=== PATIENT | female | born 1960 | race Caucasian/White ===

== ENCOUNTER 2016-06-22 09:12 | Day surgery (SDC) | payer MEDICARE ==
[~2016-06-22] VITALS: Ht 175.3 cm; Wt 84.4 kg
[~2016-06-22 09:12] MED LIST: AMBIEN5 MG PO; ANUSOL-HC 2.5%30 GM RC; ANUSOL-HC25 MG RC; APAP325 MG PO; BENADRYL50 MG PO; BUMINATE50 ML IV; CARAFATE1 G/10 ML PO; CLARITIN 10 MG10 MG PO; CLARITIN5 MG/5 ML PO; CORDARONE200 MG PO; COUMADIN3 MG PO; COUMADIN5 MG PO; COUMADIN7.5 MG PO; EFFIENT10 MG PO; FLORANEX / LACT1 TAB PO; FLORINEF 0.1 M0.1 MG PO; GEMFIBROZIL600 MG PO; HYDROCODONE-APA1 TAB PO; JANTOVEN6 MG PO; KLONOPIN1 MG PO; LANOXIN125 MCG PO; LEXAPRO20 MG PO; LOPID600 MG PO; LOVENOX INJ100 MG/ML SC; LYRICA25 MG PO; MELATONIN 10 M1 EACH PO; MIDODRINE HCL5 MG PO; MIRAPEX PO; MIRAPEX0.125 MG PO; MOBIC7.5 MG PO; NEURONTIN600 MG; NEURONTIN600 MG PO; NORCO 5/325 TAB1 TA1 PO; PHOSLO667 MG PO; PLAVIX75 MG PO; PRILOSEC20 MG PO; PROAMATINE5 MG PO; PROTONIX40 MG PO; REGLAN5 MG PO; RENVELA800 MG PO; ROCALTROL0.25 MCG PO; SENSIPAR60 MG PO; TESSALON PERLE100 MG PO; TUMS500 MG PO; XANAX0.25 MG PO; ZOCOR80 MG PO; ZOLOFT25 MG PO
[2016-06-22 09:50] LABS: BASOPHILS 0.2 % (0.0-2.0); EOSINOPHILS 2.1 % (0-7); HEMATOCRIT 42.5 % (36.0-48.0); HEMOGLOBIN 12.5 g/dL (12-16); IMMATURE GRANULOCYTES 0.2 % (0-5); LYMPHOCYTES 28.2 % (15-50); MCH 26.3 pg (26.0-34.0); MCHC 29.4 g/dL (31.0-37.0); MCV 89.5 fL (80.0-100.0); MEAN PLATELET VOLUME 12.1 fL (7.4-10.4); MONOCYTES 8.4 % (2-11); NEUTROPHILS 60.9 % (40-80); RBC 4.75 10x6/uL (4.00-5.40); RDW 16.8 % (11.5-14.5); WBC 6.3 10x3/uL (4.8-10.8)
[2016-06-22 10:00] LABS: ANION GAP 10.5 mmol/L (8-16); CALCIUM 9.4 mg/dL (8.5-10.1); CARBON DIOXIDE 33.9 mmol/L (21.0-32.0); CREATININE - SERUM 5.8 mg/dL (0.6-1.3); POTASSIUM - SERUM 3.4 mmol/L (3.5-5.1)
[2016-06-22 10:09] LABS: PLATELET COUNT 150 10x3/uL (130-400)
[2016-06-22 10:10] LABS: APTT 37.4 SECONDS (22.8-39.4); INR 1.82 (0.85-1.17)
[2016-06-22] MEDS ORDERED: RESTORIL7.5 MG PO (11:33)
[2016-06-22 11:36] VITALS: BP 148/87; Ht 175.3 cm; Wt 84.4 kg
[2016-06-22] MEDS ORDERED: ULTRAM50 MG PO (13:14)
--- NOTE | 2016-06-29 14:04 | OP ---
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 POSTOPERATIVE DIAGNOSIS: Squamous cell carcinoma 2 cm in diameter. OPERATION PERFORMED: Excision of a malignant lesion 2 cm in diameter with 0.5 cm margins medially and laterally excising a 7 x 3 cm vertically oriented ellipse of skin. SURGEON: Victorino Da Silva MD ANESTHESIA: Local 1% lidocaine with epinephrine with monitoring by TALENT MANAGER. REFERRING PHYSICIAN: Dr. Curran, Dr. Wang and also Dr. Yen in [place], [place]. PREOPERATIVE NOTE: Ms. Sanchez is a very nice, but a very chronically ill 55-year-old white female, diabetic with end-stage renal disease, on chronic hemodialysis. She has a history of multiple dialysis access thrombosis, hypercoagulable state. She is on chronic anticoagulation therapy and has dialysis 3 days a week. She has at this time, a 2 cm diameter piled up lesion on the dorsum of her left arm, which has recurred after cryotherapy treatment, it has a clinical appearance of a keratoacanthoma, but it certainly may represent a squamous cell carcinoma. It is quite fast growing. She has no evidence of metastasis. She is brought to the operating room at this time to excise the lesion under local and get a diagnosis and margin clearance with frozen section. DESCRIPTION OF PROCEDURE: The patient was placed in supine position and prepped and draped in sterile manner. She had no IV access and we did not give her any IV sedation. Her vital signs were just monitored by the glove maker. I outlined a vertically oriented ellipse, which was 7 cm x 3 cm providing a 0.5 cm margin on the medial and lateral sides of this round lesion, approximately quarter size. The area was infiltrated with lidocaine and then the incision was completed sharply and the specimen was dissected away from the underlying subcutaneous tissues with electrocautery. Sutures were placed, one short suture on the lateral margin and one longer suture on the distal tip of the ellipse and tissue was taken in fresh state to Dr. Ocasio, he performed a frozen section and his diagnosis was squamous cell carcinoma, invasive with clear margins. The wound was examined and hemostasis was obtained with minimal electrocautery. Flaps medially and laterally were raised with blunt dissection and some electrocautery and a primary closure was achieved with a few interrupted inverted 3-0 Vicryl subcutaneous sutures and a running 4-0 Prolene. The wound was dressed with Maxorb Ag, Tegaderm and Cavilon skin prep over which a sterile dry gauze dressing and Spandage were applied. The patient was then taken back to her room in the outpatient department in stable condition. Blood loss was trivial and unreplaced and all sponges, instruments, and needles were accounted for. No drain was used and the surgical specimen was as described. OPERATIVE REPORT [id number] RICHELLE SANCHEZ PLAN: The patient will resume her usual diet and medications. She will resume her usual daily dose of Coumadin starting tomorrow. She will leave the original dressing in place and intact and keep it dry and come to see me in my office next week and I will change her dressing then. I imagine her stitches will need to remain in for about 2 weeks. TRANSINT:[id number] Voice Confirmation ID: [id number] DOCUMENT ID: [id number] VICTORINO DA SILVA MD at 1404 CC: LIZ CURRAN MD, JESUS YEN DO and LONI WANG [id number] DICTATION DATE: 06/22/16 1336 WRAPPER AND PRESERVER: 06/22/16 1800 [facility] 06/22/16 [id number] [place] [address]
== END 2016-06-22 14:40 | disposition home or self-care (01) ==
LOC: D.OPS 09:12
PROVIDERS: Internal Medicine Nephrology
DX: C44.629 Squamous cell carcinoma of skin of left upper limb, including shoulder (principal); G47.30 Sleep apnea, unspecified; K21.9 Gastro-esophageal reflux disease without esophagitis; E11.22 Type 2 diabetes mellitus with diabetic chronic kidney disease; N18.6 End stage renal disease; Z99.2 Dependence on renal dialysis

== ENCOUNTER 2016-08-31 12:38 | Inpatient (IN) | payer MEDICARE ==
[~2016-08-31] VITALS: Ht 175.3 cm; Wt 82.7 kg
[~2016-08-31 12:38] MED LIST changes: -SERTRALINE HCL 50 MG PO; -TEMAZEPAM30 MG PO
--- NOTE | 2016-08-31 23:47 | NUR ---
PT RECEIVED VIA STRETCHER, AWAKE, ALERT, ORIENTED, MOTHER AT SIDE. PT DEMONSTRATES GENERALIZED WEAKNESS TRANSFERRING FROM STRETCHER TO BED, REQUIRING MINIMAL ASSISTANCE. CHIQUITA SHEBA, ROUGH ROUNDER FOR RENAL, WAS NOTIFIED OF PTS ADMITTANCE. SHE DID ORDER NORCO 10/325 1 PO Q 4 HOURS PRN PAIN AND A CHEST X-RAY R/T PT C/O LEFT SIDED RIB/CHEST PAIN FROM FALL. PT DOES HAVE PRESSURE WRAPS TO BLE AND LEFT ELBOW, NO DRAINAGE, BLEEDING, OR OOZING AT THIS TIME. WILL CONTINUE TO MONITOR CLOSELY.
[2016-09-01] VITALS (7 sets, daily range): BP systolic 82–143; BP diastolic 41–70; Ht 175.3 cm; Wt 82.7 kg
[2016-09-01] MEDS ORDERED: TEMAZEPAM30 MG PO (03:57)
[2016-09-01] MEDS ORDERED: LYRICA25 MG PO (04:00)
[2016-09-01] MEDS ORDERED: SERTRALINE HCL 50 MG PO (04:01)
[2016-09-01 05:49] LABS: BASOPHILS 0.2 % (0-2); EOSINOPHILS 2.1 % (0-7); HEMATOCRIT 31.8 % (36.0-48.0); HEMOGLOBIN 9.6 g/dL (12-16); IMMATURE GRANULOCYTES 0.2 % (0-5); LYMPHOCYTES 27.3 % (15-50); MCH 27.9 pg (26.0-34.0); MCHC 30.2 g/dL (31.0-37.0); MCV 92.4 fL (80.0-100.0); MEAN PLATELET VOLUME 10.8 fL (7.4-10.4); MONOCYTES 7.5 % (2-11); NEUTROPHILS 62.7 % (40-80); PLATELET COUNT 133 10x3/uL (130-400); RBC 3.44 10x6/uL (4.00-5.40); RDW 15.8 % (11.5-14.5); WBC 5.7 10x3/uL (4.8-10.8)
--- NOTE | 2016-09-01 06:00 | NUR ---
PT LYING IN BED, EYES CLOSED, RESPIRATIONS EVEN AND UNLABORED. PT IS EASILY ROUSABLE TO VERBAL STIMULI, STATES HER NORCO PRN PAIN IS NOT HELPING AT THIS TIME WITH HER RECENT FALL AND MULTIPLE LACERATIONS. PT DENIES ANY OTHER NEEDS AND IS IN NO ACUTE DISTRESS AT THIS TIME. CONTINUE TO MONITOR CLOSELY. BED LOW, CALL LIGHT IN REACH, SIDE RAILS X 2, HOB 20 DEGREES, MOTHER AT BEDSIDE.
--- NOTE | 2016-09-01 08:06 | NUR ---
PAGED ALFA GLEASON, WAITING ON HER TO CALL BACK.
--- NOTE | 2016-09-01 08:30 | NUR ---
ADMINISTERED 10MG OF NORCO FOR PAIN LEVEL OF 7/10. PT DENIES ANY OTHER NEEDS AT THIS TIME. CALL LIGHT IN REACH, NAD NOTED, FAMILY AT BEDSIDE, WILL CONTINUE TO MONITOR.
--- NOTE | 2016-09-01 10:27 | NUR ---
DIALYSIS COORDINATOR: PATHWAYS: [facility] Tue/Tue/Tue @ 6:20am. Medical records forwarded to home unit for their records. ISABELLA HILL.
--- NOTE | 2016-09-01 11:29 | NUR ---
ADMINISTERED MEDS ORDER, PT IN BED, DENIES ANY NEEDS AT THIS TIME. CALL LIGHT IN REACH, FAMILY AT BEDSIDE, NAD NOTED, WILL CONTINUE TO MONITOR.
[2016-09-01 11:37] LABS: INR 1.94 (0.85-1.17); PROTIME 22.2 SECONDS (11.6-15.0)
[2016-09-01 11:44] LABS: ANION GAP 13.8 mmol/L (8-16); CALCIUM 7.6 mg/dL (8.5-10.1); CARBON DIOXIDE 29.2 mmol/L (21.0-32.0); CREATININE - SERUM 7.7 mg/dL (0.6-1.3)
--- NOTE | 2016-09-01 13:51 | NUR ---
ADMINISTERED NORCO 10MG FOR PAIN LEVEL OF 9/10. PT DENIES ANY OTHER NEEDS AT THIS TIME. FAMILY AT BEDSIDE, NAD NOTED, WILL CONTINUE TO MONITOR.
--- NOTE | 2016-09-01 15:17 | NUR ---
IV ACCESS-22 GAUGE INSERTED IN LEFT AC AREA FOR ACCESS. VASU TELLO RN
--- NOTE | 2016-09-01 16:43 | NUR ---
PT TRANSFERED TO DIALYSIS AT THIS TIME, VIA BED, NAD NOTED.
--- NOTE | 2016-09-01 17:39 | NUR ---
RECEIVED CALL FROM MARIE BEAN FOR BUPRENEX 0.1MG Q4PRN.
--- NOTE | 2016-09-01 18:28 | NUR ---
ADMINISTERED 0.1MG OF BUPRENEX FOR PAIN LEVEL OF 8/10. PT GETTING DIALYSIS AT THIS TIME. NAD NOTED.
--- NOTE | 2016-09-01 18:43 | NUR ---
RECEIVED CALL FROM ALFA GLEASON, SHE STATED TO GIVE PT A ONE TIME DOSE OF 10MG OF COUMADIN AND THAT PT WOULD START BACK ON REGULAR DOSE TOMORROW.
--- NOTE | 2016-09-01 19:30 | NUR ---
RECEIVED REPORT, PT IS DOWN IN DIALYSIS,
[2016-09-02 04:00] VITALS: BP 102/46
--- NOTE | 2016-09-02 04:05 | NUR ---
ASSESSMENT COMPLETE, SEE FLOWSHEET, PT COMPLAINS OF PAIN, WILL GIVE PAIN MEDS ORDER, FAMILY AT BEDSIDE, BED IS LOW, SRX2, WILL CONTINUE TO MONITOR
[2016-09-02 05:47] LABS: BASOPHILS 0.2 % (0-2); HEMATOCRIT 29.1 % (36.0-48.0); HEMOGLOBIN 8.7 g/dL (12-16); LYMPHOCYTES 29.5 % (15-50); MCHC 29.9 g/dL (31.0-37.0); MCV 93.6 fL (80.0-100.0); MEAN PLATELET VOLUME 11.7 fL (7.4-10.4); MONOCYTES 8.6 % (2-11); NEUTROPHILS 59.7 % (40-80); RBC 3.11 10x6/uL (4.00-5.40); RDW 15.8 % (11.5-14.5)
[2016-09-02 06:04] LABS: ANION GAP 11.9 mmol/L (8-16); CARBON DIOXIDE 30.2 mmol/L (21.0-32.0); CREATININE - SERUM 6.3 mg/dL (0.6-1.3); INR 2.11 (0.85-1.17); POTASSIUM - SERUM 3.1 mmol/L (3.5-5.1); PROTIME 23.7 SECONDS (11.6-15.0)
[2016-09-02 06:16] LABS: PLATELET COUNT 106 10x3/uL (130-400); WBC 4.1 10x3/uL (4.8-10.8)
--- NOTE | 2016-09-02 07:44 | NUR ---
AM ROUNDING- RECEIVED REPORT FROM LINEN MANAGER NURSE OPAL. PT IS CURRENTLY LAYING IN BED ON BACK WITH EYES OPEN RESTING. GUEST AT BEDSIDE. ON ROOM AIR. NO MONITOR. IV SEEN TO RIGHT AC THAT IS CURRENTLY SALINE LOCKED. RESERVE LEFT ARM FOR AVF. PT STATES DR. BARLOW STATES PT CAN GO HOME TODAY. WILL CONTINUE TO MONITOR AND CONTINUE WITH PLAN OF CARE.
[2016-09-02 08:17] VITALS: BP 112/46
[2016-09-02 12:00] VITALS: BP 101/46
--- NOTE | 2016-09-02 13:50 | NUR ---
MARILEE MOROCHO (WOUND CARE NURSE) IN PTS ROOM NOW DOING DRESSING CHANGES TO ALL PTS WOUNDS. WILL CONTINUE TO MONITOR.
--- NOTE | 2016-09-02 14:08 | NUR ---
Wound Care Consult: Pt was admitted 09/01 after falling at home and cutting up her legs and left arm. She was on a blood thinner and it was difficult to control bleeding from lacerations. She has a large cut on the left caro with sutures, another on the right caro with sutures, left thigh and left elbow. Pt also has a chronic nonhealing wound on her lower abdomen. All dressings were removed and wounds/lacerations assessed. Bilateral lower leg wounds have intact sutures, no redness, no edema, no odor and have stopped bleeding. Gently cleansed and patted dry. Covered with Adaptic, 4x4s and secured with LINH wraps. The left lower leg has developed 2 large blisters below the pressure dressing. These were left open to air and the lower leg was elevated on a pillow. Left thigh has a laceration that was cleaned and covered with adaptic, 4x4s and secured with a bordered gauze. Left elbow laceration was cleaned and covered with adaptic, 2x2s and secured with bordered gauze. The abdominal wound which measures 4cm x 3cm had a moderate amount of serous drainage, but no odor. It was cleaned and dried and covered with a small piece of Maxorb AG and a bordered gauze. Pt tolerated well. Wound care will continue monitoring.
[2016-09-02 15:59] VITALS: BP 108/52
--- NOTE | 2016-09-02 17:32 | NUR ---
PT IS SITTING UP IN BED EATING DINNER. DENIES ANY NEED AT CURRENT TIME. GUEST AT BEDSIDE. WILL CONTINUE TO MONITOR.
[2016-09-02 19:00] VITALS: BP 112/46
--- NOTE | 2016-09-02 19:25 | NUR ---
RECEIVED REPORT, PT ON ROOM AIR, IV-RAC-SL, PT HAS LAVF-WNL, DIALYSIS, MON, WED, FRI, DRESSING TO ABDOMEN, L.ELBOW, AND BILATERAL LEGS, FAMILY AT BED SIDE, PT ASKING FOR PAIN MEDS, WILL GIVE ORDER, PT HAS COLOSTOMY TO L.SIDE, BED IS LOW, SRX2, ALARM IS ON, WILL CONTINUE PLAN OF CARE
[2016-09-03] VITALS: BP 116/50
[2016-09-03 04:00] VITALS: BP 116/62
[2016-09-03 06:53] LABS: BASOPHILS 0 % (0-2); EOSINOPHILS 2.6 % (0-7); HEMATOCRIT 27.9 % (36.0-48.0); HEMOGLOBIN 8.2 g/dL (12-16); IMMATURE GRANULOCYTES 0.2 % (0-5); LYMPHOCYTES 28.8 % (15-50); MCH 27.6 pg (26.0-34.0); MCHC 29.4 g/dL (31.0-37.0); MCV 93.9 fL (80.0-100.0); MEAN PLATELET VOLUME 11.7 fL (7.4-10.4); MONOCYTES 7.2 % (2-11); NEUTROPHILS 61.2 % (40-80); RBC 2.97 10x6/uL (4.00-5.40); RDW 15.7 % (11.5-14.5); WBC 4.6 10x3/uL (4.8-10.8)
[2016-09-03 06:54] LABS: PLATELET COUNT 129 10x3/uL (130-400)
[2016-09-03 07:02] LABS: INR 2.36 (0.85-1.17)
[2016-09-03 07:11] LABS: CALCIUM 8.1 mg/dL (8.5-10.1); CARBON DIOXIDE 31.3 mmol/L (21.0-32.0); POTASSIUM - SERUM 3.3 mmol/L (3.5-5.1)
--- NOTE | 2016-09-03 07:51 | NUR ---
AM ROUNDING- RECEIVED REPORT FROM TRACTOR DRIVER TEAMSTER NURSE OPAL. PT IS CURRENTLY SITTING UP IN BED WITH EYES OPEN RESTING. GUEST AT BEDSIDE. ON ROOM AIR. NO MONITOR. IV SEEN TO RIGHT AC THAT IS CURRENTLY SALINE LOCKED. RESERVE LEFT ARM FOR AVF. PT IS SUPPOSE TO DIALYZE TODAY PER ELLEN, PERSONAL VEHICLE ADVISOR AND THEN POSSIBLY D/C HOME TODAY. NO NEED AT CURRENT TIME. WILL CONTINUE TO MONITOR AND CONTINUE WITH PLAN OF CARE.
[2016-09-03 08:52] VITALS: BP 105/57
--- NOTE | 2016-09-03 15:32 | NUR ---
Patient Name: RICHELLE CONNOLLY Admission Status: ER Accout number: [id number] Admission Date: 08-31-2016 : 1960 Admission Diagnosis:LACERATION WITHOUT FOREIGN BODY, LEFT LOWER LEG, INIT E Attending: JAVIER Current LOS: 3 Anticipated DC Date: 09-03-2016 Planned Disposition: Home with Home Health Primary Insurance: MEDICARE A & B PLANNED EXTERNAL PROVIDER: [facility] Discharge Planning Comments: * Is the patient Alert and Oriented? Yes 0 * How many steps to enter\exit or inside your home? RAMP 0 * PCP DR. YEN 0 * Pharmacy [facility] [place] [facility] 0 * Preadmission Environment Home with Family 0 * ADLs Independent 0 * Equipment Oxygen Walker 0 * Other Equipment UNKNOWN MEDICAL EQUIPMENT PROVIDER 0 * List name and contact numbers for known caregivers / representatives who currently or will assist patient after discharge: OSEI CONNOLLY, MOTHER, 0 * Community resources currently utilized Other 0 * Please name any agencies selected above. OUTPATIENT DIALYSIS, [facility], MWF, 0600, [facility] 0 * Additional services required to return to the preadmission environment? Yes * Can the patient safely return to the preadmission environment? Yes 0 * Has this patient been hospitalized within the prior 30 days at any hospital? No 0 CM RECEIVED HOME HEALTH AND DISCHARGE ORDER. CM MET WITH PT IN ROOM TO DISCUSS DISCHARGE PLANNING AND NEEDS. PT REPORTS LIVING AT HOME INDEPENDENTLY WITH HER TEEN DAUGHTERS. PT HAS OXYGEN AND WALKER FROM UNKNOWN PROVIDER. PT ATTENDS [facility], M/W/F, 0600, [facility]. PT HAS NO OTHER OUTSIDE SERVICES ASSISTING IN THE HOME. CM DISCUSSED AVAILABILITY OF HOME HEALTH, REHAB SERVICES AND MEDICAL EQUIPMENT. PT ACCEPTED HOME HEALTH, REPORTS HER DAUGHTER MAY BE TEACHABLE FOR WOUND CARE, REQUESTED HOME HEALTH WITH [employer] CHOICE SIGNED, REPORTS HER MOTHER WILL PICK HER UP FOR DISCHARGE HOME TODAY. IMPORTANT MESSAGE FROM MEDICARE PROVIDED AND EXPLAINED. CM CALLED DEDE OF [facility], , REFERRAL PROVIDED AND REQUESTED WEEKEND FOLLOW UP. DEDE PLACED PT ON SCHEDULE FOR TUESDAY ADMIT. CM FAXED REFERRAL AND DISCHARGE INFORMATION TO [facility], . PT AND PT'S MOTHER NOTIFIED, NO FURTHER DISCHARGE NEEDS IDENTIFIED. Bag Shop Worker: Juan Goncalves
--- NOTE | 2016-09-03 16:09 | NUR ---
D/C INSTRUCTIONS EXPLAINED TO PT. D/C PAPERWORK SIGNED BY PT AND PLACED IN CHART. IV TO RIGHT AC REMOVED WITH CATH TIP INTACT. PT HAD SLIGHT BLEEDING FROM WHERE TAPE WAS REMOVED, COVERED SITE WITH 2X2 GAUZE PADS AND SECURED WITH TEGADERM. [facility] HU[facility]ES CALLED AND STATES TO HAVE PT COME BY OFFICE AFTER D/C AND [facility] WILL PROVIDE PT WILL WRITTEN PRESCRIPTIONS FOR D/C MEDICATIONS. PT AND FAMILY AWARE. PT AND MOTHER ARE AWAITING RIDE TO GET HER. WILL CONTINUE TO MONITOR.
--- NOTE | 2016-09-03 17:05 | NUR ---
PT D/C VIA WHEELCHAIR.
== END 2016-09-03 17:06 | disposition home health service (06) | DRG 813 ==
LOC: D.ER 12:38 → D.M2 22:01
PROVIDERS: Emergency Medicine; ADMIT Internal Medicine
PROC: 0HQLXZZ Repair Left Lower Leg Skin, External Approach (ICD-10-PCS; principal; 2016-08-31)
PROC: 0HQKXZZ Repair Right Lower Leg Skin, External Approach (ICD-10-PCS; principal; 2016-08-31)
DX: D68.32 Hemorrhagic disorder due to extrinsic circulating anticoagulants (principal); N18.6 End stage renal disease; Q61.3 Polycystic kidney, unspecified; D68.59 Other primary thrombophilia; S81.812A Laceration without foreign body, left lower leg, initial encounter; S81.811A Laceration without foreign body, right lower leg, initial encounter; R58 Hemorrhage, not elsewhere classified; T45.515A Adverse effect of anticoagulants, initial encounter; Z99.2 Dependence on renal dialysis; W19.XXXA Unspecified fall, initial encounter; I95.9 Hypotension, unspecified; D63.1 Anemia in chronic kidney disease; E83.39 Other disorders of phosphorus metabolism; F32.9 Major depressive disorder, single episode, unspecified; F41.9 Anxiety disorder, unspecified

== ENCOUNTER → 2016-08-31 | Emergency (ER) | payer MEDICARE ==
[2016-06-22 11:36] VITALS: BMI 27.5
[~2016-08-31] MED LIST changes: +RESTORIL7.5 MG PO; +SERTRALINE HCL 50 MG PO; +TEMAZEPAM30 MG PO; +ULTRAM50 MG PO
[2016-08-31 16:51] LABS: BASOPHILS 0.2 % (0-2); EOSINOPHILS 2.2 % (0-7); HEMATOCRIT 37.4 % (36.0-48.0); HEMOGLOBIN 11.3 g/dL (12-16); IMMATURE GRANULOCYTES 0.2 % (0-5); LYMPHOCYTES 26.7 % (15-50); MCH 28.1 pg (26.0-34.0); MCHC 30.2 g/dL (31.0-37.0); MEAN PLATELET VOLUME 10.9 fL (7.4-10.4); MONOCYTES 8.1 % (2-11); NEUTROPHILS 62.6 % (40-80); PLATELET COUNT 153 10x3/uL (130-400); RBC 4.02 10x6/uL (4.00-5.40); RDW 15.6 % (11.5-14.5); WBC 6.3 10x3/uL (4.8-10.8)
[2016-08-31 17:05] LABS: INR 2.01 (0.85-1.17); PROTIME 22.8 SECONDS (11.6-15.0)
[2016-08-31 17:49] LABS: ANION GAP 14.6 mmol/L (8-16); BILIRUBIN - TOTAL 0.5 mg/dL (0.2-1.3); CALCIUM 7.8 mg/dL (8.5-10.1); CARBON DIOXIDE 29.4 mmol/L (21.0-32.0); CREATININE - SERUM 6.4 mg/dL (0.6-1.3); PROTEIN - SERUM 5.9 g/dL (6.4-8.2)
== END ==
LOC: D.ER 12:41
PROVIDERS: Emergency Medicine
DX: S81.812A Laceration without foreign body, left lower leg, initial encounter (principal); S81.811A Laceration without foreign body, right lower leg, initial encounter; X58.XXXA Exposure to other specified factors, initial encounter; Y93.89 Activity, other specified; Y92.89 Other specified places as the place of occurrence of the external cause; I71.4 Abdominal aortic aneurysm, without rupture; N18.9 Chronic kidney disease, unspecified; E83.51 Hypocalcemia

== ENCOUNTER 2016-09-24 10:13 | Inpatient (IN) | payer MEDICARE ==
[~2016-09-24] VITALS: Ht 175.3 cm; Wt 74.3 kg
--- NOTE | ~2016-09-24 | OP ---
PATIENT NAME: RICHELLE SANCHEZ MEDICAL RECORD: [id number] :[birth year] LOCATION:. D.[id number] ADMISSION DATE: SURGEON: VICTORINO DA SILVA MD DATE OF OPERATION: 09/24/2016 PREOPERATIVE DIAGNOSIS: Somewhat neglected infected necrotic soft tissue wound, left leg. POSTOPERATIVE DIAGNOSIS: Somewhat neglected infected necrotic soft tissue wound, left leg. OPERATION PERFORMED: Sharp excisional debridement. SURGEON: Victorino Da Silva MD ANESTHESIA: General with LMA per Dr. Muniz. REFERRING PHYSICIAN: Dr. Yen. PREOPERATIVE NOTE: Ms. Sanchez is a 56-year-old white female patient well known to me. She has end-stage renal disease. She is on chronic hemodialysis and has a coagulopathy with multiple dialysis access procedures. She does well with her HeRO graft if she is maintained on anticoagulation with Coumadin and so her Coumadin has not been discontinued. She fell about a month ago and sustained a deep tangential laceration on the lateral aspect of the left leg, middle third and this was I believe sutured in the Emergency Room that evening. This sutures I do not think were removed in a timely manner. She has now a necrotic wound, which needs a sharp excision and aggressive local wound care as well as intravenous antibiotics. DESCRIPTION OF PROCEDURE: Under anesthesia in supine position, the patient was prepped and draped in sterile manner. The wound is 10 x 15 cm was sharply debrided with a scalpel and curette, some discrete use of electrocautery was necessary for hemostasis. The wound was irrigated with the power irrigation device with saline and Hibiclens and then rinsed with saline. The wound was then packed with gauze, wet with Ancef and gentamicin solution and further dry dressings applied over that and Timmy wrap was applied with a light compression. The patient was awakened and taken to the recovery room in stable condition. PLAN: The patient needs to be hospitalized for wound care and intravenous antibiotics. She will need to have her legs elevated and have the dressing changed b.i.d. Dakin solution 1/4 strength b.i.d. She will most likely be discharged from the hospital first of next week. In the meantime, she will need to have dialysis here. I have started her on vancomycin with 1 gram IV now in the recovery room and renal dose Zosyn. Nephrology will be seeing her and continue her vancomycin dosage. We will consult home health and I ask him to see her prior to her discharge and to carry out the wet-to-dry dressings at home. I would like her to be seen if possible in the [facility] wound care clinic by Dr. Duarte and thereafter home health can be involved and follow instructions per Dr. Duarte. Debrided today was necrotic skin, subcutaneous fat, fascia and muscle. No bone. Cultures were taken for aerobic and anaerobic organisms. OPERATIVE REPORT [id number] RICHELLE SANCHEZ TRANSINT:[id number] Voice Confirmation ID: [id number] DOCUMENT ID: [id number] VICTORINO DA SILVA MD CC: JESUS YEN DO and LONI LAL MD [id number] DICTATION DATE: 09/24/16 1746 MEDICATION ADMINISTRATION PROFESSIONAL: 09/25/16 0259 [facility] [address] [place] [address]
[~2016-09-24 10:13] MED LIST changes: +SERTRALINE HCL 50 MG PO; +TEMAZEPAM30 MG PO
[2016-09-24 13:52] LABS: BASOPHILS 0.2 % (0-2); EOSINOPHILS 1.4 % (0-7); HEMATOCRIT 41.3 % (36.0-48.0); HEMOGLOBIN 11.9 g/dL (12-16); IMMATURE GRANULOCYTES 0.2 % (0-5); LYMPHOCYTES 21.7 % (15-50); MCH 27.5 pg (26.0-34.0); MCHC 28.8 g/dL (31.0-37.0); MCV 95.6 fL (80.0-100.0); MEAN PLATELET VOLUME 10.6 fL (7.4-10.4); NEUTROPHILS 69.5 % (40-80); RBC 4.32 10x6/uL (4.00-5.40); RDW 15.9 % (11.5-14.5); WBC 5.2 10x3/uL (4.8-10.8)
[2016-09-24 13:57] LABS: PLATELET COUNT 208 10x3/uL (130-400)
[2016-09-24 14:05] LABS: ANION GAP 14.5 mmol/L (8-16); APTT 48.2 SECONDS (22.8-39.4); CALCIUM 8.5 mg/dL (8.5-10.1); CARBON DIOXIDE 30.7 mmol/L (21.0-32.0); INR 2.49 (0.85-1.17); POTASSIUM - SERUM 3.2 mmol/L (3.5-5.1)
[2016-09-24 15:25] VITALS: BMI 26.8
--- NOTE | 2016-09-24 19:22 | NUR ---
ARRIVED IN PACU WITHOUT IV ACCESS. DR. DA SILVA CONSULTED REGARDING LOW BLOOD PRESSURE AND NO IV ACCESS. INSTRUCTED BY DR. DA SILVA TO SET UP FOR CENTRAL LINE INSERTION. TRIPLE LUMEN WAS PLACED AT 1815 WITHOUT DIFFICULTY. 200CC OF 0.9% NS BOLUS PER DR. DA SILVA.
--- NOTE | 2016-09-24 19:29 | NUR ---
DRESSING TO LEFT LOWER LEG INFORCED PER DR. DA SILVA.
--- NOTE | 2016-09-24 20:00 | NUR ---
PT RECEIEVED TO ROOM 210 VIA STRETCHER ACCOMPANIED BY RECOVERY ROOM NURSE. DAUGHTER IN ROOM AT THIS TIME. PT ORIENTED TO ROOM AND CALL LIGHT. VERBALIZES UNDERSTANDING. REQUESTS ICE WATER AND MEDICATION FOR PAIN PT RATES 7/10 TO THE LEFT LEG. DENIES OTHER NEEDS. BED LOW. PHONE AND CALL LIGHT IN REACH. SRX2.
--- NOTE | 2016-09-24 22:27 | NUR ---
PT RESTING QUIETLY AT THIS TIME AAOX3 WATCHING TV. STATES PAIN IS A LITTLE BIT BETTER. PT DENIES NEEDS AT THIS TIME. BED LOW. PHONE AND CALL LIGHT IN REACH. SRX2.
--- NOTE | 2016-09-24 22:55 | NUR ---
VANC IVPB INITIATED AT THIS TIME. PT AAOX3. REQUESTS ICE WATER. DENIES OTHER NEEDS. BED LOW. PHONE AND CALL LIGHT IN REACH. SRX2.
--- NOTE | 2016-09-24 23:40 | NUR ---
PT RESTING WELL WITHOUT C/O OR DISTRESS NOTED. NO CHANGES NOTED IN ASSESSMENT. CALL LIGHT WITHIN REACH. WILL CONT TO MONITOR.
--- NOTE | 2016-09-25 00:41 | NUR ---
PT RESTING QUIETLY AT THIS TIME WITH EYES CLOSED. RESPIRATIONS EVEN, NON-LABORED. NO ACUTE DISTRESS NOTED AT THIS TIME. BED LOW. PHONE AND CALL LIGHT IN REACH. SRX2.
[2016-09-25 00:59] VITALS: BP 93/52
--- NOTE | 2016-09-25 04:05 | NUR ---
PT IN BED, WITH EYES CLOSED, BED LOW AND LOCKED, BEDSIDE RAILS X2, CALL LIGHT IN REACH, NAD NOTED, WILL CONTINUE TO MONITOR.
--- NOTE | 2016-09-25 07:23 | NUR ---
SHIFT ASSESSMENT COMPLETE. PATIENT ALERT/ORIENTED. RESPIRATIONS EVEN/UNLABORED AT A RATE OF 16. NO DISTRESS NOTED. LEFT AVF TO UPPER ARM. BRUIT ASCULTATED AND THRILL PALPATED. DRESSING TO LLE, WRAPPED IN LINH BANDAGE, MODERATE AMOUNT OF BLOODY DRAINAGE NOTED TO BANDAGE AND PAD UNDER LEG, ORDERS FOR DRESSING CHANGE TO BE RECIEVED TODAY. NO OTHER NEEDS AT THIS TIME. WILL CONTINUE TO MONITOR.
[2016-09-25 08:18] VITALS: BP 105/59
[2016-09-25 09:44] LABS: BASOPHILS 0 % (0-2); EOSINOPHILS 1.2 % (0-7); LYMPHOCYTES 14.7 % (15-50); MCH 27.1 pg (26.0-34.0); MCHC 28.5 g/dL (31.0-37.0); MEAN PLATELET VOLUME 10.5 fL (7.4-10.4); MONOCYTES 7.8 % (2-11); NEUTROPHILS 76.3 % (40-80); PLATELET COUNT 192 10x3/uL (130-400); RDW 15.9 % (11.5-14.5)
[2016-09-25 09:52] LABS: INR 2.57 (0.85-1.17); PROTIME 27.8 SECONDS (11.6-15.0)
[2016-09-25 09:57] LABS: CALCIUM 8.1 mg/dL (8.5-10.1); CARBON DIOXIDE 29.3 mmol/L (21.0-32.0); POTASSIUM - SERUM 3.3 mmol/L (3.5-5.1); VANCOMYCIN - RANDOM 12.9 ug/mL (10.0-20.0)
[2016-09-25 10:00] LABS: CREATININE - SERUM 5.2 mg/dL (0.6-1.3)
[2016-09-25 10:02] LABS: HEMATOCRIT 28.8 % (36.0-48.0); HEMOGLOBIN 8.2 g/dL (12-16); RBC 3.03 10x6/uL (4.00-5.40)
--- NOTE | 2016-09-25 11:15 | NUR ---
PATIENT RECEIVED BEDBATH; LINENS CHANGED; WET TO DRY DRESSING APPLIED TO LEFT LOWER LEG; RIGHT LOWER LEG WRAPPED WITH WET TO DRY; SMALL ABRASION TO LOWER RIGHT ABD NOTED; MEASURED 1.5 CM IN LENGTH AND DRAINING BRIGHT RED BLOODY DRAINAGE; DRESSING APPLIED WOUND CONSULT PLACED; PATIENT BED IN LOWEST POSITION AND BEDRAILS UP X2; NO DISTRESS NOTED AND NO NEEDS VOICED AT THIS TIME; WILL CONTINUE TO MONITOR.
[2016-09-25 11:44] VITALS: BP 85/45
[2016-09-25 15:03] LABS: BASOPHILS 0.2 % (0-2); EOSINOPHILS 1.3 % (0-7); HEMATOCRIT 28.1 % (36.0-48.0); HEMOGLOBIN 8.1 g/dL (12-16); IMMATURE GRANULOCYTES 0.2 % (0-5); LYMPHOCYTES 15.7 % (15-50); MCH 27.3 pg (26.0-34.0); MCHC 28.8 g/dL (31.0-37.0); MCV 94.6 fL (80.0-100.0); MEAN PLATELET VOLUME 10.2 fL (7.4-10.4); MONOCYTES 8.1 % (2-11); NEUTROPHILS 74.5 % (40-80); PLATELET COUNT 189 10x3/uL (130-400); RBC 2.97 10x6/uL (4.00-5.40); WBC 4.6 10x3/uL (4.8-10.8)
[2016-09-25 16:00] VITALS: BP 90/49
--- NOTE | 2016-09-25 17:45 | NUR ---
PATIENT C/O SORE SPOT ON COCCYX; UPON ASSESSMENT TWO SMALL UNOPENED AREAS WERE VISUALIZED ON EITHER SIDE OF COCCYX; CLAIRE'S CREAM APPLIED TO AREA; NO OTHER NEEDS VOICED AT THIS TIME; BED IN LOWEST POSITION; BEDRAILS UP X 2; CALL LIGHT WITHIN REACH
[2016-09-25 21:00] VITALS: BP 96/49
--- NOTE | 2016-09-25 22:37 | NUR ---
HS MEDS GIVEN WITH FRESH ICE WATER. PT DENIES PAIN OR NEEDS, BED LOW, CL IN REACH.
--- NOTE | 2016-09-26 01:00 | NUR ---
RESTING WITH EYES CLOSED, RESPERATIONS EVEN, NO S/S DISTRESS NOTED.
[2016-09-26 04:00] VITALS: BP 90/52
[2016-09-26 05:27] LABS: BASOPHILS 0.2 % (0-2); EOSINOPHILS 2.2 % (0-7); HEMATOCRIT 26.1 % (36.0-48.0); LYMPHOCYTES 26.6 % (15-50); MCH 27.2 pg (26.0-34.0); MCHC 28.7 g/dL (31.0-37.0); MCV 94.6 fL (80.0-100.0); MEAN PLATELET VOLUME 10.4 fL (7.4-10.4); MONOCYTES 7.7 % (2-11); NEUTROPHILS 63.3 % (40-80); PLATELET COUNT 183 10x3/uL (130-400); RBC 2.76 10x6/uL (4.00-5.40); RDW 15.8 % (11.5-14.5); WBC 4.2 10x3/uL (4.8-10.8)
[2016-09-26 05:32] LABS: HEMOGLOBIN 7.5 g/dL (12-16)
[2016-09-26 05:45] LABS: ANION GAP 13.5 mmol/L (8-16); CREATININE - SERUM 6.7 mg/dL (0.6-1.3); MAGNESIUM - SERUM 1.7 mg/dL (1.8-2.4); PHOSPHOROUS 4.3 mg/dL (2.5-4.9); POTASSIUM - SERUM 3.5 mmol/L (3.5-5.1); VANCOMYCIN - RANDOM 17.2 ug/mL (10.0-20.0)
[2016-09-26 08:00] VITALS: BP 99/54
--- NOTE | 2016-09-26 10:24 | NUR ---
RESP UL ON 2L NC. IV PATENT. CALL LIGHT IN REACH. WILL CONT. PLAN OF CARE.
[2016-09-26 11:45] VITALS: BP 93/51
--- NOTE | 2016-09-26 12:22 | NUR ---
DRSG CHANGED TO LEFT LEG.
--- NOTE | 2016-09-26 12:47 | NUR ---
1 UNIT PRBC STARTED. VS WNL. LINE IS PATENT.
--- NOTE | 2016-09-26 15:44 | NUR ---
BLOOD TRANSFUSION COMPLETED WITHOUT ADVERSE REACTIONS NOTED.
--- NOTE | 2016-09-26 19:51 | NUR ---
ASSESSMENT COMPLETE, A&O, RESPERATIONS EVEN ON RA. RIGHT GROIN CVL WITH NS AT KVO. DRSG TO LEFT LEG INTACT, NO BLEEDING THROUGH AT THIS TIME. PT DENIES PAIN OR NEEDS, BED LOW, CL IN REACH.
--- NOTE | 2016-09-26 20:54 | NUR ---
HS MEDS GIVEN WITH FRESH ICE WATER.
[2016-09-26 21:30] VITALS: BP 105/61
[2016-09-27 00:55] VITALS: BP 117/63
[2016-09-27 05:41] LABS: BASOPHILS 0.2 % (0-2); HEMATOCRIT 29.8 % (36.0-48.0); HEMOGLOBIN 8.8 g/dL (12-16); IMMATURE GRANULOCYTES 0.4 % (0-5); LYMPHOCYTES 28.4 % (15-50); MCH 27.4 pg (26.0-34.0); MCHC 29.5 g/dL (31.0-37.0); MCV 92.8 fL (80.0-100.0); MEAN PLATELET VOLUME 10.7 fL (7.4-10.4); MONOCYTES 6.5 % (2-11); NEUTROPHILS 60.5 % (40-80); RBC 3.21 10x6/uL (4.00-5.40); RDW 15.9 % (11.5-14.5); WBC 4.8 10x3/uL (4.8-10.8)
[2016-09-27 05:42] LABS: PLATELET COUNT 224 10x3/uL (130-400)
[2016-09-27 05:55] VITALS: BP 120/73
[2016-09-27 06:02] LABS: ANION GAP 10.3 mmol/L (8-16); CALCIUM 8.3 mg/dL (8.5-10.1); CREATININE - SERUM 8.1 mg/dL (0.6-1.3); POTASSIUM - SERUM 3.3 mmol/L (3.5-5.1); VANCOMYCIN - RANDOM 16.3 ug/mL (10.0-20.0)
--- NOTE | 2016-09-27 07:15 | NUR ---
AM ROUNDS- PT IN BED, DENIES ANY NEEDS AT THIS TIME. BED LOW AND LOCKED, CALL LIGHT IN REACH, BEDSIDE RAILS X2, NAD NOTED, WILL CONTINUE TO MONITOR.
--- NOTE | 2016-09-27 08:20 | NUR ---
ADMINISTERED AM MEDS. PT IN BED, EATING BREAKFAST. PT DENIES ANY NEEDS AT THIS TIME. CALL LIGHT IN REACH, NAD NOTED, WILL CONTINUE TO MONITOR.
[2016-09-27 08:21] VITALS: BP 103/60
--- NOTE | 2016-09-27 09:31 | NUR ---
PT TRANSFERED TO DIALYSIS VIA BED, NAD NOTED.
[2016-09-27 10:53] VITALS: Ht 175.3 cm; Wt 74.3 kg
--- NOTE | 2016-09-27 12:20 | NUR ---
PT STILL IN DIALYSIS WILL GIVE VANCOMYCIN WHEN SHE GETS BACK TO ROOM.
--- NOTE | 2016-09-27 13:51 | NUR ---
PT JUST TRANSFERD BACK TO ROOM FROM DIALYSIS. PT DENIES ANY NEEDS AT THIS TIME. IVPB VANCOMYCIN STARTED INFUSING AT THIS TIME. TO RT GROIN IV. NAD NOTED, CALL LIGHT IN REACH, WILL CONTINUE TO MONITOR.
--- NOTE | 2016-09-27 14:55 | NUR ---
PROVIDED DRESSING CHANGE TO LEFT LEG, APPLIED DAKIN'S WET TO DRY DRESSING AND COVERED WITH 4IN KERLEX AND APPLIED DPANDAGE ELASTIC NET. PT TOLERATED PROCEDURE WELL, DENIES ANY NEEDS AT THIS TIME. CALL LIGHT IN REACH, WILL CONTINUE TO MONITOR.
--- NOTE | 2016-09-27 15:08 | NUR ---
WOUND CARE CONSULT: NOTED OPEN WOUND TO RIGHT LOWER LEG MEASURING 14CM X 6CM X 0.5CM. WOUND BED IS RED AND BLEEDS EASILY. NO ODOR. APPLIED NEW DRESSING PER DR. DA SILVA'S ORDERS (WET TO DRY USING 1/4 STRENGTH DAKINS/WRAPPED WITH KERLIX AND SECURED WITH STOCKINGETTE). WOUND CARE WILL CONTINUE MONITORING.
--- NOTE | 2016-09-27 15:50 | NUR ---
Patient Name: RICHELLE CONNOLLY Admission Status: Elective Accout number: [id number] Admission Date: 09-25-2016 : 1960 Admission Diagnosis: Attending: CHAGO Current LOS: 2 Anticipated DC Date: 09-28-2016 Planned Disposition: Inpatient Rehab Primary Insurance: MEDICARE A & B PLANNED EXTERNAL PROVIDER: [facility] Discharge Planning Comments: * Is the patient Alert and Oriented? Yes 0 * How many steps to enter\\exit or inside your home? RAMP 0 * PCP DR. YEN 0 * Pharmacy [facility] [place] [facility] 0 * Preadmission Environment Home with Family 0 * ADLs Independent 0 * Equipment Oxygen Walker 0 * Other Equipment UNKNOWN MEDICAL EQUIPMENT PROVIDER 0 * List name and contact numbers for known caregivers / representatives who currently or will assist patient after discharge: OSEI CONNOLLY, MOTHER, 0 * Community resources currently utilized Home Health 0 * Please name any agencies selected above. [facility] [employer], 0 * Additional services required to return to the preadmission environment? Yes * Can the patient safely return to the preadmission environment? Yes 0 * Has this patient been hospitalized within the prior 30 days at any hospital? Yes 0 CM RECEIVED ORDERS FOR DISCHARGE PLANNING AND HOME HEALTH WELL GETTING APOINTMENT AT WOUND CARE CENTER NEXT WEEK AFTER DISCHARGE. CM MET WITH PT IN ROOM TO DISCUSS DISCHARGE PLANNING AND NEEDS. PT REPORTS LIVING AT HOME INDEPENDENTLY WITH HER ADULT DAUGHTER. PT HAS HOME OXYGEN SHE WEARS WHILE SLEEPING, AND A WALKER WITH NO MEDICAL EQUIPMENT PROVIDER PREFERNCE. PT HAS HOME HEALTH WITH [facility] [employer] PRIOR TO ADMISSION AND WOULD LIKE TO CONTINUE USE WHEN SHE GOES HOME. CM DISCUSSED ORDERS AND AVAILABILITY OF HOME HEALTH, REHAB SERVICES AND MEDICAL EQUIPMENT. PT THOUGHT ABOUT GOING HOME WITH HOME HEALTH BUT FEELS SHE HAS BECOME INCREASINGLY WEAK SINCE LAST ADMISSION AND WOULD LIKE TO CONSIDER INPATIENT REHAB "HERE AT [place]." PT REPORTS HAVING BEEN TO [facility] IN THE PAST BUT FEELS SHE WOULD BENEFIT MORE FROM INPATIENT REHAB BEFORE GOING HOME WITH HOME HEALTH; PT REPORTS HER DAUGHTER WILL PICK HER UP FOR DISCHARGE HOME. IMPORTANT MESSAGE FROM MEDICARE PROVIDED AND EXPLAINED. CM PAGED AND SPOKE TO RENAL NURSE NORAH OF PT'S DESIRE FOR INPATIENT REHAB. CM RECEIVED ORDERS FOR PHYSICAL THERAPY EVALUATION WELL INPATIENT REHAB PRESCREENING. CM WAITING RESULTS OF PHYSICAL THERAPY EVALUATION AND INPATIENT REHAB PRESCREENING. Gis Developer: Juan Goncalves, CASE MANAGEMENT
[2016-09-27 16:00] VITALS: BP 90/50
--- NOTE | 2016-09-27 17:09 | NUR ---
Rehab Prescreening Consult recieved and the chart has been reviewed. She has not had a PT or an OT eval ordered and will need to be evaluated by one or both to determine the functional needs she may have to meet criteria for the IRF. Melba Costa RN Clinical Liaisonb, Rehab
[2016-09-27 20:16] VITALS: BP 107/59
[2016-09-28 00:15] VITALS: BP 91/50
--- NOTE | 2016-09-28 01:11 | NUR ---
NURSE ROUNDS 09/27/16 22:00 - PT LYING IN BED, AWAKE, ALERT, ORIENTED LYING IN BED. DRESSING TO LLE IS WET, COVERED WITH BLOODY D/C, REMOVED AND CHANGED WITH DAKINS WET TO DRY ORDERED. PT TOLERATED DRESSING CHANGE WELL. I MADE PT A COLA FLOAT, DENIED ANY OTHER NEEDS. CONTINUE TO MONITOR CLOSELY.
[2016-09-28 05:15] VITALS: BP 104/57
--- NOTE | 2016-09-28 05:38 | NUR ---
PT LYING IN BED, RESTING COMFORTABLY, EASILY ROUSABLE TO VERBAL STIMULI. AM LABS DRAWN FROM RT GROIN TRIALYSIS. PT DENIES ANY NEEDS. CONTINUE TO MONITOR CLOSELY.
[2016-09-28 05:40] LABS: BASOPHILS 0.3 % (0-2); EOSINOPHILS 4.9 % (0-7); HEMATOCRIT 28.1 % (36.0-48.0); HEMOGLOBIN 8.2 g/dL (12-16); LYMPHOCYTES 31.3 % (15-50); MCH 27.6 pg (26.0-34.0); MCHC 29.2 g/dL (31.0-37.0); MCV 94.6 fL (80.0-100.0); MEAN PLATELET VOLUME 10.2 fL (7.4-10.4); MONOCYTES 9.6 % (2-11); NEUTROPHILS 53.9 % (40-80); PLATELET COUNT 195 10x3/uL (130-400); RBC 2.97 10x6/uL (4.00-5.40); RDW 15.6 % (11.5-14.5); WBC 3.6 10x3/uL (4.8-10.8)
[2016-09-28 05:48] LABS: INR 2.9 (0.85-1.17); PROTIME 30.6 SECONDS (11.6-15.0)
[2016-09-28 05:53] LABS: ANION GAP 9.6 mmol/L (8-16); CALCIUM 8.5 mg/dL (8.5-10.1); CARBON DIOXIDE 31.3 mmol/L (21.0-32.0); VANCOMYCIN - RANDOM 21.1 ug/mL (10.0-20.0)
[2016-09-28 06:03] LABS: CREATININE - SERUM 5.6 mg/dL (0.6-1.3); POTASSIUM - SERUM 3.9 mmol/L (3.5-5.1)
--- NOTE | 2016-09-28 07:51 | NUR ---
AM ROUNDING- RECEIVED REPORT FROM PEARL MAKER NURSE CLAUDIA. PT IS CURRENTLY LAYING IN BED ON BACK WITH EYES CLOSED RESTING. 0N 02 AT 2L VIA NC. NO MONITOR. RIGHT GROIN TRIPLE LUMEN SEEN WITH NURSE PORT WITH NS RUNNING AT KVO (10CC). RESERVE LEFT ARM FOR AVF. NO NEED AT CURRENT TIME. WILL CONTINUE TO MONITOR AND CONTINUE WITH PLAN OF CARE.
[2016-09-28 07:57] VITALS: BP 100/57
--- NOTE | 2016-09-28 12:05 | NUR ---
Rehab Note- Spoke with the patient, stated she will think about coming to [facility] and let us know. Spoke with LAURA Lincoln. Will continue to follow at this time. Thank you for this referral! Olimpia Lewis RN Clinical Liaison, [facility] Rehab
--- NOTE | 2016-09-28 14:30 | NUR ---
PT IS CURRENTLY LAYING IN BED ON BACK WITH EYES OPEN RESTING. PT DENIES ANY PAIN AFTER HAVING NORCO. LEG ARE ELEVATED ON PILLOW ORDERED. NO NEED AT CURRENT TIME. WILL CONTINUE TO MONITOR.
[2016-09-28 17:54] VITALS: BP 102/55
--- NOTE | 2016-09-28 18:15 | NUR ---
PT IS CURRENTLY LAYING IN BED ON BACK WITH EYES OPEN RESTING. PT AND I CHANGED COLOSTOMY BAG TO LEFT SIDE OF ABDOMEN. NO NEED AT CURRENT TIME. WILL CONTINUE TO MONITOR.
--- NOTE | 2016-09-28 19:23 | NUR ---
PT LYING IN BED AWAKE, ALERT, ORIENTED, DENIES ANY NEEDS. CONTINUE TO MONITOR CLOSELY.
[2016-09-28 19:55] VITALS: BP 103/57
[2016-09-29 00:48] VITALS: BP 99/52
--- NOTE | 2016-09-29 02:27 | NUR ---
DRESSING CHANGED TO LLE WITHOUT ANY DIFFICULTY. DAKINS WET TO DRY ORDERED. PT SLEPT THROUGH DRESSING CHANGE. CONTINUE TO MONITOR CLOSELY.
[2016-09-29 04:52] VITALS: BP 111/60
[2016-09-29 05:50] LABS: BASOPHILS 0.2 % (0-2); EOSINOPHILS 4.7 % (0-7); HEMATOCRIT 30.2 % (36.0-48.0); HEMOGLOBIN 8.7 g/dL (12-16); IMMATURE GRANULOCYTES 0.2 % (0-5); LYMPHOCYTES 30.6 % (15-50); MCH 27.4 pg (26.0-34.0); MCHC 28.8 g/dL (31.0-37.0); MEAN PLATELET VOLUME 10.9 fL (7.4-10.4); MONOCYTES 7.6 % (2-11); NEUTROPHILS 56.7 % (40-80); PLATELET COUNT 213 10x3/uL (130-400); RBC 3.18 10x6/uL (4.00-5.40); RDW 15.7 % (11.5-14.5)
[2016-09-29 06:05] LABS: WBC 4.9 10x3/uL (4.8-10.8)
[2016-09-29 06:14] LABS: ANION GAP 11.9 mmol/L (8-16); CALCIUM 8.8 mg/dL (8.5-10.1); CARBON DIOXIDE 29.3 mmol/L (21.0-32.0); CREATININE - SERUM 6.9 mg/dL (0.6-1.3); POTASSIUM - SERUM 4.2 mmol/L (3.5-5.1); VANCOMYCIN - RANDOM 20.5 ug/mL (10.0-20.0)
--- NOTE | 2016-09-29 07:48 | NUR ---
AM ROUNDING- RECEIVED REPORT FROM DESIGN ENGINEERING TECHNICIAN NURSE GERMÁN. PT IS CURRENTLY LAYING IN BED ON BACK WITH EYES OPEN RESTING. ON 02 AT 2L VIA NC. NO MONITOR. IV SEEN TO RIGHT GROIN TRIPLE LUMEN WITH NURSE PORT WITH NS RUNNING AT KVO (5CC). RESERVE LEFT ARM FOR AVF. NO NEED AT CURRENT TIME. WILL CONTINUE TO MONITOR AND CONTINUE WITH PLAN OF CARE.
[2016-09-29 08:57] VITALS: BP 111/59
--- NOTE | 2016-09-29 10:57 | NUR ---
Patient Name: RICHELLE CONNOLLY Encounter No: [id number] : 1960 Primary Insurance: MEDICARE A & B Anticipated DC Date: 09-28-2016 Planned Disposition: Inpatient Rehab External Planned Provider: [facility] DCP follow-up note: CM SPOKE TO PT IN ROOM REGARDING DISCHARGE PLAN. PT REPORTS SHE HAS DECIDED ON [facility] IF THEY WILL TAKE HER. CM SPOKE TO MEG OF INPATIENT REHAB, THEY PLAN TO ACCEPT PT TODAY FOR REHAB AFTER DIALYSIS. PT NOTIFIED, IN AGREEMENT WITH DISCHARGE TO INPATIENT REHAB. [facility] TO CONTACT MED 2 NURSE WITH ROOM NUMBER WHEN READY TO ACCEPT PT AND NURSE REPORT. Juan Goncalves, CASE MANAGEMENT
--- NOTE | 2016-09-29 13:17 | NUR ---
1000- PT TO DIALYSIS VIA BED.
[2016-09-29] MEDS ORDERED: PROCRIT/EP10000 UNIT SC (14:47)
[2016-09-29] MEDS ORDERED: HYDROCODON-ACE1 EAC7 PO (14:48)
[2016-09-29] MEDS ORDERED: ZOLOFT50 MG PO (14:48)
[2016-09-29] MEDS ORDERED: BUPRENEX IV (14:48)
[2016-09-29] MEDS ORDERED: DAKIN'S 0.125%480 M1 TOPICAL (14:49)
[2016-09-29] MEDS ORDERED: ULTRAM50 MG PO (14:49)
[2016-09-29] MEDS ORDERED: COLACE100 MG PO (14:49)
[2016-09-29] MEDS ORDERED: MIRALAX17 GM PO (14:49)
--- NOTE | 2016-09-29 16:39 | NUR ---
0945- CHANGED PTS DRESSING TO LEFT LOWER EXTREMITY ORDERED. WOUND MEASURES 12CM X 6CM X 1CM WITH NO ODOR. BLEEDING SEEN TO WOUND BED. COVERED WOUND IN DANKINS WET TO DRY DRESSING AND WRAPPED WITH 4" KERLIX ORDERED. TOLERATED WELL.
--- NOTE | 2016-09-29 17:08 | NUR ---
D/C INSTRUCTIONS EXPLAINED TO PT. D/C PAPERWORK SIGNED BY PT AND PLACED IN CHART. PT IS CURRENTLY EATING DINNER. WILL CALL REPORT TO REHAB. WILL CONTINUE TO MONITOR.
--- NOTE | 2016-09-29 17:16 | NUR ---
CALLED REPORT TO REHAB AND SPOKE WITH BHARTI. WILL D/C PT TO REHAB ORDERED.
--- NOTE | 2016-09-29 17:32 | NUR ---
CHANGES PTS COLOSTOMY BAG WITH ASSISTANCE FROM PT. TIMOTEO CNA IS GETTING PT READY TO D/C TO REHAB NOW.
--- NOTE | 2016-09-29 17:38 | NUR ---
PT D/C VIA WHEELCHAIR TO REHAB.
[2016-09-29] MEDS ORDERED: COUMADIN2.5 MG PO (20:46)
[2016-09-30 17:13] LABS: AEROBE ID Preliminary report (()); RESULT 1 Gram negative rods (())
== END 2016-09-29 17:42 | DRG 856 ==
LOC: D.OPS 10:13 → D.M2 19:30 → D.OPS 09-25 08:25 → D.M2 09-29 17:42
PROVIDERS: Internal Medicine Nephrology; Surgery; ADMIT Internal Medicine Nephrology
PROC: 06HM33Z Insertion of Infusion Device into Right Femoral Vein, Percutaneous Approach (ICD-10-PCS; 2016-09-24)
PROC: B54BZZA Ultrasonography of Right Lower Extremity Veins, Guidance (ICD-10-PCS; 2016-09-24)
PROC: 0JBP0ZZ Excision of Left Lower Leg Subcutaneous Tissue and Fascia, Open Approach (ICD-10-PCS; principal; 2016-09-24 13:30)
PROC: 5A1D60Z (ICD-10-PCS; 2016-09-27)
DX: T81.4XXA Infection following a procedure, initial encounter (principal); N18.6 End stage renal disease; D68.59 Other primary thrombophilia; Z99.2 Dependence on renal dialysis; I95.89 Other hypotension; D63.1 Anemia in chronic kidney disease; G62.9 Polyneuropathy, unspecified; E87.6 Hypokalemia; E83.39 Other disorders of phosphorus metabolism; Y84.8 Other medical procedures as the cause of abnormal reaction of the patient, or of later complication, without mention of misadventure at the time of the procedure; K21.9 Gastro-esophageal reflux disease without esophagitis

== ENCOUNTER 2016-09-29 19:11 | Inpatient (IN) | payer MEDICARE ==
[~2016-09-29] VITALS: Ht 175.3 cm; Wt 82.5 kg
[~2016-09-29 19:11] MED LIST changes: +BUPRENEX IV; +COLACE100 MG PO; +DAKIN'S 0.125%480 M1 TOPICAL; +HYDROCODON-ACE1 EAC7 PO; +MIRALAX17 GM PO; +PROCRIT/EP10000 UNIT SC; +ZOLOFT50 MG PO
--- NOTE | 2016-09-29 20:00 | NUR ---
PT. IN BED WITH HOB UP AND WATCHING TV. NO VOICED NEEDS AT THIS TIME AND SHE HAS HER CALL LIGHT WITHIN REACH.
[2016-09-29] MEDS ORDERED: COUMADIN2.5 MG PO (20:46)
--- NOTE | 2016-09-29 22:30 | NUR ---
PT. IN BED WITH HOB UP FOR COMFORT AND CONTINUES TO WATCH TV WITHOUT ANY VOICED NEEDS. CALL LIGHT WITHIN REACH.
[2016-09-29 23:04] VITALS: BP 100/53; BMI 26.8
--- NOTE | 2016-09-29 23:55 | NUR ---
AFTER ASSESSMENT COMPLETED DRESSING CHANGE DONE TO RT. GROIN IV SITE. SITE IS ACTUALLY A TLSC NOT A TRIALYSIS CATHETER WAS TOLD TO ME IN REPORT.
[2016-09-30 00:50] VITALS: BP 112/58
--- NOTE | 2016-09-30 01:33 | NUR ---
PT. IN BED WITH HOB UP FOR COMFORT WITH EYES CLOSED AND RESP. EVEN. CALL LIGHT WITHIN REACH. ADMISSION PROCESS COMPLETED EARLIER AND PT. HAD NO QUESTIONS. WOUND CARE TO LLE HAD BEEN PROVIDED BY BHARTI DELGADO RN AFTER PT. ARRIVED ON THE UNIT DUE TO IT BEING SATURATED. DRESSING NOW C.D.I.
--- NOTE | 2016-09-30 03:20 | NUR ---
PT. IN BED WITH HOB UP FOR COMFORT WITH EYES CLOSED AND RESP. DEEP AND EVEN. CALL LIGHT WITHIN REACH.
[2016-09-30 05:42] VITALS: BP 108/57
[2016-09-30 06:24] LABS: BASOPHILS 0.4 % (0-2); EOSINOPHILS 4.2 % (0-7); HEMATOCRIT 27.8 % (36.0-48.0); HEMOGLOBIN 7.9 g/dL (12-16); IMMATURE GRANULOCYTES 0.2 % (0-5); LYMPHOCYTES 30.3 % (15-50); MCHC 28.4 g/dL (31.0-37.0); MCV 94.9 fL (80.0-100.0); MEAN PLATELET VOLUME 10.7 fL (7.4-10.4); MONOCYTES 6.7 % (2-11); NEUTROPHILS 58.2 % (40-80); PLATELET COUNT 208 10x3/uL (130-400); RBC 2.93 10x6/uL (4.00-5.40); RDW 15.6 % (11.5-14.5); WBC 5.2 10x3/uL (4.8-10.8)
[2016-09-30 06:38] LABS: INR 3.29 (0.85-1.17); PROTIME 33.8 SECONDS (11.6-15.0)
[2016-09-30 06:48] LABS: ANION GAP 9.7 mmol/L (8-16); CALCIUM 8.9 mg/dL (8.5-10.1); CARBON DIOXIDE 30.9 mmol/L (21.0-32.0); CREATININE - SERUM 5.4 mg/dL (0.6-1.3); POTASSIUM - SERUM 3.6 mmol/L (3.5-5.1); VANCOMYCIN - RANDOM 15.5 ug/mL (10.0-20.0)
--- NOTE | 2016-09-30 08:00 | NUR ---
UP IN BED.BREAKFAST GIVEN.DENIES NEEDS.CL IN REACH.
[2016-09-30 13:42] VITALS: Ht 175.3 cm; Wt 82.5 kg
--- NOTE | 2016-09-30 14:25 | NUR ---
PATIENT ADMITTED TO REHAB FROM ACUTE FLOOR. DR. YEN IS PATIENT PCP. SHE USES [facility] IN [place]. SHE HAS O2 AND A ROLLING WALKER AT HOME. [facility] IS WHOM SHE HAS USED IN THE PAST AND WOULD LIKE TO CONTINUE WHEN DISCHARGED FROM REHAB. PLANS ARE FOR PATIENT TO RETURN HOME. WILL CONTINUE TO FOLLOW WITH PATIENT
--- NOTE | 2016-09-30 15:22 | NUR ---
WOUND CARE CONSULT: PT HAS OPEN WOUND ON LEFT ESCUDERO FROM SURGICAL DEBRIDEMENT. THE CURRENT TREATMENT IS WET TO DRY DRESSINGS USING 1/4 STRENGTH DAKINS SOLUTION BID. SHE ALSO HAS A CHRONIC ABDOMINAL WOUND THAT MEASURES 4CM X 3CM AND HAS A MODERATE AMOUNT OF SEROUS DRAINAGE. WILL RECOMMEND APPLYING MAXORB AG TO THIS AREA. NOTED AREAS OF BRUISING ON BILATERAL BUTTOCKS AT CO[place]YX REGION. THIS IS NOT OPEN AND APPEARS PALE BRUISES. COVERED WITH MEPILEX SACRAL DRESSING TO PROTECT. ALSO DISCUSSED WITH PT THE IMPORTANCE OF CHANGING POSITIONS OFF HER BOTTOM EVERY 2 HOURS WHILE IN BED AND HOURLY IF IN WHEEL CHAIR. PT IS CURRENTLY LYING ON HER RIGHT SIDE AND SHE VOICED UNDERSTANDING ABOUT RELIEVING PRESSURE. AN AIR OVERLAY MATTRESS HAS BEEN PLACED ON THE BED. SHE HAS A CUSHION FOR THE WHEEL CHAIR. WOUND CARE WILL CONTINUE TO MONITOR.
--- NOTE | 2016-09-30 19:55 | NUR ---
PT. IN BED WITH HOB UP FOR COMFORT AND IS NOW ON A FIRST STEP MATTRESS. EYES CLOSED AND RESP. EVEN. PT. AWAKENS EASILY FOR ASSESSMENT. EXPLAINED NEW WOUND CARE ORDERS FOR RLQ ABD WOUND. PT. ACKNOWLEDGED UNDERSTANDING. NO VOICED NEEDS AT THIS TIME AND HER CALL LIGHT IS WITHIN REACH.
[2016-09-30 22:47] VITALS: BP 122/69
--- NOTE | 2016-09-30 23:14 | NUR ---
PT. IN BED WITH HOB UP FOR COMFORT AND FOB ELEVATED PER MD'S ORDERS TO BE ABOVE LEVEL OF HEART. EYES CLOSED AND RESP. DEEP AND EVEN. PT. ON FIRST STEP MATRESS AND HER CALL LIGHT IS WITHIN HER REACH.
--- NOTE | 2016-10-01 03:03 | NUR ---
PT. IN BED WITH HOB UP FOR COMFORT AND REMAINS ON FIRST STEP MATTRESS. EYES CLOSED AND RESP. DEEP AND EVEN. CALL LIGHT WITHIN REACH.
[2016-10-01 06:08] VITALS: BP 112/62
[2016-10-01 07:04] LABS: BASOPHILS 0.2 % (0-2); EOSINOPHILS 3.6 % (0-7); HEMATOCRIT 30.4 % (36.0-48.0); HEMOGLOBIN 8.6 g/dL (12-16); IMMATURE GRANULOCYTES 0.2 % (0-5); LYMPHOCYTES 27.4 % (15-50); MCH 26.7 pg (26.0-34.0); MCHC 28.3 g/dL (31.0-37.0); MCV 94.4 fL (80.0-100.0); MEAN PLATELET VOLUME 10.8 fL (7.4-10.4); MONOCYTES 6.5 % (2-11); NEUTROPHILS 62.1 % (40-80); PLATELET COUNT 207 10x3/uL (130-400); RBC 3.22 10x6/uL (4.00-5.40); RDW 15.2 % (11.5-14.5); WBC 5.3 10x3/uL (4.8-10.8)
[2016-10-01 07:10] LABS: INR 2.72 (0.85-1.17)
[2016-10-01 07:25] LABS: ANION GAP 13.6 mmol/L (8-16); CALCIUM 9.2 mg/dL (8.5-10.1); POTASSIUM - SERUM 3.6 mmol/L (3.5-5.1)
[2016-10-01 07:29] LABS: CREATININE - SERUM 7.1 mg/dL (0.6-1.3)
--- NOTE | 2016-10-01 07:34 | NUR ---
RESTING QUIETLY IN BED CALL LIGHT IN REACH
[2016-10-01 12:00] VITALS: BP 130/64
--- NOTE | 2016-10-01 13:54 | NUR ---
JUST NOW TAKEN TO DIALYSIS IN HER BED. MOD ASST TO TRANSFER FROM W/C TO BED.
[2016-10-01 18:34] VITALS: BP 132/67
--- NOTE | 2016-10-01 19:35 | NUR ---
PT IN BED WITH HOB UP FOR COMFORT. WATCHING TV. ALERT & ORIENTED. COLOSTOMY. DIALYSIS M, W, F. RESERVE LEFT ARM. 02 @ 2L VIA N/C. RIGHT GROIN TRIPLE LUMEN. BED IN LOWEST POSITON AND CALL LIGHT WITHIN REACH.
--- NOTE | 2016-10-01 22:20 | NUR ---
RIGHT GROIN TRIPLE LUMEN CVL DRESSING CHANGED. DUE TO DRAINAGE. STERILE TECHNIQUE USED. PT TOLERATED PROCEDURE WELL.
--- NOTE | 2016-10-01 23:35 | NUR ---
PT IN BED WITH HOB UP FOR COMFORT. EYES CLOSED. CHEST RISING AND FALLING. BED IN LOWEST POSITION AND CALL LIGHT WITHIN REACH.
[2016-10-02 00:02] VITALS: BP 106/59
--- NOTE | 2016-10-02 03:35 | NUR ---
PT IN BED WITH HOB UP FOR COMFORT. EYES CLOSED. RESPIRATIONS EVEN AND UNLABORED. BED IN LOWEST POSITION AND CALL LIGHT WITHIN REACH.
--- NOTE | 2016-10-02 03:45 | NUR ---
IN BED, EYES CLOSED. NO DISTRESS NOTED.
[2016-10-02 05:42] VITALS: BP 118/69
--- NOTE | 2016-10-02 07:15 | NUR ---
RESTING IN BED QUIETLY. CALL LIGHT IN REACH
[2016-10-02 07:45] VITALS: BP 104/50
[2016-10-02 08:09] LABS: PROTIME 23.2 SECONDS (11.6-15.0)
[2016-10-02 08:12] LABS: INR 2.06 (0.85-1.17)
--- NOTE | 2016-10-02 13:49 | NUR ---
RESTING QUIETLY IN HER BED. LLE DSG IN PLACE. AIR MATTRESS IN USE. OXYGEN IN USE. CALL LIGHT IN REACH
[2016-10-02 13:52] VITALS: BP 93/52
--- NOTE | 2016-10-02 17:13 | NUR ---
RESTING QUIETLY IN BACK IN BED. COLOSTOMY HAD TO BE REPLACED IT HAS DEVELOPED A LEAK AND PT WAS COVERED IN STOOL.
[2016-10-02 18:32] VITALS: BP 103/42
--- NOTE | 2016-10-02 19:15 | NUR ---
PT IN BED WITH HOB UP FOR COMFORT. EYES CLOSED. RESPIRATIONS EVEN. COLOSTOMY. DIALYSIS M, W, F. RESERVE LEFT ARM. 02 @ 2L VIA N/C. RIGHT GROIN TRIPLE LUMEN. 1ST STEP AIR MATTRESS. BED IN LOWEST POSITON AND CALL LIGHT WITHIN REACH.
--- NOTE | 2016-10-02 23:15 | NUR ---
PT IN BED WITH HOB UP FOR COMFORT. EYES CLOSED. CHEST RISING AND FALLING. BED IN LOWEST POSITION AND CALL LIGHT WITHIN REACH.
[2016-10-03 00:07] VITALS: BP 104/55
--- NOTE | 2016-10-03 03:49 | NUR ---
PT RESTING QUIETLY, AIR OVERLAY MATTRESS IN PLACE AND OPERATIONAL, PT LYING IN SEMI FOLWER POSITION, NO S/S OF ACUTE DISTRESS.
[2016-10-03 05:36] VITALS: BP 111/62
[2016-10-03 06:46] LABS: INR 2.16 (0.85-1.17); PROTIME 24.1 SECONDS (11.6-15.0)
[2016-10-03 07:53] VITALS: BP 134/67
--- NOTE | 2016-10-03 10:21 | NUR ---
RESTING QUIETLY IN BED. CALL LIGHT IN REACH
[2016-10-03 13:47] VITALS: BP 96/50
--- NOTE | 2016-10-03 13:57 | NUR ---
RESTING QUIETLY IN BED CALL LIGHT IN REACH
--- NOTE | 2016-10-03 18:01 | NUR ---
SITTING UP IN BED EATIN GSUPPER. CALL LIGHT IN REACH
[2016-10-03 18:15] VITALS: BP 130/74
--- NOTE | 2016-10-03 19:15 | NUR ---
PT IN BED WITH HOB UP FOR COMFORT. EYES CLOSED. RESPIRATIONS EVEN. COLOSTOMY. DIALYSIS M, W, F. RESERVE LEFT ARM. 02 @ 2L VIA N/C. RIGHT GROIN TRIPLE LUMEN. 1ST STEP AIR MATTRESS. LEFT ARM FISTULA. BED IN LOWEST POSITION AND CALL LIGHT WITHIN REACH.
--- NOTE | 2016-10-03 20:32 | NUR ---
PT. IN BED LYING ON A FIRST STEP MATTRESS. PT. WATCHING TV AND DENIES ANY NEEDS AT THIS TIME. CALL LIGHT WITHIN REACH.
[2016-10-03 20:57] VITALS: BP 113/68
[2016-10-04] VITALS: BP 122/56
--- NOTE | 2016-10-04 00:30 | NUR ---
PT IN BED WITH HOB UP FOR COMFORT. EYES CLOSED. CHEST RISING AND FALLING. BED IN LOWEST POSITION AND CALL LIGHT WITHIN REACH.
--- NOTE | 2016-10-04 04:30 | NUR ---
RESTING QUIETLY. BED IN LOWEST POSITION AND CALL LIGHT WITHIN REACH.
[2016-10-04 06:15] VITALS: BP 125/71
[2016-10-04 06:57] LABS: BASOPHILS 0.2 % (0-2); EOSINOPHILS 4.1 % (0-7); HEMATOCRIT 31.5 % (36.0-48.0); HEMOGLOBIN 8.9 g/dL (12-16); IMMATURE GRANULOCYTES 0.2 % (0-5); LYMPHOCYTES 25.1 % (15-50); MCH 26.5 pg (26.0-34.0); MCHC 28.3 g/dL (31.0-37.0); MCV 93.8 fL (80.0-100.0); MEAN PLATELET VOLUME 10.6 fL (7.4-10.4); MONOCYTES 5.6 % (2-11); NEUTROPHILS 64.8 % (40-80); PLATELET COUNT 209 10x3/uL (130-400); RBC 3.36 10x6/uL (4.00-5.40); RDW 14.9 % (11.5-14.5); WBC 5.2 10x3/uL (4.8-10.8)
[2016-10-04 07:18] LABS: ANION GAP 12.9 mmol/L (8-16); CALCIUM 9.2 mg/dL (8.5-10.1); CARBON DIOXIDE 29.1 mmol/L (21.0-32.0); CREATININE - SERUM 8.4 mg/dL (0.6-1.3)
[2016-10-04 07:20] LABS: INR 2.18 (0.85-1.17); PROTIME 24.4 SECONDS (11.6-15.0)
--- NOTE | 2016-10-04 08:00 | NUR ---
SHIFT ASSMT COMPLETED.ASSISTED UP TO SIDE OF BED.MEAL TRAY GIVEN.DRSG TO LEFT LOWER LEG INTACT.CL IN REACH.
[2016-10-04 11:56] VITALS: BP 130/68
--- NOTE | 2016-10-04 12:00 | NUR ---
SITTING UP IN WC EATING LUNCH.CL IN REACH.KEVIN THERAPY WELL.
--- NOTE | 2016-10-04 15:05 | NUR ---
TO HD/BED AND ON O2@2L/NC.
[2016-10-04 19:09] VITALS: BP 108/65
--- NOTE | 2016-10-04 20:30 | NUR ---
PT. IN BED WITH HOB UP FOR COMFORT ON A FIRST STEP MATTRESS. NO VOICED NEEDS AT THIS TIME. ASSESSMENT COMPLETED. CALL LIGHT WITHIN REACH. HEELS BRIDGED AT THIS TIME.
[2016-10-04 20:49] VITALS: BP 103/50
--- NOTE | 2016-10-04 23:02 | NUR ---
PT. IN BED WITH HOB UP FOR COMFORT WITH EYS CLOSED AND RESP. DEEP AND EVEN. FIRST STEP MATTRESS IN USE AND NO PROBLEMS. CALL LIGHT WITHIN REACH. O2 VIA N/C ON AT 2L/MIN.
[2016-10-05 00:55] VITALS: BP 121/55
--- NOTE | 2016-10-05 03:01 | NUR ---
PT. IN BED AND HAS TURNED HERSELF ONTO HER LEFT SIDE. PT. REQUESTED ASSISTANCE WITH ADJUST OF PILLOWS FOR SUPPORT TO HEAD AND HER BACK. POSITIONED TO COMFORT AND PT. HAS HER CALL LIGHT WITHIN REACH.
[2016-10-05 05:43] VITALS: BP 105/59
--- NOTE | 2016-10-05 06:13 | NUR ---
PT. IN BED WITH HOB UP FOR COMFORT AND IS LYING ON HER LEFT SIDE. PT. AWAKENS EASILY FOR MORNING VS, WT, LAB DRAW AND MEDS. PT. DENIES ANY NEEDS AT THIS TIME AND REPOSITIONED IN BED ONTO HER RIGHT SIDE WITH PILLOW TO BACK FOR SUPPORT AND PILLOW UNDER FEET TO BRIDGE HEELS. CALL LIGHT WITHIN REACH.
--- NOTE | 2016-10-05 08:00 | NUR ---
SHIFT ASSMT COMPLETED.DENIES NEEDS.DRSG TO LLE INTACT.HAD BLISTER ON ABD IN MIDDLE OF OLD SCARRED INCISION YESTERDAY AND IS OPEN DIME SIZE TODAY.BREAKFAST GIVEN.
[2016-10-05 08:42] LABS: INR 2.06 (0.85-1.17); PROTIME 23.2 SECONDS (11.6-15.0)
[2016-10-05 11:43] VITALS: BP 98/55
--- NOTE | 2016-10-05 12:00 | NUR ---
SITTING UP ON SIDE OF BED FOR LUNCH.CL IN REACH.
--- NOTE | 2016-10-05 13:27 | NUR ---
Dialysis Coordinator: [facility]: [facility] Tue/Tue/Tue @ 6:15am. ISABELLA HILL.
[2016-10-05 18:00] VITALS: BP 107/58
[2016-10-05 19:49] VITALS: BP 110/61
--- NOTE | 2016-10-05 19:49 | NUR ---
ASSESSMENT PER FLOW SHEET, VS OBTAINED, COLOSTOMY INTACT, DRESSING TO LOWER LEFT LEG INTACT WITH NO DRAINAGE NOTED, DRESSING TO RIGH LOWER ABD INTACT WITH NO DRAINAGE NOTED, PT DENIES PAIN, PT MOVED UP IN BED PER THIS RN AND DEDE SALGADO RN, PT REPOSITIONED TO LEFT SIDE, PILLOW BEHIND BACK FOR COMFORT AND SUPPORT, BEDSIE TABLE CLEANED OFF PER PT'S REQUEST, PT DENIES FURTHER NEEDS
--- NOTE | 2016-10-05 20:30 | NUR ---
PT RESTING WITH EYES CLOSED, RESP QUIET, NO DISTRESS NOTED, LEFT UNDISTURBED AT THIS TIME
--- NOTE | 2016-10-05 21:51 | NUR ---
PT RESTING WITH EYES CLOSED, AROUSES TO SOFT VERBAL STIMULATION, ADM 2100 MEDS PER MD ORDERS, SEE EMAR, CALOMESEPTINE APPLIED TO MIDDLE ABD PER MD ORDERS, SEE EMAR, INFORMED PT THAT I WILL BE CHANGING HER DRESSINGS, PT VERBALIZES UNDERSTANDING
--- NOTE | 2016-10-05 22:00 | NUR ---
LOWER RIGHT ABD AND LEFT LEG DRESSING CHANGED PER ORDERS, PT REPORTS HAVING SOME SLIGHT DISCOMFORT, RATES PAIN 3/10, WILL ADM PAIN MED
--- NOTE | 2016-10-05 22:19 | NUR ---
ADM JOEL PO PER MD ORDERS, SEE EMAR, PT DENIES FURTHER NEEDS
[2016-10-05 23:00] VITALS: BP 116/67
--- NOTE | 2016-10-05 23:00 | NUR ---
PT AWAKE, COLOSTOMY BAG BURPED, VS OBTAINED, PT DENIES NEEDS AT THIS TIME
--- NOTE | 2016-10-06 00:12 | NUR ---
PT RESTING WITH EYES CLOSED, RESP QUIET, NO DISTRESS NOTED, LEFT UNDISTURBED AT THIS TIME
--- NOTE | 2016-10-06 02:10 | NUR ---
PT SUPERVISOR GAS METER REPAIR LIGHT, PT UP TO BR VIA WC, PT VOIDED BROWN URINE BY SELF WITH NO DIFFICULTY, PT BACK TO BED, COLOSTOMY BAG BURPED, SMALL AMOUNT OF YELLOWISH BROWNISH STOOL NOTED AT THIS TIME, PT POSITIONED TO RIGHT SIDE WITH PILLOW BEHIND BACK FOR COMFORT AND SUPPORT, LEGS AND HEELS ELEVATED, PT DENIES FURTHER NEEDS OR PAIN AT THIS TIME
--- NOTE | 2016-10-06 04:40 | NUR ---
PT RESTING WITH EYES CLOSED, RESP QUIET, NO DISTRESS NOTED, LEFT UNDISTURBED AT THIS TIME
--- NOTE | 2016-10-06 05:24 | NUR ---
PT RESTING WITH EYES CLOSED, AROUSES TO SOFT VERBAL STIMULATION, ADM 0600 MED PO PER MD ORDERS, SEE EMAR, CVL FLUSHED WITH 10ML OF NS WITH NO DIFFICULTY, WITHDREW 10ML OF BLOOD FOR WASTE, BLOOD DRAWN FOR AM LABS, LINE FLUSHED WITH 10ML OF NS WITH NO DIFFICULTY
[2016-10-06 06:00] VITALS: BP 114/65
--- NOTE | 2016-10-06 06:00 | NUR ---
PT RESTING WITH EYES CLOSED, AROUSES TO SOFT VERBAL STIMULATION, VS OBTAINED, PT UP TO BEDSIDE SCALE, OBTAINED WEIGHT, PT BACK TO BED, COLOSTOMY EMPTIED, YELLOWISH BROWN PASTY STOOL NOTED, END OF COLOSTOMY BAG CLEANED, INFORMED PT THAT I WILL ADM MEDS
[2016-10-06 06:12] LABS: BASOPHILS 0.4 % (0-2); HEMATOCRIT 28.9 % (36.0-48.0); HEMOGLOBIN 8.2 g/dL (12-16); LYMPHOCYTES 27.3 % (15-50); MCH 26.3 pg (26.0-34.0); MCHC 28.4 g/dL (31.0-37.0); MCV 92.6 fL (80.0-100.0); MONOCYTES 6.2 % (2-11); NEUTROPHILS 61.1 % (40-80); PLATELET COUNT 200 10x3/uL (130-400); RBC 3.12 10x6/uL (4.00-5.40); RDW 14.9 % (11.5-14.5)
--- NOTE | 2016-10-06 06:27 | NUR ---
ADM 0600 MEDS PO PER MD ORDERS, SEE EMAR, PT DENIES NEEDS OR PAIN AT THIS TIME
--- NOTE | 2016-10-06 07:00 | NUR ---
SHIFT REPORT TO DAY SHIFT
--- NOTE | 2016-10-06 07:06 | NUR ---
RESTING QUIETLY IN BED CALL LIGHT IN REACH
[2016-10-06 07:10] LABS: INR 2.29 (0.85-1.17); PROTIME 25.3 SECONDS (11.6-15.0)
[2016-10-06 07:12] LABS: ANION GAP 9.7 mmol/L (8-16); CALCIUM 9.7 mg/dL (8.5-10.1); CARBON DIOXIDE 32.2 mmol/L (21.0-32.0); CREATININE - SERUM 7.7 mg/dL (0.6-1.3); POTASSIUM - SERUM 3.9 mmol/L (3.5-5.1); VANCOMYCIN - RANDOM 7.3 ug/mL (10.0-20.0)
[2016-10-06 11:49] VITALS: BP 102/57
--- NOTE | 2016-10-06 11:57 | NUR ---
HAS BEEN WALKING IN HALLS WITH THERAPY. DSG INTACT TO LLE. NO INCREASED DRAINAGE NOTED TO LLE.
--- NOTE | 2016-10-06 14:13 | NUR ---
CARE TEAM MEETING: PATIENT TENATIVE DISCHARGE DATE IS 10/13/16. WILL CONTINUE TO FOLLOW WITH PATIENT AND WILL ASSIST WITH DISCHARGE NEEDS
--- NOTE | 2016-10-06 16:52 | NUR ---
JUST GOT BACK FROM DIALYSIS.
[2016-10-06 18:22] VITALS: BP 90/49
--- NOTE | 2016-10-06 18:54 | NUR ---
RESTING IN BED WITH EYES CLOSED. ATE SUPPER AND C/O OF INCREASED FATIGUE. STILL HAS AIR MATTRESS ON BED. LLE ELEVATED ON PILLOWS. OXYGEN IN USE. CALL LIGHT IN REACH
--- NOTE | 2016-10-06 19:40 | NUR ---
BLUEPRINT ASSEMBLER REPORT PT BP IS 90/49, REPORT TO CHARGE NURSE, WILL MONITOR CLOSELY.
--- NOTE | 2016-10-06 21:30 | NUR ---
PT DRESSING CHANGE:LOWER RIGHT ABD AND LEFT LEG.
--- NOTE | 2016-10-06 21:30 | NUR ---
RECHECK BP, BP IS 122/67.
[2016-10-07 00:06] VITALS: BP 115/64
--- NOTE | 2016-10-07 02:25 | NUR ---
IN BED, EYES CLOSED. NO DISTRESS NOTED.
[2016-10-07 06:37] VITALS: BP 115/63
[2016-10-07 07:41] LABS: INR 2.2 (0.85-1.17); PROTIME 24.5 SECONDS (11.6-15.0)
[2016-10-07 12:24] VITALS: BP 94/48
--- NOTE | 2016-10-07 12:45 | NUR ---
Nutrition Follow Up: Pt is eating 75% meal avg on a renal diet. She is receiving Rigoberto BID. Wt stable. +BM 10/07/16. Meds and labs reviewed. Rec continue current diet, supplement regimen. RD following.
[2016-10-07 15:03] VITALS: BP 96/53
[2016-10-07 17:05] VITALS: BP 138/72
--- NOTE | 2016-10-07 18:04 | NUR ---
SITTING ON SIDE OF BED EATING SUPPER. DENIES NEEDS
--- NOTE | 2016-10-07 18:35 | NUR ---
RESTING QUIETLY IN BED. CALL LIGHT IN REACH
--- NOTE | 2016-10-07 19:30 | NUR ---
PT IN BED WITH HOB UP FOR COMOFRT. EYES CLOSED. RESP. EVEN. COLOSTOMY. RT GROIN TRIPLE LUMEN. LT LOWER LEG DRESSING C/D/I. ABDOMEN DRESSING C/D/I. MEPILEX TO BUTTOCK. DAILY WEIGHT. VITALS Q6H. DIALYSIS M, W, F. DAILY PT INR. O2 @ 2L VIA N/C. 1ST STEP AIR MATTRESS. LEFT ARM RESERVE. LT ARM FISTULA. BED IN LOWEST POSITION AND CALL LIGHT WITHIN REACH.
--- NOTE | 2016-10-07 23:30 | NUR ---
PT IN BED WITH HOB UP FOR COMFORT. EYES CLOSED. CHEST RISING AND FALLING. BED IN LOWEST POSITION AND CALL LIGHT WITHIN REACH.
[2016-10-07 23:54] VITALS: BP 140/71
--- NOTE | 2016-10-08 03:17 | NUR ---
PT RESTING IN SEMI FOLWER POSITION, RESPIRATIONS REGULAR AND UNLABORED, NO S/S OF ACUTE DISTRESS.
[2016-10-08 06:27] VITALS: BP 122/74
[2016-10-08 07:53] LABS: INR 2.39 (0.85-1.17); PROTIME 26.2 SECONDS (11.6-15.0)
[2016-10-08 12:05] VITALS: BP 115/61
--- NOTE | 2016-10-08 14:15 | NUR ---
WOUND CARE REASSESSMENT: Open wound to left caro has improved. Granulation noted. Current treatment is 1/4 strength dakins wet to dry dressings BID. Chronic abdominal wound has improved. Current treatment is Maxorb AG. Bruising to bilateral buttocks remains the same. Skin intact and being protected by mepilex sacral dressing. She is being turned/repositioned q 2 hours while in bed and hourly when up in wheel chair. She has a wheelchair cushion. She is on an air overlay mattress. Wound care continues to monitor.
--- NOTE | 2016-10-08 18:28 | NUR ---
REMAINS IN DIALYSIS. AFTERNOON MEDS NOT GIVEN DUE TO PT BEING OFF FLOOR.
--- NOTE | 2016-10-08 19:35 | NUR ---
PT BACK FROM DIALYSIS.
--- NOTE | 2016-10-08 20:00 | NUR ---
PT IN BED WITH HOB UP FOR COMFORT. WATCHING TV. RESP. EVEN. COLOSTOMY. RT GROIN TRIPLE LUMEN. LT LOWER LEG DRESSING C/D/I. ABDOMEN DRESSING C/D/I. MEPILEX TO BUTTOCK. DAILY WEIGHT. VITALS Q6H. DIALYSIS M, W, F. DAILY PT INR. O2 @ 2L VIA N/C. 1ST STEP AIR MATTRESS. LT ARM RESERVE. LT ARM FISTULA. BED IN LOWEST POSITION AND CALL LIGHT WITHIN REACH.
--- NOTE | 2016-10-08 22:51 | NUR ---
PT. IN BED WITH HOB UP FOR COMFORT LYING ON HER RIGHT SIDE. PT. ON FIRST STEP MATRESS AND HAS HER FEET ELEVATED ON PILLOW TO BRIDGE HEELS. EYES CLOSED AND RESP. EVEN WITH CALL LIGHT WITHIN REACH.
[2016-10-09 00:49] VITALS: BP 106/59
--- NOTE | 2016-10-09 02:50 | NUR ---
PT IN BED WITH HOB UP FOR COMFORT. EYES CLOSED. CHEST RISING AND FALLING. BED IN LOWEST POSITION AND CALL LIGHT WITHIN REACH.
--- NOTE | 2016-10-09 03:36 | NUR ---
PT IN BED WITH HOB UP FOR COMFORT. EYES CLOSED. RESPIRATIONS EVEN & UNLABORED. BED IN LOWEST POSITION AND CALL LIGHT WITHIN REACH.
[2016-10-09 05:52] VITALS: BP 121/68
[2016-10-09 06:14] LABS: BASOPHILS 0.2 % (0-2); EOSINOPHILS 3.1 % (0-7); HEMATOCRIT 29.6 % (36.0-48.0); HEMOGLOBIN 8.4 g/dL (12-16); IMMATURE GRANULOCYTES 0.2 % (0-5); MCH 26.3 pg (26.0-34.0); MCHC 28.4 g/dL (31.0-37.0); MCV 92.5 fL (80.0-100.0); MEAN PLATELET VOLUME 11.3 fL (7.4-10.4); MONOCYTES 7.7 % (2-11); NEUTROPHILS 65.8 % (40-80); PLATELET COUNT 222 10x3/uL (130-400); WBC 4.8 10x3/uL (4.8-10.8)
[2016-10-09 06:38] LABS: ALBUMIN 2.6 g/dL (3.4-5.0); ANION GAP 9.2 mmol/L (8-16); BILIRUBIN - TOTAL 0.4 mg/dL (0.2-1.3); CALCIUM 8.9 mg/dL (8.5-10.1); CREATININE - SERUM 5.5 mg/dL (0.6-1.3); POTASSIUM - SERUM 3.2 mmol/L (3.5-5.1); PROTEIN - SERUM 6.2 g/dL (6.4-8.2)
[2016-10-09 06:40] LABS: PHOSPHOROUS 1.1 mg/dL (2.5-4.9)
[2016-10-09 08:00] VITALS: BP 116/67
--- NOTE | 2016-10-09 08:00 | NUR ---
SHIFT ASSMT COMPLETED.
[2016-10-09 09:23] LABS: INR 2.2 (0.85-1.17); PROTIME 24.5 SECONDS (11.6-15.0)
[2016-10-09 11:58] VITALS: BP 118/68
[2016-10-09 19:34] VITALS: BP 114/68
--- NOTE | 2016-10-09 19:55 | NUR ---
PT COLOSTOMY BAG LEAK,CHANGE NEW BAG.
--- NOTE | 2016-10-09 20:30 | NUR ---
PT'S COLOSTOMY APPLIANCE IS LEAKING IN SEVERAL DIFFERENT SPOTS ON HER WAFER. ASSISTED EMILY SAEZ WITH APPLICATION PROCESS OF NEW WAFER/BAG SETUP. AFTER AREA AROUND STOMA WAS COMPLETELY CLEANED AND DRIED, APPLIED SKIN PREP TO VU STOMA SITE, ALLOWED TO AIR DRY. CUT WAFER OPENING TO SIZE TO FIT STOMA. APPLIED NEW WAFER AND APPLIED PRESSURE AND DEMONSTRATED TO EMILY SAEZ HOW TO MAKE SOME FRICTION TO HYDROCOLLOID ON WAFER TO MAKE IT STICK SECURELY. APPLIED NEW BAG AND DEMONSTATED ALSO HOW TO USE VELCRO CLOSURE. PT. TOLERATED PROCEDURE WITHOUT ANY COMPLAINTS. CALL LIGHT WITHIN REACH.
--- NOTE | 2016-10-09 21:20 | NUR ---
DRESSING CHANGE PER ORDER.
[2016-10-10 00:35] VITALS: BP 139/79
[2016-10-10 06:06] VITALS: BP 122/70
[2016-10-10 06:45] LABS: INR 2.26 (0.85-1.17); PROTIME 25.1 SECONDS (11.6-15.0)
--- NOTE | 2016-10-10 08:00 | NUR ---
SHIFT ASSMT COMPLETED.
[2016-10-10 12:00] VITALS: BP 136/75
--- NOTE | 2016-10-10 12:00 | NUR ---
SITTING ON SIDE OF BED EATING LUNCH.
--- NOTE | 2016-10-10 16:00 | NUR ---
RESTING QUIETLY.CL IN REACH.
[2016-10-10 17:25] VITALS: BP 128/73
--- NOTE | 2016-10-10 20:10 | NUR ---
EMPTY COLOSTOMY BAG.
--- NOTE | 2016-10-10 20:50 | NUR ---
TAKE A SHOWER FOR PT.
--- NOTE | 2016-10-10 21:30 | NUR ---
DRESSING CHANGE PER ORDER.
[2016-10-11 00:26] VITALS: BP 135/77
--- NOTE | 2016-10-11 03:39 | NUR ---
REST QUIETLY IN BED, EYE CLOSE, BED LOW, CALL LIGHT WITHIN REACH.
[2016-10-11 06:01] LABS: INR 2.21 (0.85-1.17); PROTIME 24.6 SECONDS (11.6-15.0)
[2016-10-11 06:05] VITALS: BP 133/75
--- NOTE | 2016-10-11 08:05 | NUR ---
RESTING QUIETLY IN BED. CALL LIGHT IN REACH
[2016-10-11 12:24] VITALS: BP 103/56
--- NOTE | 2016-10-11 14:00 | NUR ---
SITTING IN W/C IN ROOM VISITING WITH SON. DENIES NEEDS.
--- NOTE | 2016-10-11 18:45 | NUR ---
JUST NOW BACK FROM DIALYSIS. AFTERNOON MEDS GIVEN LATE DUE TO PT OFF FLOOR IN DIALYSIS.
[2016-10-11 20:07] VITALS: BP 119/54
[2016-10-11 23:51] VITALS: BP 137/77
--- NOTE | 2016-10-12 | NUR ---
PT IN BED WITH HOB UP FOR COMFORT. EYES CLOSED. RESP. EVEN. BED IN LOWEST P OSITION AND CALL LIGHT WITHIN REACH.
--- NOTE | 2016-10-12 01:00 | NUR ---
RESTING IN BED ON RIGHT SIDE. NO EVIDENT DISTRESS.
--- NOTE | 2016-10-12 03:55 | NUR ---
PT IN BED WITH HOB UP FOR COMFORT. EYES CLOSED. CHEST RISING AND FALLING. BED IN LOWEST POSITION AND CALL LIGHT WITHIN REACH.
[2016-10-12 05:52] VITALS: BP 101/65
[2016-10-12 07:01] LABS: BASOPHILS 0.4 % (0-2); EOSINOPHILS 4.7 % (0-7); HEMATOCRIT 30.1 % (36.0-48.0); HEMOGLOBIN 8.6 g/dL (12-16); IMMATURE GRANULOCYTES 0.2 % (0-5); LYMPHOCYTES 26.1 % (15-50); MCH 26.2 pg (26.0-34.0); MCHC 28.6 g/dL (31.0-37.0); MCV 91.8 fL (80.0-100.0); MEAN PLATELET VOLUME 11.5 fL (7.4-10.4); MONOCYTES 7.1 % (2-11); NEUTROPHILS 61.5 % (40-80); PLATELET COUNT 231 10x3/uL (130-400); RBC 3.28 10x6/uL (4.00-5.40); RDW 15.5 % (11.5-14.5); WBC 5.1 10x3/uL (4.8-10.8)
[2016-10-12 07:10] LABS: INR 2.16 (0.85-1.17); PROTIME 24.2 SECONDS (11.6-15.0)
[2016-10-12 07:13] LABS: ANION GAP 10.4 mmol/L (8-16); CALCIUM 9.8 mg/dL (8.5-10.1); CARBON DIOXIDE 32.1 mmol/L (21.0-32.0); CREATININE - SERUM 6.8 mg/dL (0.6-1.3); POTASSIUM - SERUM 3.5 mmol/L (3.5-5.1)
--- NOTE | 2016-10-12 07:19 | NUR ---
RESTING QUIETLY IN BED WITH EYES CLOSED. CALL LIGHT IN REACH
--- NOTE | 2016-10-12 09:17 | RHP ---
PATIENT: RICHELLE CONNOLLY MEDICAL RECORD: [id number] ACCOUNT: [id number] LOCATION:[facility]1119 : 56 ADMISSION DATE: 09/29/16 REHABILITATION HISTORY AND PHYSICAL EXAMINATION POST ADMISSION PHYSICIAN EXAMINATION Post-admission Physical Examination and History and Physical DATE OF ADMISSION: 09/29/2016 ADMITTING DIAGNOSIS: Infected necrotic wound to left leg. HISTORY OF PRESENT ILLNESS: The patient is a 56-year-old female patient admitted to inpatient rehab with infected necrotic wound to her left lower extremity. She has got a history of end-stage renal disease on hemodialysis 3 times a week. She fell at home several weeks ago and ended up with large laceration to her left lower leg requiring multiple sutures. Since the wound on her leg has not healed and the edges of wound have become necrotic, it was debrided by Dr. Wills. The wound was draining with blood-tinged fluid, admitted for wound care and intravenous antibiotics. She has dressing changes b.i.d. with Dakin solution. Previously, she lived with her 2 daughters with moderately independent with a rolling walker for ADLs and mobility. She still drives, but she has been riding the [employer] bus secondary to dialysis. Currently, she is moderate to max assist for ADLs and mobility. She feels weak. She has trouble getting out of bed or walking without assistance. She would like to be discharged home with her daughters and hopefully get back to her prior level of functioning. COMORBIDITIES: In this patient include end-stage renal disease, right pleural effusion, chronic hypertension, laceration to leg, necrotic wound, anemia, hyperphosphatemia, hyperkalemia, neuropathy, acute pain, debility, arrhythmia, anxiety, depression, electrolytes abnormalities, hyperparathyroidism, polycystic kidney disease, gastroesophageal reflux disease and recent fall. PAST MEDICAL HISTORY: Significant for neuropathy, got a history of parathyroid problems, got a history of skin cancer problems, acid reflux, diverticulitis, depression and anxiety. PAST SURGICAL HISTORY: Includes hernia surgery, , appendectomy, hysterectomy, got a history of Tesio peritoneal catheter placement. She has got a history of plate and pins in her ankle, got a history of parathyroid removal and colostomy. ALLERGIES: SULFA. CURRENT MEDICATIONS: Include Coumadin 5 mg on Tuesday, Tuesday and Tuesday and 2.5 on Tuesday, Tuesday, , Tuesday; Colace 200 mg daily. She is on calcium acetate daily. She is on Zoloft 50 mg daily. She is on Effient 10 mg daily, Protonix 40 mg daily, triamterene 10 mg t.i.d., amiodarone 200 mg daily, tramadol 50 mg q.4 hours p.r.n. She is on Restoril 30 mg q.h.s. p.r.n., Carafate 1 g q.a.c. and q.h.s. She is on sodium hypochlorite solution or Dakin to apply b.i.d. 1/4 strength to her wound; Zocor 80 mg at bedtime, Lyrica 25 mg at bedtime; polyethylene glycol 17 grams in 8 ounces of water daily; metoclopramide 5 mg q.a.c. and at bedtime; Hermitage 5/325 as needed for pain; Florinef 0.1 mg b.i.d.; Procrit 10,000 units Tuesday, Tuesday and Tuesday; HISTORY AND PHYSICAL [id number] RICHELLE CONNOLLY Buprenex 0.1 mg q.4 hours p.r.n. and Xanax 0.5 mg q.4 hours p.r.n. HABITS: No alcohol or tobacco use. FAMILY HISTORY: Noncontributory. SOCIAL HISTORY: The patient hopes to return back home with her daughters and get back to her prior level of functioning. REVIEW OF SYSTEMS: GENERAL: Does complain of weakness and fatigue. HEENT: Denies cold, cough, or congestion. CARDIOVASCULAR: Denies chest pain. PHYSICAL EXAMINATION: VITAL SIGNS: Stable, afebrile. GENERAL: Elderly, older than stated age female in no acute distress. HEENT: Normocephalic, atraumatic. Mucosa moist. NECK: Supple. No lymphadenopathy. LUNGS: Clear. HEART: Regular rate and rhythm. ABDOMEN: Soft. She does have a colostomy in place. NEUROLOGIC: She seems intact. EXTREMITY: She does have dressings in place to her extremity. LABORATORY DATA: Her white count is 5.2, H&H is 10.9 and 27.8 and platelet count was noted to be 208. Her sodium is 139, potassium 3.6, BUN and creatinine of 20 and 5.4 and blood sugars noted to be 91. Her INR today is 3.29. Her random vancomycin level as checked on today was 15.5. ASSESSMENT: This is a 56-year-old female patient admitted to rehab with a working diagnosis of infected left lower extremity. The patient has potential to make improvement. We instituted the following multidisciplinary therapies including to, but not limited to physical, occupational, respiratory, speech, nutritional services, prosthetics and orthotics. Given her complex condition and risk for more complications, rehabilitation services cannot be provided at a low level of care such as a assisted facility. PLAN: 1. Admit to [facility] rehab for intensive inpatient therapy to include the following disciplines: A. Physical therapy to improve gait, all transfer skills and bed mobility to a modified independent level. B. Occupational therapy to improve activities of daily living to a modified independent level. C. Case management to assist with discharge planning and placement options. D. Nutrition to assist with nutritional needs. E. Rehabilitation nursing to assist in monitoring the patient's underlying medical conditions and to assist with any type of bowel or bladder management. 2. The patient's current medication and medical care will be continued. 3. The patient will be placed on standard fall precautions. 4. The patient's estimated length of stay is approximately 7-10 days. 5. Discuss this patient during care team staff meeting this week. TRANSINT:[id number] Voice Confirmation ID: [id number] DOCUMENT ID: [id number] HISTORY AND PHYSICAL [id number] RICHELLE CONNOLLY notes whether there has been none or any medical/functional change since admission: - PUMA attests patient continues to be appropriate for IRF: - BREANNE SRINIVASAN MD at 0917 CC: [id number] DICTATION DATE: 09/30/16 0854 NURSE ANESTHETIST: 09/30/16 1047 ADM IN [id number] [place] [address]
[2016-10-12 11:16] VITALS: BP 124/68
[2016-10-12 18:06] VITALS: BP 107/58
--- NOTE | 2016-10-12 19:15 | NUR ---
PT IN BED WITH HOB UP FOR COMFORT. WATCHING TV. COLOSTOMY. RT GROIN TRIPLE LUMEN. LT LOWER LEG DRESSING C/D/I. ABDOMINAL DRESSING C/D/I. MEPILEX TO BUTTOCKS. DAILY WEIGHT. VITALS Q6H. DIALYSIS M, W, F. DAILY PT INR. O2 @ 2L VIA N/C. 1ST STEP AIR MATTRESS. LT ARM RESERVE. LT ARM FISTULA. BED IN LOWEST POSITION AND CALL LIGHT WITHIN REACH.
--- NOTE | 2016-10-12 23:15 | NUR ---
PT IN BED WITH HOB UP FOR COMFORT. EYES CLOSED. CHEST RISING AND FALLING. BED IN LOWEST POSITION AND CALL LIGHT WITHIN REACH.
[2016-10-13 00:05] VITALS: BP 129/71
--- NOTE | 2016-10-13 03:50 | NUR ---
IN BED, EYES CLOSED. CONTINUES ON 1ST STEP AIR OVERLAY. RESPIRATIONS ARE QUIET AND UNLABORED.
[2016-10-13 05:51] VITALS: BP 123/73
[2016-10-13 07:11] LABS: INR 2.07 (0.85-1.17); PROTIME 23.4 SECONDS (11.6-15.0)
--- NOTE | 2016-10-13 07:13 | NUR ---
INTRODUCED SELF TO PT, PT STATES NO NEEDS AT THIS TIME, WILL CONTINUE TO MONITOR, CALL LIGHT WITHIN REACH.
--- NOTE | 2016-10-13 09:45 | NUR ---
MORNING MEDICATION GIVEN, PT TOLERATED WELL, PT SITTING UP AT BEDSIDE, WILL CONTINUE TO MONITOR, CALL LIGHT WITHIN REACH.
[2016-10-13 12:02] VITALS: BP 105/58
--- NOTE | 2016-10-13 13:37 | NUR ---
PT RESTING IN BED, RESPIRATIONS EVEN, WILL CONTINUE TO MONITOR, CALL LIGHT WITHIN REACH.
--- NOTE | 2016-10-13 14:30 | NUR ---
CVL RIGHT GROIN DC'D WITH CATH TIP INTACT.HELD PRESSURE TO SITE X10 MIN AND OPSITE APPLIED OVER FOLDED 4X4.
--- NOTE | 2016-10-13 16:58 | NUR ---
PT IN DIALYSIS, WILL CONTINUE TO MONITOR.
--- NOTE | 2016-10-13 17:57 | NUR ---
PT IN DIALYSIS, WILL CONTINUE TO MONITOR.
[2016-10-13 20:03] VITALS: BP 114/68
--- NOTE | 2016-10-13 20:10 | NUR ---
BACK FROM DIALYSIS, SIT UP IN WHEELCHAIR AND EAT DINNER.
--- NOTE | 2016-10-13 23:52 | NUR ---
RESING QUIETLY IN BED, EYE CLOSE, CALL LIGHT WITHIN REACH.
[2016-10-14 00:13] VITALS: BP 130/73
--- NOTE | 2016-10-14 02:00 | NUR ---
PT RESTING, EYES CLOSED. RR ARE EVEN AND UNLABORED. BED LOW. CL IN REACH.
[2016-10-14 05:56] VITALS: BP 111/64
[2016-10-14 06:43] LABS: INR 2.05 (0.85-1.17); PROTIME 23.1 SECONDS (11.6-15.0)
--- NOTE | 2016-10-14 08:00 | NUR ---
PATIENT ALERT/ORIENT. OXYGEN ON AT 1.5L PER N/C. FIRST STEP MATTRESS ON BED. COLOSTOMY BAG HAS SMALL AMOUNT OF SOFT BROWN STOOL IN BAG. DR José Luis SRINIVASAN HAS WRITTEN DISCHARGE ORDERS FOR THIS PATIENT.
--- NOTE | 2016-10-14 09:31 | NUR ---
PATIENTS DAUGHTER IN ROOM. OBSERVERD THIS NURSE CHANGE DRESSING TO LEFT LOWER LEG. DISCHARGE MEDICATIONS GONE OVER WITH PATIENT AND DAUGHTER. MEDICATIONS PATIENT DOES NOT HAVE CALLED TO [facility]. PRESCRIPTION FOR NORCO GIVEN TO PATIENT.
--- NOTE | 2016-10-14 09:51 | NUR ---
patient discharging home with family.[facility] health will resume care of patient at home. she will continue with her same HD days at [facility] M-W-F @ 6:15 AM. no new DME needed at this time. Dr. Burnett 10/19/16 @ 10:00, Dr. Wills 10/21/16 @ 12:20. Patient choice form for HOME HEALTH AND [facility] FORM SIGNED, EXPLINED AND FILED IN CHART. ORDERS HAVE BEEN FAXED WITH CONFORMATION RECIEVED
--- NOTE | 2016-10-14 11:00 | NUR ---
CHANGE COLOSTOMY BAG, PT TOLERATED WELL, CALL LIGHT WITHIN REACH.
--- NOTE | 2016-10-14 11:15 | NUR ---
REVIEWED HOME CARE INSTRUCTIONS.DC'D HOME IN STABLE CONDITION.
--- NOTE | 2016-10-14 12:09 | NUR ---
Wound Care reassessment; Open wound left caro is improving. Current wound treatment is wet to dry dressings using 1/4 strength Dakins solution. Chronic open wound of lower abdomen is improving. Currently using Maxorb ag. Bruising to bilateral buttocks is being protected with Mepilex sacral dressing. Wound care continues to monitor.
== END 2016-10-14 11:15 | disposition home health service (06) | DRG 602 ==
LOC: D.REHAB 19:11
PROVIDERS: Internal Medicine Nephrology; ADMIT Emergency Medicine
PROC: 5A1D60Z (ICD-10-PCS; principal; 2016-09-29)
DX: L08.89 Other specified local infections of the skin and subcutaneous tissue (principal); N18.6 End stage renal disease; I12.0 Hypertensive chronic kidney disease with stage 5 chronic kidney disease or end stage renal disease; J90 Pleural effusion, not elsewhere classified; Q61.3 Polycystic kidney, unspecified; Z99.2 Dependence on renal dialysis; D64.9 Anemia, unspecified; E87.5 Hyperkalemia; G62.9 Polyneuropathy, unspecified; R53.81 Other malaise; I49.9 Cardiac arrhythmia, unspecified; F41.8 Other specified anxiety disorders; E87.8 Other disorders of electrolyte and fluid balance, not elsewhere classified; E21.3 Hyperparathyroidism, unspecified; K21.9 Gastro-esophageal reflux disease without esophagitis; W19.XXXD Unspecified fall, subsequent encounter; S81.812D Laceration without foreign body, left lower leg, subsequent encounter

== ENCOUNTER 2016-11-09 05:50 | Day surgery (SDC) | payer MEDICARE ==
[2016-11-08 12:19] LABS: BASOPHILS 0.4 % (0-2); EOSINOPHILS 2.4 % (0-7); HEMATOCRIT 43.6 % (36.0-48.0); HEMOGLOBIN 12.7 g/dL (12-16); IMMATURE GRANULOCYTES 0.2 % (0-5); LYMPHOCYTES 22.6 % (15-50); MCH 26.3 pg (26.0-34.0); MCHC 29.1 g/dL (31.0-37.0); MCV 90.3 fL (80.0-100.0); MEAN PLATELET VOLUME 11.8 fL (7.4-10.4); MONOCYTES 6.3 % (2-11); NEUTROPHILS 68.1 % (40-80); RBC 4.83 10x6/uL (4.00-5.40); RDW 16.9 % (11.5-14.5); WBC 4.6 10x3/uL (4.8-10.8)
[2016-11-08 12:36] LABS: ANION GAP 14.1 mmol/L (8-16); CARBON DIOXIDE 29.2 mmol/L (21.0-32.0); CREATININE - SERUM 3.8 mg/dL (0.6-1.3); POTASSIUM - SERUM 3.3 mmol/L (3.5-5.1)
[2016-11-08 12:55] LABS: PLATELET COUNT 124 10x3/uL (130-400)
[2016-11-08 13:01] LABS: APTT 33.6 SECONDS (22.8-39.4); INR 1.16 (0.85-1.17); PROTIME 14.7 SECONDS (11.6-15.0)
[~2016-11-09] VITALS: Ht 175.3 cm; Wt 79.8 kg
[~2016-11-09 05:50] MED LIST changes: +COUMADIN2.5 MG PO
[2016-11-09] MEDS ORDERED: LOVENOX40 MG/0.4 SC (06:41)
[2016-11-09 06:50] VITALS: BMI 26.2
--- NOTE | 2016-11-09 07:25 | NUR ---
9679 DR. RENDON/PHOTORESIST PRINTER NEPHROLOGY BEEPED FOR ABNORMAL CHEST XRAY REPORT. Galilea JAMESON R.N. [id number] OR, ALENA Montero NOTIFIEDOF ABNORMAL CHEST XRAY REPORT & NEPHROLOGY BEEPED. INFORMED OF IV DEFERRAL TO ANESTHESIA RELATED TO LIMITED OPTIONS. Galilea JAMESON R.N.
--- NOTE | 2016-11-09 07:32 | NUR ---
0732 DR. DA SILVA CALLED INFORMED OF 11/08/16 CHEST XRAY REPORT. AWAITING CALL BACK FROM DR. RENDON/SWIMMING POOL SALESPERSON SALES DEVELOPMENT EXECUTIVE. Galilea JAMESON R.N.
--- NOTE | 2016-11-09 10:35 | NUR ---
PT ARRIVED TO ROOM FROM RECOVERY. PT IS ALERT AND ORIENTED RESTING QUIETLY IN BED. VITALS BEING MONITERED Q15MIN PER POST PROCEDURE POLICY. VSS AT THIS TIME. PT HAS R.FA PIV WITH DRSG CDI AND SWAB CAPS IN USE. PT IS A RESERVE L.ARM FOR DIALYSIS WITH DRSG CDI. PT HAS A LEFT CALF DRSG CDI WELL A LEFT THIGH WRAPPED WITH LINH BANDAGE. SPECIFIC WOUND ORDERS GIVEN AND WILL ABIDE BY THEM. PT DENIES ANY CURRENT PAIN OR NEEDS. WILL CPOC.
[2016-11-09 10:59] VITALS: BP 116/61; BMI 26.0
--- NOTE | 2016-11-09 11:30 | NUR ---
PT STILL LYING WITH FOB ABOVE HEAD. DRSG CDI AND UNMOVED. VSS AND STILL BEING MONITERED AND RECORDED PER POLICY. PT HAS FAMILY AT BEDSIDE AND DENIES ANY CURRENT PAIN OR NEEDS. CL IN REACH, BED IN LOWEST, SIDE RAILS X2. WILL CPOC.
--- NOTE | 2016-11-09 12:15 | NUR ---
SAT PT UP IN BED TO EAT LUNCH. PT KNOWS ITS VERY IMPORTANT TO KEEP FOB ELEVATED AND WHEN SHES FINISHED EATING SHE WILL CALL.
--- NOTE | 2016-11-09 13:00 | NUR ---
PT FINISHED EATING AND STATES LUNCH WAS GOOD. LOWERED PTS HEAD BACK DOWN AND ELEVATED FOB ABOVED HEAD. L.LEG DRSGS STILL INTACT AND HAVENT BEEN DISTURBED. L.THIGH DRSG DOES SHOW SCANT AMOUNT OF BLOOD DRAINAGE WILL TRY TO REFRAIN FROM CHANGING DRSG UNTIL TOMORROW SINCE IT WAS JUST PLACED IN SURGERY BUT IS BLOOD SEEPS THROUGH WILL CHANGE PER DRESSING ORDER. PT RESTING AND DENIES ANY CURRENT PAIN OR FURTHER NEEDS. CL IN REACH, BED IN LOWEST, SIDE RAILS X2. WILL CPOC.
[2016-11-09 15:54] VITALS: BP 108/58
--- NOTE | 2016-11-09 16:56 | NUR ---
ASSISTED PT UP IN BED FOR DINNER TRAY. PTS L.THIGH DRSG SOILED WITH BRIGHT RED BLOOD SO DRSG WAS CHANGED. ADAPTIC LEFT IN PLACE AND CLEAN NO BLOOD NOTED, SALINE MOISTENED GUAZE PLACED AND THEN DRY 4X4 IN PLACE. WRAPPED WITH 4" KERLIX AND THEN LINH BANDAGE. L.LOWER LEG DRSG REMAINS CDI AND UNMOVED. WILL PLACE PT BACK IN POSITION AFTER DINNER. PT HAS FAMILY AT BEDSIDE. NO FURTHER NEEDS AT THIS TIME. CL INREACH, BED IN LOWEST, SIDE RAILS X2. WILL CPOC.
--- NOTE | 2016-11-09 19:38 | NUR ---
PT IN BED WITH FEET ELEVATED ABOVE HEAD ORDERED. ALERT & ORIENTED. PT STATES SHE HAS A PAIN LEVEL OF 0/10. LEFT ARM RESERVE. ANURIA. DIALYSIS M, W, F. BED REST WITH BATHROOM PRIVLEGES. COLOSTOMY. O2 @ 2L VIA N/C. RIGHT FA SALINE LOC BED IN LOWEST POSITION AND CALL LIGHT WIHTIN REACH.
[2016-11-09 20:39] VITALS: BP 111/63
[2016-11-10 00:07] VITALS: BP 121/67
--- NOTE | 2016-11-10 01:42 | NUR ---
PT LYING IN BED ON HER BACK, EYES CLOSED, RESPIRATIONS EVEN AND UNLABORED, FEET/LEGS ELEVATED ABOVE PTS HEAD ORDERED. PT EASILY ROUSABLE TO VERBAL STIMULI. CONTINUE TO MONITOR CLOSELY. BED LOW, CALL LIGHT IN REACH, SIDE RAILS X 2.
--- NOTE | 2016-11-10 03:00 | NUR ---
PT LYING IN BED, EYES CLOSED. CHEST RISING AND FALLING. BED IN LOWEST POSITION AND CALL LIGHT WITHIN REACH.
--- NOTE | 2016-11-10 04:30 | NUR ---
PT'S LEFT THIGH DRESSING SOILED WITH BRIGHT RED BLOOD. OLD DRESSING REMOVED, BUT LEFT ADAPTIC IN PLACE. 4X4'S APPLIED ON TOP OF ADAPTIC, WRAPPED WITH KERLIX THE LINH WRAP. PT STATES SHE HAS A PAIN LEVEL OF 3/10. PT TOLERATED DRESSING CHANGE WELL AND HAD NO COMPLAINTS.
--- NOTE | 2016-11-10 05:07 | NUR ---
PT LYING IN BED. EYES CLOSED. RESP. EVEN. BED IN LOWEST POSITION AND CALL LIGHT WITHIN REACH.
[2016-11-10 05:12] VITALS: BP 105/63
[2016-11-10 05:35] LABS: INR 1.13 (0.85-1.17); PROTIME 14.4 SECONDS (11.6-15.0)
--- NOTE | 2016-11-10 07:27 | NUR ---
AM ROUNDS - PT RESTING QUIETLY, PT DENIES NEEDS AT THIS TIME. FEET ELEVATED ABOVE HEAD PER ORDERS. RR EVEN AND UNLABORED, WILL CTM.
[2016-11-10 09:40] VITALS: BP 107/62
--- NOTE | 2016-11-10 10:16 | NUR ---
PT TRANSFERRED TO DIALYSIS VIA BED.
[2016-11-10 13:16] VITALS: Ht 175.3 cm; Wt 79.8 kg
--- NOTE | 2016-11-10 13:22 | NUR ---
CANCEL SNIFF TEST UNTIL PATIENT CAN STAND PER DR HAMLIN. NURSE JANINE, MARILEE NOTIFIED.
--- NOTE | 2016-11-10 14:37 | NUR ---
PT RECIEVED TO ROOM FROM DIALYSIS. RR EVEN AND UNLABORED. DENIES NEEDS AT THIS TIME, REPORTS BEING TIRED. BED IN LOWEST POSTION, CALL FIGUEROA IN REACH, WILL CTM.
[2016-11-10 16:29] VITALS: BP 111/60
--- NOTE | 2016-11-10 18:34 | NUR ---
DRESSING ON LEFT THIGH SATURATED WITH BLOOD. REMOVED SATURATED DRESSING AND APPLIED ADAPTIC, WET 4X4 ON SITE AND THEN COVERED WITH DRY 4X4. WRAPPED WITH 4 INCH CURLEX AND LINH BANDAGE PER ORDERS. BED BATH AND LINEN CHANGE GIVEN. PT RESTING QUIETLY. WILL GIVE REPORT ON PT CONDITION FOR THE DAY.
[2016-11-10 19:00] VITALS: BP 112/59
--- NOTE | 2016-11-10 21:01 | NUR ---
ALERT/AWAKE ORIENTED X 4, WATCHING TV. ADMIN SCHED MEDS, RESTORIL AND XANAX PER REQUEST FOR SLEEP AND SHAKINESS. LEFT UPPER DRSG WEEPING. REINFORCED WITH ABD PAD. CHANGED GOWN AND TOP SHEET. NO OTHER NEEDS VOICED.
--- NOTE | 2016-11-11 01:30 | NUR ---
RESTING QUIETLY WITH EYES CLOSED. RR EVEN U/L. CL IN REACH.
[2016-11-11 06:22] VITALS: BP 141/75
--- NOTE | 2016-11-11 06:30 | NUR ---
CHANGED LEFT UPPER LEG DRSG PER ORDER. ADMIN SCHED MEDS.
--- NOTE | 2016-11-11 08:01 | NUR ---
ASSESSMENT COMPLETED.ALERT AND ORIENTED.RERSERVED LEFT ARM. LEFT AVF. COLOSTOMY TO LEFT MID ABD.LEFT UPPER LEG HAS A DRSG, CLEAN AND DRY. LEFT LOWER LEG WITH DRSG. SCD TO RIGHT LEG. DRSG TO ABD. DENIES ANY NEEDS.CALL LIGHT IN REACH WITH SR UP.
[2016-11-11 08:27] VITALS: BP 132/67
[2016-11-11 12:05] VITALS: BP 116/59
--- NOTE | 2016-11-11 12:41 | NUR ---
HOB UP FOR DIET. DENIES ANY NEEDS. CALL LIGHT IN REACH WITH SR UP. WILL MONITOR
[2016-11-11 13:44] LABS: BASOPHILS 0.2 % (0-2); EOSINOPHILS 1.4 % (0-7); HEMATOCRIT 37.7 % (36.0-48.0); HEMOGLOBIN 10.9 g/dL (12-16); LYMPHOCYTES 24.6 % (15-50); MCH 26.3 pg (26.0-34.0); MCHC 28.9 g/dL (31.0-37.0); MCV 91.1 fL (80.0-100.0); MEAN PLATELET VOLUME 12.2 fL (7.4-10.4); MONOCYTES 5.3 % (2-11); NEUTROPHILS 68.5 % (40-80); PLATELET COUNT 107 10x3/uL (130-400); RBC 4.14 10x6/uL (4.00-5.40); RDW 16.9 % (11.5-14.5); WBC 4.2 10x3/uL (4.8-10.8)
[2016-11-11 13:58] LABS: APTT 45.3 SECONDS (22.8-39.4); INR 1.14 (0.85-1.17); PROTIME 14.5 SECONDS (11.6-15.0)
[2016-11-11 14:03] LABS: ALBUMIN 2.7 g/dL (3.4-5.0); ANION GAP 10.5 mmol/L (8-16); BILIRUBIN - TOTAL 0.39 mg/dL (0.2-1.3); CALCIUM 8.5 mg/dL (8.5-10.1); CARBON DIOXIDE 33.3 mmol/L (21.0-32.0); CREATININE - SERUM 5.6 mg/dL (0.6-1.3); POTASSIUM - SERUM 3.8 mmol/L (3.5-5.1)
--- NOTE | 2016-11-11 14:54 | NUR ---
As per telephone conversation with Dr. Wills, removed the dressing from donor site on left thigh and redressed. The site measures 4x2. Gently cleansed surrounding skin and patted dry. Applied a 4x2 piece of surgicel fibrillar to donor site, covered with Maxorb AG and 4x4s, held in place with medipore. Then loosely wrapped with kerlix and secured with LINH. Pt tolerated well. Will reassess.
--- NOTE | 2016-11-11 16:08 | NUR ---
0.1MG BUPERNEX GIVEN FOR C/O PAIN. WILL MONITOR
[2016-11-11 16:43] VITALS: BP 113/58
--- NOTE | 2016-11-11 17:29 | NUR ---
LYING QUIETLY WITH EYES CLOSED. DRSG TO LEFT UPPER LEG DRY AND INTACT. LEFT LEG ELEVATED ON PILLOWS. DENIES ANY NEEDS. CALL LIGHT IN REACH WITH SR UP. WILL MONITOR
--- NOTE | 2016-11-11 19:20 | NUR ---
ALERT/AWAKE WATCHING TV. DENIES ANY NEEDS OR DISCOMFORTS. LEFT UPPER LEG DRSG C/D/I. NO BLEEDING NOTED. REQUESTED RT LEG SCD OFF FOR AWHILE.
[2016-11-11 20:00] VITALS: BP 112/59
--- NOTE | 2016-11-11 21:05 | NUR ---
ADMIN SCHED MEDS. REQUESTED LIGHTS OFF AND DOOR CLOSED TO SLEEP. ASSESSED LEG WITH NO S/S OF BLEEDING. COLOSTOMY BAG IS INTACT/EMPTY.
[2016-11-12 04:00] VITALS: BP 101/53
[2016-11-12 06:23] LABS: BASOPHILS 0.3 % (0-2); EOSINOPHILS 1.8 % (0-7); HEMATOCRIT 36.3 % (36.0-48.0); HEMOGLOBIN 10.4 g/dL (12-16); IMMATURE GRANULOCYTES 0.3 % (0-5); LYMPHOCYTES 35.8 % (15-50); MCH 26.4 pg (26.0-34.0); MCHC 28.7 g/dL (31.0-37.0); MCV 92.1 fL (80.0-100.0); MEAN PLATELET VOLUME 11.7 fL (7.4-10.4); MONOCYTES 7.3 % (2-11); NEUTROPHILS 54.5 % (40-80); PLATELET COUNT 100 10x3/uL (130-400); RBC 3.94 10x6/uL (4.00-5.40); RDW 16.7 % (11.5-14.5); WBC 3.3 10x3/uL (4.8-10.8)
[2016-11-12 06:31] LABS: APTT 36.7 SECONDS (22.8-39.4); INR 1.06 (0.85-1.17); PROTIME 13.6 SECONDS (11.6-15.0)
[2016-11-12 06:49] LABS: ALBUMIN 2.7 g/dL (3.4-5.0); ANION GAP 9.7 mmol/L (8-16); BILIRUBIN - TOTAL 0.34 mg/dL (0.2-1.3); CALCIUM 8.7 mg/dL (8.5-10.1); CARBON DIOXIDE 35.2 mmol/L (21.0-32.0); POTASSIUM - SERUM 3.9 mmol/L (3.5-5.1); PROTEIN - SERUM 6.1 g/dL (6.4-8.2)
--- NOTE | 2016-11-12 08:33 | NUR ---
ASSESSMENT COMPLETED. DENIES ANY NEEDS. PT HAS A LEFT AVF. DRSG TO LEFT UPPER LEG AT GRAFT SITE, NO BLEEDING NOTED.FOOT OF BED ELEVATED. DRSG TO LEFT LOWER LEG WITH DRSG CLEAN AND DRY. COLOSTOMY TO LEFT LOWER ABD. WILL MONITOR
[2016-11-12 08:58] VITALS: BP 101/57
--- NOTE | 2016-11-12 10:01 | NUR ---
TO DIALYIS PER BED
--- NOTE | 2016-11-12 10:30 | NUR ---
RESTING QUIETLY NAD NOTED
--- NOTE | 2016-11-12 14:00 | NUR ---
Nutrition Follow Up: Pt was unavailable at the time of RD visit. Interview deferred at this time. Noted pt may d/c home today. Pt is eating 61% meal avg on a renal ADA diet. Wt stable. Labs reviewed. No BM. Meds noted including Sorbitol, Dulcolax. Rec continue current diet. Will send Rigoberto BID to promote wound healing. RD following.
--- NOTE | 2016-11-12 15:45 | NUR ---
BACK FROM DIAYLSIS. ALERT AND ORIENTED. DENIES ANY NEEDS. V/S STABLE. WILL MONITOR
--- NOTE | 2016-11-12 16:08 | NUR ---
Wound care: Right thigh (donor site) remains intact with Surgicel fibrillar and Maxorb Ag. Cut away edges that were not adhered to site. Cleansed surrounding skin and patted dry. Kept the fibrillar and maxorb ag over site (did not remove d/t risk of bleeding) covered with 4x4s, wrapped with kerlix and secured with LINH. Right lower Leg is the graft site. It has steristrips intact and is covered with Adaptic. Holding the adaptic in place (as to not disturb the graft site) removed 4x4s. Gently moistened the site with normal saline and recovered with 4x4s. Secured by loosely wrapping with coban. Wound care will continue to monitor. Plans for d/c home today, with f/u at Dr. Wills's on Tuesday. HH will start on changing dressings.
--- NOTE | 2016-11-12 16:20 | NUR ---
Patient Name: RICHELLE CONNOLLY Admission Status: Elective Accout number: [id number] Admission Date: 11-09-2016 : 1960 Admission Diagnosis: Attending: TRACEE Current LOS: 3 Anticipated DC Date: 11-12-2016 Planned Disposition: Home with Home Health Primary Insurance: MEDICARE A & B PLANNED EXTERNAL PROVIDER: [facility] Discharge Planning Comments: * Is the patient Alert and Oriented? Yes 0 * How many steps to enter\exit or inside your home? RAMP 0 * PCP DR. YEN 0 * [facility] [place] [facility] * Preadmission Environment Home Alone 0 * ADLs Independent 0 * Equipment Oxygen Rolling Walker 0 * Other Equipment OXYGEN AT NIGHT ONLY UNKNOWN MEDICAL EQUIPMENT PROVIDER 0 * List name and contact numbers for known caregivers / representatives who currently or will assist patient after discharge: OSEI CONNOLLY, MOTHER, 0 * Community resources currently utilized Other 0 * Please name any agencies selected above. OUT[facility] DIALYSIS, [facility], M/W/F, 0630AM, [facility] 0 * Additional services required to return to the preadmission environment? Yes * Can the patient safely return to the preadmission environment? Yes 0 * Has this patient been hospitalized within the prior 30 days at any hospital? No 0 CM RECEIVED DISCHARGE AND HOME HEALTH ORDER, CM MET WITH PT IN ROOM TO DISCUSS DISCHARGE PLANNING AND NEEDS. PT REPORTS LIVING AT HOME INDEPENDENTLY WITH HER FAMILY. PT HAS ROLLING WALKER AND NIGHT TIME OXYGEN, PROVIDER IS UNKNOWN. PT HAS NO OUTSIDE SERVICES ASSISTING IN THE HOME BUT HAS HAD [facility] IN THE PAST. CM DISCUSSED AVAILABILITY OF HOME HEALTH, REHAB SERVICES AND MEDICAL EQUIPMENT. PT WOULD LIKE [facility], CHOICE SIGNED. PT REPORTS HER FAMILY WILL PICK HER UP TODAY FOR DISCHARGE HOME, SHE NEEDS TO CALL THEM AND IT WILL TAKE 45 MINUTES OR SO FOR THEM TO ARRIVE. CM NOTIFIED BUSINESS INFORMATION ANALYST NURSE. CM CALLED [facility], , SPOKE TO NURSE DEDE, PROVIDED REFERRAL INFORMATION, DEDE REPORTS [facility] WILL ACCEPT PT FOR HOME HEALTH FOLLOW UP AND WILL CALL THE DOCTORS OFFICE ON TUESDAY TO ENSURE FOLLOW UP DATE IS ACCURATE, CM NOTIFIED DEDE THAT WOUND NURSE BAILEE ADVISED FIRST DAY FOR ADMIT WOULD BE NEXT TUESDAY. CM FAXED REFERRAL TO [facility], . PT NOTIFIED. Curing Oven Tender: Juan Goncalves
--- NOTE | 2016-11-12 17:40 | NUR ---
PAGE INTO DR DA SILVA FOR DISCHARGE MEDICATIONS TO BE DONE. AWAITING CALL BACK.
--- NOTE | 2016-11-12 17:46 | NUR ---
TIRSO GLEASON APN BEEPED FOR CONTINUATION OF DISCHARGE MEDS, AWAITING CALL BACK.
--- NOTE | 2016-11-12 18:22 | NUR ---
LYING QUIETLY LEFT LEG ELEVATED.DRSGS DRY AND INTACT TO LEFT LEG. LEFT AVF WITH DRSG DRY AND INTACT. PT TO GO HOME TOMORROW
--- NOTE | 2016-11-12 19:14 | NUR ---
RECEIVED REPORT, ASSUMED CARE OF PATIENT. ALERT/AWAKE, DENIES ANY NEEDS OR DISCOMFORTS. ORIENTED TO CALL LIGHT FOR ANY NEEDS.
[2016-11-12 20:00] VITALS: BP 105/56
--- NOTE | 2016-11-12 21:10 | NUR ---
ADMIN SCHED MEDS. DENIES ANY NEEDS. LEFT LEG DRSG CDI. COLOSTOMY BAG INTACT CONTAINING SMALL AMT STOOL.
--- NOTE | 2016-11-13 01:30 | NUR ---
RESTING WITH EYES CLOSED. NO S/S OF DISTRESS OR DISCOMFORT.
[2016-11-13 04:00] VITALS: BP 107/58
--- NOTE | 2016-11-13 07:32 | NUR ---
AM ROUNDS- PT IN BED, DENIES ANY NEEDS AT THIS TIME. BED LOW AND WHEELS LOCKED, BEDRAILS X2, CALL LIGHT IN REACH, SCD TO RT LEG. NAD NOTED, WILL CONTINUE TO MONITOR.
--- NOTE | 2016-11-13 08:17 | NUR ---
AM MEDS GIVEN AT THIS TIME. PT IN BED, EATING BREAKFAST, DENIES ANY NEEDS, CALL LIGHT IN REACH, NAD NOTED, WILL CONTINUE TO MONITOR.
[2016-11-13 09:34] VITALS: BP 118/64
--- NOTE | 2016-11-13 15:09 | NUR ---
PROVIDED VERBAL AND WRITTEN DISCHARGE TEACHING TO PT AND FAMILY. BOTH VERBALIZED UNDERSTANDING REGARDING DISCHARGE. PT READY FOR WHEELCHAIR. 1510- PT LEFT UNIT VIA WHEELCHAIR, ACCOMPANIED BY FAMILY, NAD NOTED.
--- NOTE | 2016-11-15 21:36 | OP ---
PATIENT NAME: RICHELLE SANCHEZ MEDICAL RECORD: [id number] :56 LOCATION:[facility] ADMISSION DATE: SURGEON: VICTORINO DA SILVA MD DATE OF OPERATION: 11/09/2016 PREOPERATIVE DIAGNOSES: Open granulating wound on the left leg following a traumatic laceration with subsequent wound infection and necrosis, end-stage renal disease with dependence on hemodialysis, hypocoagulable state, chronic hypotension, general debility and pleural effusion secondary to congestive heart failure. POSTOPERATIVE DIAGNOSES: Open granulating wound on the left leg following a traumatic laceration with subsequent wound infection and necrosis, end-stage renal disease with dependence on hemodialysis, hypocoagulable state, chronic hypotension, general debility and pleural effusion secondary to congestive heart failure. OPERATION PERFORMED: Split thickness skin graft from anterior left thigh to granulating wound on the anterolateral left leg, middle third. SURGEON: Victorino Da Silva MD. ANESTHESIA: Local 1% lidocaine with epinephrine plus minimal IV sedation and monitoring per SUPERVISOR AIR CONDITIONING INSTALLER. REFERRING PHYSICIAN: Deana Araya MD. PREOPERATIVE NOTE: Ms. Sanchez is a 56-year-old diabetic white female with end-stage renal disease and diabetes with a host of medical problems. A couple of months ago, she fell at home and lacerated the left anterolateral leg on some cardboard and that wound was closed primarily by Emergency Room doctors and subsequently became infected. This required actual admission to the hospital for antibiotics and surgical debridement and initially, wound VAC dressings. The wound at this time is granulating, has a healthy red base, which is flat now even with the surrounding skin and appears ready for skin graft. DESCRIPTION OF PROCEDURE: Under local anesthesia with minimal MAC per SUPERVISOR AIR CONDITIONING INSTALLER, the patient was placed in supine position and prepped and draped in a sterile manner. Local anesthetic was infiltrated into the skin and subcutaneous tissues on the anterior left thigh and using a pneumatic air-driven dermatome, I harvested split thickness skin approximately 15 mils in thickness. This was meshed 1.5:1 and applied to the wound and held in position with quarter-inch Steri-Strips and Cavilon skin prep. The skin graft covered the wound at approximately 30 square cm. The wound was dressed with Versatel, layer of Adaptic and then gauze, 4 x 4s sponges moistened with Ancef/gentamicin solution and further sterile dry gauze wrap over that, all held in place with Coban, again using Cavilon skin prep. The donor site was dressed with Xeroform gauze and sterile dry gauze dressings over that and wrapped with an Timmy. She was then awakened and taken to the recovery room. Blood loss during the procedure was zero, none was replaced. All sponges, instruments and needles were accounted for. No drain was used and no surgical specimen was submitted. I did submit a swab of the granulating wound for culture and sensitivities. The patient seems to be in worsening congestive failure with pleural effusion OPERATIVE REPORT [id number] RICHELLE SANCHEZ and airspace congestion or atelectasis on her preop chest x-ray this morning. I am going to keep the patient in overnight observation. She may need possibly to be admitted if she needs to stay longer. She will probably need to have some aggressive dialysis and will be seen in consultation by pulmonology. I will plan to keep her at bed rest with the legs elevated so long as she is in the hospital and when she gets home, encouraged her to do the same, though I do not know how compliant she will be with staying off her feet. It is crucial important that the skin graft not be allowed to move or slide around on the wound and so I am stressing to her nursing personnel the need to keep the present bandage intact and keep it from getting moved around. It is pretty snug and for that reason, I have to be concerned about the swelling in her lower extremity and that is another good reason for elevating her legs. TRANSINT:[id number] Voice Confirmation ID: [id number] DOCUMENT ID: [id number] VICTORINO DA SILVA MD at 2136 CC: DEANA ARAYA MD [id number] DICTATION DATE: 11/09/16 1033 MANUFACTURING ENGINEERING INTERN: 11/09/16 1101 [facility] 11/13/16 [facility] [address] [place] [address]
== END 2016-11-13 15:10 | disposition home or self-care (01) ==
LOC: D.OPS 05:50 → D.M2 05:50 → D.PAN 08:00 → D.OPS 08:00 → D.M2 10:23 → D.OPS 11-13 15:10
PROVIDERS: Emergency Medicine; Internal Medicine Pulmonary Disease; Surgery
DX: L08.9 Local infection of the skin and subcutaneous tissue, unspecified (principal); S71.112D Laceration without foreign body, left thigh, subsequent encounter; X58.XXXD Exposure to other specified factors, subsequent encounter; E11.22 Type 2 diabetes mellitus with diabetic chronic kidney disease; I13.2 Hypertensive heart and chronic kidney disease with heart failure and with stage 5 chronic kidney disease, or end stage renal disease; I50.9 Heart failure, unspecified; N18.6 End stage renal disease; D68.59 Other primary thrombophilia; I95.89 Other hypotension; J98.11 Atelectasis; K21.9 Gastro-esophageal reflux disease without esophagitis; E11.40 Type 2 diabetes mellitus with diabetic neuropathy, unspecified; I07.1 Rheumatic tricuspid insufficiency; D63.1 Anemia in chronic kidney disease; I48.91 Unspecified atrial fibrillation

== ENCOUNTER 2016-12-22 18:33 | Emergency (ER) | payer MEDICARE ==
[2016-11-10 13:16] VITALS: BMI 26.0
[~2016-12-22 18:33] MED LIST changes: +LOVENOX40 MG/0.4 SC
[2016-12-22 21:36] LABS: BASOPHILS 0.2 % (0-2); EOSINOPHILS 0.8 % (0-7); HEMATOCRIT 33.7 % (36.0-48.0); HEMOGLOBIN 10.2 g/dL (12-16); IMMATURE GRANULOCYTES 0.5 % (0-5); LYMPHOCYTES 16.3 % (15-50); MCH 25.9 pg (26.0-34.0); MCHC 30.3 g/dL (31.0-37.0); MCV 85.5 fL (80.0-100.0); MEAN PLATELET VOLUME 11.5 fL (7.4-10.4); MONOCYTES 9.6 % (2-11); NEUTROPHILS 72.6 % (40-80); RBC 3.94 10x6/uL (4.00-5.40); RDW 15.6 % (11.5-14.5); WBC 8.4 10x3/uL (4.8-10.8)
[2016-12-22 21:53] LABS: PLATELET COUNT 162 10x3/uL (130-400)
[2016-12-22 21:57] LABS: ALBUMIN 2.8 g/dL (3.4-5.0); ALKALINE PHOSPHATASE 82 U/L (46-116); ALT (SGPT) 11 U/L (10-68); BILIRUBIN - TOTAL 0.75 mg/dL (0.2-1.3); CALC OSMOLALITY 279 mosm/kg (275-300); CALCIUM 8.7 mg/dL (8.5-10.1); CARBON DIOXIDE 29.2 mmol/L (21.0-32.0); CHLORIDE - SERUM 100 mmol/L (98-107); CREATININE - SERUM 4.1 mg/dL (0.6-1.3); GLUCOSE 137 mg/dL (74-106); POTASSIUM - SERUM 4.5 mmol/L (3.5-5.1); PROTEIN - SERUM 6.6 g/dL (6.4-8.2); SODIUM 137 mmol/L (136-145); UREA NITROGEN 24 mg/dL (7-18); eGFR NON AFRICAN AMERICAN 12 mL/min (90-120)
[2016-12-22 22:16] LABS: CREATINE KINASE 527 UL (21-215); MAGNESIUM - SERUM 1.6 mg/dL (1.8-2.4)
[2016-12-22 22:18] LABS: CKMB 2.7 U/L (0.0-3.6)
== END 2016-12-22 22:55 | disposition home or self-care (01) ==
LOC: D.ER 18:33
PROVIDERS: Emergency Medicine; Family Medicine
DX: R10.9 Unspecified abdominal pain (principal); R07.9 Chest pain, unspecified; E83.42 Hypomagnesemia; N18.6 End stage renal disease

== ENCOUNTER 2017-05-23 07:50 | Inpatient (IN) | payer MEDICARE ==
[2017-05-23] VITALS (32 sets, daily range): BP systolic 82–106; BP diastolic 36–53; BMI 25.7
[~2017-05-23] VITALS: Ht 175.3 cm; Wt 84.6 kg
--- NOTE | ~2017-05-23 | EC ---
PATIENT:RICHELLE CONNOLLY DATE OF SERVICE: 05/23/17 SEX: F MEDICAL RECORD: [id number] DATE OF : 56 LOCATION:D. D.212 AGE OF PATIENT: 56 ADMISSION DATE: 05/23/17 REFERRING PHYSICIAN: INTERPRETING PHYSICIAN: EDMOND SALMON MD ECHOCARDIOGRAM REPORT ECHO CHARGES 4 ECHO COMPLETE CLINICAL DIAGNOSIS: HYPOTENSION/ELEVATED BNP AND TROPONIN ECHOCARDIOGRAPHIC MEASUREMENTS (adult normal given) AC root (d.<3.7cm) 3.1 cm LV Septum d (<1.2 cm> 1.5 cm Valve Excursion 1.9 cm LV Septum (systole) 1.8 cm Left Atria (s.<4.0cm> 4.3 cm LVPW d(<1.2cm) 1.4 cm RV (d.<2.3cm) 4.10 cm LVPW (sytole) 1.9 cm LV diastole(<5.6CM) 4.9 cm MV E-F(>70mm/sec) cm LV systole 2.8 cm LVOT Diameter 1.8 cm MV exc.(>10mm) 1.5 cm Est.ejection fraction (50-75%) % Pericardial Effusion N DOPPLER: LVIT cm/sec A 131 cm/sec E 169 cm/sec LA 92 cm/sec RVSP 57 mmHg LVOT cm/sec AOP1/2T m/s Asc. Ao 283 cm/sec RVOT 89 cm/sec RA cm/sec PA 123 cm/sec AV Gradient Peak 32.10mmHg AV Mean 22.53mmHg AV Area 3.4 cm MV Gradient Peak 12.72mmHg MV Mean 5.04 mmHg MV Area cm COMMENTS: Braille Duplicating Machine Operator: 2 TASHA PEARCE Clean Rice Grader And Reel Tender: 4 Dr. Salmon TAPE# PACS DATE OF SERVICE: 05/24/2017 PROCEDURE: Transthoracic echocardiogram. FINDINGS: 1. This is a technically difficult procedure. Study images were difficult to visualize; however, in general the patient does have moderate concentric left ventricular hypertrophy. Inflow characteristics appear to be more pseudonormalized than normal. 2. The patient does not have any demonstrated wall motion abnormalities. ECHOCARDIOGRAM REPORT [id number] RICHELLE CONNOLLY Ejection fraction is 60%. 3. The aortic valve was well visualized and appears to be normal. 4. The left atrium has moderate to severe dilatation. 5. The mitral valve has thickened leaflets and calcification around the mitral annular area. There is a mild to moderate elevation of mitral inflow pressures. The pressure halftime is 138 milliseconds. The calculated valve area of the mitral valve is 1.5 indicating mild mitral stenosis. 6. The tricuspid valve shows moderate to severe tricuspid regurgitation. The RVSP is 55 to 60 mmHg. 7. The right ventricle is moderate to severely dilated. 8. The right atrium is moderate to severely dilated. IMPRESSION: The patient does have dilatation moderate to severe in the left atrium and on the right-sided structures also indications of hypertensive heart disease with mild mitral stenosis and pulmonary hypertension. The patient also has diastolic dysfunction. TRANSINT:[id number] Voice Confirmation ID: [id number] DOCUMENT ID: [id number] 05/26/2017 Edited to correct date of service, dm. EDMOND SALMON MD at 1111 CC: [id number] DICTATION DATE: 05/25/17 0927 MEDICAL RECORD ASSISTANT: 05/25/17 1023 [facility] IN [place] [id number] [place] [address]
[2017-05-23 08:54] LABS: BASOPHILS 0.4 % (0-2); EOSINOPHILS 0.4 % (0-7); HEMATOCRIT 44.3 % (36.0-48.0); HEMOGLOBIN 13.8 g/dL (12-16); LYMPHOCYTES 9.4 % (15-50); MCH 28.3 pg (26.0-34.0); MCHC 31.2 g/dL (31.0-37.0); MCV 90.8 fL (80.0-100.0); MONOCYTES 10.2 % (2-11); NEUTROPHILS 79.6 % (40-80); RBC 4.88 10x6/uL (4.00-5.40); RDW 15.2 % (11.5-14.5); WBC 2.6 10x3/uL (4.8-10.8)
[2017-05-23 08:56] LABS: PLATELET COUNT 108 10x3/uL (130-400)
[2017-05-23 09:02] LABS: ALBUMIN 3.2 g/dL (3.4-5.0); ALKALINE PHOSPHATASE 417 U/L (46-116); ALT (SGPT) 802 U/L (10-68); BILIRUBIN - TOTAL 2.23 mg/dL (0.2-1.3); CALC OSMOLALITY 296 mosm/kg (275-300); CALCIUM 8.4 mg/dL (8.5-10.1); CARBON DIOXIDE 27.2 mmol/L (21.0-32.0); CHLORIDE - SERUM 98 mmol/L (98-107); CREATININE - SERUM 7.8 mg/dL (0.6-1.3); GLUCOSE 98 mg/dL (74-106); PROTEIN - SERUM 6.7 g/dL (6.4-8.2); SODIUM 141 mmol/L (136-145); UREA NITROGEN 58 mg/dL (7-18); eGFR NON AFRICAN AMERICAN 6 mL/min (90-120)
[2017-05-23 09:07] LABS: CKMB 0.7 U/L (0.0-3.6); CREATINE KINASE 44 UL (21-215)
[2017-05-23 09:09] LABS: TROPONIN-I < 0.017 ng/mL (0.000-0.060)
[2017-05-23 12:14] LABS: CKMB 0.5 U/L (0.0-3.6); CREATINE KINASE 49 UL (21-215); TROPONIN-I < 0.017 ng/mL (0.000-0.060)
[2017-05-23 14:16] LABS: APTT 50.6 SECONDS (22.8-39.4); INR 3.22 (0.85-1.17); PROTIME 32.2 SECONDS (11.6-15.0)
[2017-05-23] MEDS ORDERED: COUMADIN2.5 MG PO (18:21)
[2017-05-23] MEDS ORDERED: COUMADIN5 MG PO (18:22)
[2017-05-23] MEDS ORDERED: FLUTICASONE PRO16 GM NASAL (18:22)
[2017-05-23] MEDS ORDERED: PROTONIX20 MG PO (18:23)
[2017-05-23] MEDS ORDERED: OMEPRAZOLE20 M1 PO (18:23)
[2017-05-23] MEDS ORDERED: ACETAMINOPHEN325 MG PO (18:24)
[2017-05-23] MEDS ORDERED: TESSALON PERLE100 MG PO (18:24)
[2017-05-23] MEDS ORDERED: ULTRAM50 MG PO (18:25)
[2017-05-23] MEDS ORDERED: ZOCOR40 MG PO (18:25)
[2017-05-23] MEDS ORDERED: EMLA CREAM 30 G30 G1 TOPICAL (18:27)
[2017-05-23] MEDS ORDERED: ACIDOPHILUS-PE1 EACH PO (18:28)
[2017-05-23 18:51] LABS: CKMB 2.2 U/L (0.0-3.6)
[2017-05-23 19:01] LABS: CREATINE KINASE 227 UL (21-215); TROPONIN-I 0.066 ng/mL (0.000-0.060)
[2017-05-24] VITALS (87 sets, daily range): BP systolic 75–134; BP diastolic 40–74; Ht 175.3 cm; Wt 84.6 kg
[2017-05-24 00:28] LABS: CKMB 7.4 U/L (0.0-3.6)
[2017-05-24 00:34] LABS: CREATINE KINASE 643 UL (21-215); TROPONIN-I 0.847 ng/mL (0.000-0.060)
[2017-05-24 04:13] LABS: BASOPHILS 0.1 % (0-2); EOSINOPHILS 0 % (0-7); HEMATOCRIT 35.9 % (36.0-48.0); IMMATURE GRANULOCYTES 1.4 % (0-5); LYMPHOCYTES 3.4 % (15-50); MCH 27.5 pg (26.0-34.0); MCHC 30.4 g/dL (31.0-37.0); MCV 90.7 fL (80.0-100.0); MEAN PLATELET VOLUME 13.8 fL (7.4-10.4); MONOCYTES 4.9 % (2-11); NEUTROPHILS 90.2 % (40-80); PLATELET COUNT 105 10x3/uL (130-400); RBC 3.96 10x6/uL (4.00-5.40); RDW 15.7 % (11.5-14.5)
[2017-05-24 04:36] LABS: BILIRUBIN - TOTAL 3.87 mg/dL (0.2-1.3); CALCIUM 7.6 mg/dL (8.5-10.1); CREATININE - SERUM 8.1 mg/dL (0.6-1.3); POTASSIUM - SERUM 3.1 mmol/L (3.5-5.1); PROTEIN - SERUM 5.9 g/dL (6.4-8.2)
[2017-05-24 04:38] LABS: ANION GAP 26.6 mmol/L (8-16); CARBON DIOXIDE 18.5 mmol/L (21.0-32.0)
[2017-05-24 04:41] LABS: HEMOGLOBIN 10.9 g/dL (12-16); WBC 19.5 10x3/uL (4.8-10.8)
[2017-05-25] VITALS (60 sets, daily range): BP systolic 67–106; BP diastolic 39–59
[2017-05-25 04:04] LABS: BASOPHILS 0 % (0-2); EOSINOPHILS 0 % (0-7); HEMATOCRIT 30.7 % (36.0-48.0); HEMOGLOBIN 9.7 g/dL (12-16); IMMATURE GRANULOCYTES 20.1 % (0-5); LYMPHOCYTES 4.2 % (15-50); MCH 27.6 pg (26.0-34.0); MCHC 31.6 g/dL (31.0-37.0); MONOCYTES 3.8 % (2-11); NEUTROPHILS 71.9 % (40-80); RBC 3.52 10x6/uL (4.00-5.40); RDW 15.7 % (11.5-14.5)
[2017-05-25 04:23] LABS: ANION GAP 21.4 mmol/L (8-16); CALCIUM 7.3 mg/dL (8.5-10.1); CARBON DIOXIDE 21.5 mmol/L (21.0-32.0); CREATININE - SERUM 8.9 mg/dL (0.6-1.3); PHOSPHOROUS 4.1 mg/dL (2.5-4.9); VANCOMYCIN - RANDOM 18.3 ug/mL (10.0-20.0)
[2017-05-25 04:29] LABS: POTASSIUM - SERUM 3.9 mmol/L (3.5-5.1)
[2017-05-25 04:43] LABS: MCV 87.2 fL (80.0-100.0); PLATELET COUNT 78 10x3/uL (130-400)
[2017-05-25 04:51] LABS: INR 5.63 (0.85-1.17); PROTIME 49.9 SECONDS (11.6-15.0)
[2017-05-25 05:51] LABS: PLATELET ESTIMATE DECREASED
[2017-05-26] VITALS (35 sets, daily range): BP systolic 65–93; BP diastolic 38–54
[2017-05-26 03:49] LABS: BASOPHILS 0 % (0-2); EOSINOPHILS 0.3 % (0-7); HEMATOCRIT 29.1 % (36.0-48.0); HEMOGLOBIN 9.1 g/dL (12-16); LYMPHOCYTES 6.7 % (15-50); MCH 27.1 pg (26.0-34.0); MCHC 31.3 g/dL (31.0-37.0); MCV 86.6 fL (80.0-100.0); MEAN PLATELET VOLUME 13.3 fL (7.4-10.4); MONOCYTES 1.7 % (2-11); NEUTROPHILS 90.3 % (40-80); RBC 3.36 10x6/uL (4.00-5.40); RDW 15.8 % (11.5-14.5)
[2017-05-26 03:59] LABS: PLATELET COUNT 56 10x3/uL (130-400); WBC 13.5 10x3/uL (4.8-10.8)
[2017-05-26 04:10] LABS: INR 2.88 (0.85-1.17); PROTIME 29.4 SECONDS (11.6-15.0)
[2017-05-26 04:14] LABS: ALBUMIN 2.5 g/dL (3.4-5.0); ANION GAP 23.5 mmol/L (8-16); BILIRUBIN - DIRECT 2.32 mg/dL (0.00-0.30); BILIRUBIN - INDIRECT 1.12 mg/dL (0.00-1.00); BILIRUBIN - TOTAL 3.44 mg/dL (0.2-1.3); CARBON DIOXIDE 19.9 mmol/L (21.0-32.0); CREATININE - SERUM 8.8 mg/dL (0.6-1.3); POTASSIUM - SERUM 4.4 mmol/L (3.5-5.1); PROTEIN - SERUM 5.5 g/dL (6.4-8.2); VANCOMYCIN - TROUGH 23.6 ug/mL (10.0-20.0)
[2017-05-26 04:16] LABS: PHOSPHOROUS 5.7 mg/dL (2.5-4.9)
[2017-05-26 06:40] LABS: AMYLASE - SERUM 24 U/L (25-115); LIPASE 222 U/L (73-393)
[2017-05-27] VITALS (74 sets, daily range): BP systolic 75–109; BP diastolic 44–67
[2017-05-27 03:57] LABS: BASOPHILS 0.1 % (0-2); EOSINOPHILS 1.1 % (0-7); HEMATOCRIT 32.4 % (36.0-48.0); HEMOGLOBIN 10.6 g/dL (12-16); IMMATURE GRANULOCYTES 1.5 % (0-5); LYMPHOCYTES 5.6 % (15-50); MCH 27.7 pg (26.0-34.0); MCHC 32.7 g/dL (31.0-37.0); MONOCYTES 3.8 % (2-11); NEUTROPHILS 87.9 % (40-80); PLATELET COUNT 60 10x3/uL (130-400); RBC 3.83 10x6/uL (4.00-5.40); RDW 15.2 % (11.5-14.5); WBC 16.3 10x3/uL (4.8-10.8)
[2017-05-27 04:01] LABS: MCV 84.6 fL (80.0-100.0)
[2017-05-27 06:48] LABS: MEAN PLATELET VOLUME 13.2 fL (7.4-10.4)
[2017-05-27 07:06] LABS: ANION GAP 22.5 mmol/L (8-16); CALCIUM 7.3 mg/dL (8.5-10.1); CARBON DIOXIDE 19.3 mmol/L (21.0-32.0); CREATININE - SERUM 9.3 mg/dL (0.6-1.3); PHOSPHOROUS 6.3 mg/dL (2.5-4.9); POTASSIUM - SERUM 4.8 mmol/L (3.5-5.1)
[2017-05-27 07:13] LABS: INR 1.61 (0.85-1.17); PROTIME 18.6 SECONDS (11.6-15.0)
[2017-05-28] VITALS (14 sets, daily range): BP systolic 83–116; BP diastolic 43–62
[2017-05-28 08:11] LABS: BASOPHILS 0.1 % (0-2); EOSINOPHILS 1.4 % (0-7); HEMATOCRIT 32.9 % (36.0-48.0); HEMOGLOBIN 10.6 g/dL (12-16); IMMATURE GRANULOCYTES 0.9 % (0-5); LYMPHOCYTES 6.1 % (15-50); MCH 27.5 pg (26.0-34.0); MCHC 32.2 g/dL (31.0-37.0); MCV 85.5 fL (80.0-100.0); MONOCYTES 8.2 % (2-11); NEUTROPHILS 83.3 % (40-80); PLATELET COUNT 52 10x3/uL (130-400); RBC 3.85 10x6/uL (4.00-5.40); RDW 15.1 % (11.5-14.5)
[2017-05-28 08:14] LABS: WBC 11.1 10x3/uL (4.8-10.8)
[2017-05-28 08:23] LABS: ANION GAP 16.1 mmol/L (8-16); CALCIUM 7.7 mg/dL (8.5-10.1); POTASSIUM - SERUM 4.2 mmol/L (3.5-5.1)
[2017-05-28 08:25] LABS: CARBON DIOXIDE 26.1 mmol/L (21.0-32.0); CREATININE - SERUM 6.5 mg/dL (0.6-1.3)
[2017-05-28 11:46] LABS: ALBUMIN 2.3 g/dL (3.4-5.0); BILIRUBIN - TOTAL 2.49 mg/dL (0.2-1.3); PROTEIN - SERUM 5.5 g/dL (6.4-8.2)
[2017-05-29 00:15] VITALS: BP 92/37
[2017-05-29 05:09] VITALS: BP 83/37
[2017-05-29 07:59] VITALS: BP 82/37
[2017-05-29 09:07] LABS: BASOPHILS 0.7 % (0-2); EOSINOPHILS 2.3 % (0-7); HEMATOCRIT 33.3 % (36.0-48.0); HEMOGLOBIN 10.4 g/dL (12-16); IMMATURE GRANULOCYTES 1.1 % (0-5); LYMPHOCYTES 9.8 % (15-50); MCH 27.4 pg (26.0-34.0); MCHC 31.2 g/dL (31.0-37.0); MCV 87.6 fL (80.0-100.0); MEAN PLATELET VOLUME 12.7 fL (7.4-10.4); NEUTROPHILS 80.1 % (40-80); PLATELET COUNT 87 10x3/uL (130-400); RDW 15.2 % (11.5-14.5); WBC 15.1 10x3/uL (4.8-10.8)
[2017-05-29 09:20] LABS: ANION GAP 17.8 mmol/L (8-16); CARBON DIOXIDE 24.3 mmol/L (21.0-32.0); CREATININE - SERUM 7.6 mg/dL (0.6-1.3); PHOSPHOROUS 4.2 mg/dL (2.5-4.9); POTASSIUM - SERUM 4.1 mmol/L (3.5-5.1)
[2017-05-29 11:22] VITALS: BP 96/48
[2017-05-29 15:32] VITALS: BP 101/52
[2017-05-29 20:58] VITALS: BP 98/42
[2017-05-30 01:12] VITALS: BP 99/49
[2017-05-30 05:58] VITALS: BP 97/46
[2017-05-30 06:45] LABS: BASOPHILS 0.4 % (0-2); EOSINOPHILS 1.8 % (0-7); HEMATOCRIT 34.2 % (36.0-48.0); HEMOGLOBIN 10.6 g/dL (12-16); IMMATURE GRANULOCYTES 2.3 % (0-5); LYMPHOCYTES 8.8 % (15-50); MCH 27.5 pg (26.0-34.0); MCV 88.8 fL (80.0-100.0); MEAN PLATELET VOLUME 12.8 fL (7.4-10.4); MONOCYTES 5.4 % (2-11); NEUTROPHILS 81.3 % (40-80); PLATELET COUNT 97 10x3/uL (130-400); RBC 3.85 10x6/uL (4.00-5.40); RDW 15.2 % (11.5-14.5); WBC 14.1 10x3/uL (4.8-10.8)
[2017-05-30 06:47] LABS: ANION GAP 17.5 mmol/L (8-16); CALCIUM 8.4 mg/dL (8.5-10.1); CARBON DIOXIDE 25.6 mmol/L (21.0-32.0); CREATININE - SERUM 8.3 mg/dL (0.6-1.3); POTASSIUM - SERUM 4.1 mmol/L (3.5-5.1)
[2017-05-30 07:13] LABS: INR 1.19 (0.85-1.17); PROTIME 14.7 SECONDS (11.6-15.0)
[2017-05-30 07:59] LABS: ALBUMIN 2.3 g/dL (3.4-5.0); BILIRUBIN - DIRECT 0.94 mg/dL (0.00-0.30); BILIRUBIN - INDIRECT 0.65 mg/dL (0.00-1.00); BILIRUBIN - TOTAL 1.59 mg/dL (0.2-1.3); PROTEIN - SERUM 5.1 g/dL (6.4-8.2)
[2017-05-30 08:08] VITALS: BP 99/48
[2017-05-30 15:33] VITALS: BP 88/48
[2017-05-30 20:00] VITALS: BP 113/57
[2017-05-31] VITALS: BP 98/43
[2017-05-31 04:00] VITALS: BP 100/60
[2017-05-31 07:49] LABS: HEMATOCRIT 32.4 % (36.0-48.0); HEMOGLOBIN 10.1 g/dL (12-16); LYMPHOCYTES 9.6 % (15-50); MCH 27.7 pg (26.0-34.0); MCHC 31.2 g/dL (31.0-37.0); MCV 88.8 fL (80.0-100.0); MEAN PLATELET VOLUME 11.5 fL (7.4-10.4); NEUTROPHILS 86.8 % (40-80); PLATELET COUNT 72 10x3/uL (130-400); RBC 3.65 10x6/uL (4.00-5.40); RDW 14.8 % (11.5-14.5); WBC 10.7 10x3/uL (4.8-10.8)
[2017-05-31 07:51] LABS: ANION GAP 14.9 mmol/L (8-16); CALCIUM 8.1 mg/dL (8.5-10.1); CARBON DIOXIDE 25.8 mmol/L (21.0-32.0); CREATININE - SERUM 7.3 mg/dL (0.6-1.3); POTASSIUM - SERUM 3.7 mmol/L (3.5-5.1)
[2017-05-31 09:25] VITALS: BP 121/65
[2017-05-31 11:46] VITALS: BP 105/40
[2017-05-31 12:13] LABS: ALBUMIN 2.3 g/dL (3.4-5.0); BILIRUBIN - DIRECT 0.79 mg/dL (0.00-0.30); BILIRUBIN - INDIRECT 0.56 mg/dL (0.00-1.00); BILIRUBIN - TOTAL 1.35 mg/dL (0.2-1.3)
[2017-05-31 16:11] VITALS: BP 110/54
[2017-05-31 20:00] VITALS: BP 109/48
[2017-06-01] VITALS: BP 120/56
[2017-06-01 04:00] VITALS: BP 120/55
[2017-06-01 04:51] LABS: BASOPHILS 0.1 % (0-2); EOSINOPHILS 1.3 % (0-7); HEMATOCRIT 31.8 % (36.0-48.0); HEMOGLOBIN 9.8 g/dL (12-16); IMMATURE GRANULOCYTES 2.3 % (0-5); LYMPHOCYTES 8.4 % (15-50); MCH 27.5 pg (26.0-34.0); MCHC 30.8 g/dL (31.0-37.0); MCV 89.1 fL (80.0-100.0); MONOCYTES 4.1 % (2-11); NEUTROPHILS 83.8 % (40-80); PLATELET COUNT 86 10x3/uL (130-400); RBC 3.57 10x6/uL (4.00-5.40); RDW 15.1 % (11.5-14.5); WBC 10.9 10x3/uL (4.8-10.8)
[2017-06-01 05:00] LABS: ALBUMIN 2.2 g/dL (3.4-5.0); ANION GAP 16.5 mmol/L (8-16); BILIRUBIN - TOTAL 1.29 mg/dL (0.2-1.3); CALCIUM 8.2 mg/dL (8.5-10.1); CARBON DIOXIDE 26.4 mmol/L (21.0-32.0); CREATININE - SERUM 8.1 mg/dL (0.6-1.3); POTASSIUM - SERUM 3.9 mmol/L (3.5-5.1); PROTEIN - SERUM 5.5 g/dL (6.4-8.2)
[2017-06-01 08:46] VITALS: BP 104/49
[2017-06-01 11:33] LABS: INR 2.04 (0.85-1.17); PROTIME 22.4 SECONDS (11.6-15.0)
[2017-06-01 16:00] VITALS: BP 107/44
[2017-06-01 19:00] VITALS: BP 126/52
[2017-06-02 04:00] VITALS: BP 106/45
[2017-06-02 06:03] LABS: BASOPHILS 0.1 % (0-2); EOSINOPHILS 0.8 % (0-7); HEMATOCRIT 31.7 % (36.0-48.0); HEMOGLOBIN 9.5 g/dL (12-16); IMMATURE GRANULOCYTES 2.2 % (0-5); LYMPHOCYTES 7.9 % (15-50); MCH 27.3 pg (26.0-34.0); MEAN PLATELET VOLUME 11.2 fL (7.4-10.4); MONOCYTES 3.5 % (2-11); NEUTROPHILS 85.5 % (40-80); PLATELET COUNT 77 10x3/uL (130-400); RBC 3.48 10x6/uL (4.00-5.40); RDW 15.4 % (11.5-14.5); WBC 9.2 10x3/uL (4.8-10.8)
[2017-06-02 06:25] LABS: INR 2.4 (0.85-1.17); PROTIME 25.5 SECONDS (11.6-15.0)
[2017-06-02 06:26] LABS: MCV 91.1 fL (80.0-100.0)
[2017-06-02 07:30] LABS: ALBUMIN 2.2 g/dL (3.4-5.0); ANION GAP 16.2 mmol/L (8-16); BILIRUBIN - TOTAL 1.12 mg/dL (0.2-1.3); CALCIUM 8.3 mg/dL (8.5-10.1); CARBON DIOXIDE 26.2 mmol/L (21.0-32.0); POTASSIUM - SERUM 3.4 mmol/L (3.5-5.1); PROTEIN - SERUM 5.7 g/dL (6.4-8.2)
[2017-06-02 07:33] LABS: CREATININE - SERUM 5.6 mg/dL (0.6-1.3)
[2017-06-02 07:44] VITALS: BP 125/50
[2017-06-02] MEDS ORDERED: ZOVIRAX200 MG PO (11:30)
[2017-06-02 12:13] VITALS: BP 106/56
[2017-06-02 15:17] VITALS: BP 113/48
[2017-06-02] MEDS ORDERED: NYSTATIN ORAL SU5 ML PO (16:00)
[2017-06-02 21:46] VITALS: BP 110/49
[2017-06-03 00:33] VITALS: BP 134/67
[2017-06-03 04:51] VITALS: BP 115/45
[2017-06-03 05:01] LABS: BASOPHILS 0.1 % (0-2); EOSINOPHILS 0.8 % (0-7); HEMATOCRIT 31.3 % (36.0-48.0); HEMOGLOBIN 9.4 g/dL (12-16); IMMATURE GRANULOCYTES 1.3 % (0-5); LYMPHOCYTES 11.5 % (15-50); MCV 89.9 fL (80.0-100.0); MEAN PLATELET VOLUME 10.9 fL (7.4-10.4); MONOCYTES 5.4 % (2-11); NEUTROPHILS 80.9 % (40-80); PLATELET COUNT 87 10x3/uL (130-400); RBC 3.48 10x6/uL (4.00-5.40); RDW 15.3 % (11.5-14.5)
[2017-06-03 05:22] LABS: ALBUMIN 2.2 g/dL (3.4-5.0); ANION GAP 14.8 mmol/L (8-16); BILIRUBIN - TOTAL 1.1 mg/dL (0.2-1.3); CALCIUM 8.9 mg/dL (8.5-10.1); CREATININE - SERUM 6.6 mg/dL (0.6-1.3); POTASSIUM - SERUM 3.8 mmol/L (3.5-5.1); PROTEIN - SERUM 5.6 g/dL (6.4-8.2)
[2017-06-03 07:28] VITALS: BP 135/68
== END 2017-06-03 13:27 | DRG 871 ==
LOC: D.ER 07:50 → D.ICU 11:02 → D.M2 05-28 16:14 → D.SDCHOLD 05-30 13:29 → D.M2 05-30 13:29
PROVIDERS: Emergency Medicine; Family Medicine; Internal Medicine Nephrology
PROC: 05HB33Z Insertion of Infusion Device into Right Basilic Vein, Percutaneous Approach (ICD-10-PCS; principal; 2017-05-23)
PROC: B54MZZA Ultrasonography of Right Upper Extremity Veins, Guidance (ICD-10-PCS; 2017-05-23)
PROC: 5A1D70Z Performance of Urinary Filtration, Intermittent, Less than 6 Hours Per Day (ICD-10-PCS; 2017-05-24)
DX: A41.9 Sepsis, unspecified organism (principal); R65.21 Severe sepsis with septic shock; K72.00 Acute and subacute hepatic failure without coma; N18.6 End stage renal disease; J18.9 Pneumonia, unspecified organism; G93.40 Encephalopathy, unspecified; I13.2 Hypertensive heart and chronic kidney disease with heart failure and with stage 5 chronic kidney disease, or end stage renal disease; I50.20 Unspecified systolic (congestive) heart failure; N25.81 Secondary hyperparathyroidism of renal origin; D68.59 Other primary thrombophilia; Z99.2 Dependence on renal dialysis; E83.51 Hypocalcemia; D69.6 Thrombocytopenia, unspecified

== ENCOUNTER 2017-06-05 10:31 | Inpatient (IN) | payer MEDICARE ==
[~2017-06-05] VITALS: Ht 175.3 cm; Wt 96.4 kg
--- NOTE | ~2017-06-05 | OP ---
PATIENT NAME: RICHELLE CONNOLLY MEDICAL RECORD: [id number] :56 LOCATION:.[facility] D.2305 ADMISSION DATE:06/06/17 SURGEON: LUIS F WALLER MD DATE OF OPERATION: 06/05/2017 PREOPERATIVE DIAGNOSES: 1. Hypoperfusion. 2. End-stage renal disease. 3. Inadequate peripheral IV access. POSTOPERATIVE DIAGNOSES: 1. Hypoperfusion. 2. End-stage renal disease. 3. Inadequate peripheral IV access. 4. Apparent occlusion of the right internal jugular vein. PROCEDURE: Right groin triple-lumen central venous catheter placement. SURGEON: Luis F Waller MD WAREHOUSE INSULATION WORKER: None. BLOOD LOSS: Minimal. ANESTHESIA: Local. COMPLICATIONS: None. OPERATIVE COURSE: The patient was seen emergently in the Emergency Room. The patient had external jugular line in place. The entire procedure was performed in the presence of a female nurse. The patient was positioned in the Trendelenburg position. The right neck was sterilely prepped and draped. A local anesthetic was used to infiltrate the skin and subcutaneous tissues at the base of the right neck. The right jugular vein was not accessed. I then brought the hand-held ultrasound on to the sterile field after a sterile glove had been placed over the ultrasound. This revealed that there was apparent thrombosis or occlusion or stenosis of the right internal jugular vein. I could not identify the right internal jugular vein. This approach was abandoned. Attention was then turned to the right groin. The patient was positioned in the reverse Trendelenburg position. The right groin was sterilely prepped and draped. Local anesthetic was used to infiltrate the skin and subcutaneous tissues at the right groin. Right common femoral vein was percutaneously accessed in an antegrade fashion. A guidewire passed easily. A small skin hayes was accomplished. A vessel dilator was used to dilate a subcutaneous tract. A 16 cm triple-lumen central venous catheter was inserted to the hub. It was sutured in place times 3. All lumens flushed easily and aspirated dark, nonpulsatile blood. A portable chest x-ray is pending to rule out. A sterile dressing was applied. TRANSINT:[id number] Voice Confirmation ID: [id number] DOCUMENT ID: [id number] OPERATIVE REPORT [id number] RICHELLE CONNOLLY ROBERT MD at 1019 CC: [id number] DICTATION DATE: 06/05/17 175 MATERIAL CARRIER: 06/05/17 1858 ADM IN [place] [id number] [place] [id number]
--- NOTE | ~2017-06-05 | CN ---
PATIENT NAME:RICHELLE SANCHEZ MEDICAL RECORD: [id number] : 56 LOCATION:[facility].2305 ADMIT DATE: 06/06/17 ACCOUNT: [id number] CONSULTING PHYSICIAN: GILBERT BERMUDEZ MD REFERRING PHYSICIAN: BALDEMAR WHITAKER MD DATE OF CONSULTATION: 06/08/2017 Cardiology Consult DIAGNOSES: 1. Possible endocarditis. 2. Abnormality aortic valve on echo. 3. Recent septic shock. 4. End-stage renal failure, on dialysis. 5. Anemia. 6. Gastrointestinal bleed. 7. Hyperlipidemia. 8. Recent shock liver. HISTORY OF PRESENT ILLNESS: Ms. Sanchez presents after a prolonged hospital stay for a septic shock with significant severe anemia and hypotension and has been treated for that. She has an abnormality on echocardiogram of the aortic valve, possibly consistent with endocarditis. We are now asked for further evaluation. PHYSICAL EXAMINATION: GENERAL APPEARANCE: Well-nourished, well-developed, appears stated age. Level of distress, comfortable. PSYCHIATRIC: Mental status, alert, normal affect. Orientation, oriented to time, place and person. EYES: Lids and conjunctiva, noninjected. No discharge, no pallor. ENT: Lips, teeth, gums, normal dentition. Oropharynx, no cyanosis, no pallor. NECK: Carotid arteries, bilateral normal upstroke, no bruits, no thrills. JUGULAR VEINS: No jugular venous pressure or distention. CERVICAL LYMPH NODES: Nontender, nonenlarged. THYROID: Not enlarged. Nontender. No nodules. LUNGS: Respiratory effort, unlabored. CHEST: Normal curvature. No thoracic deformity. No chest wall tenderness. Percussion, resonant. Auscultation, clear. No wheezes, no rales, no rhonchi. CARDIOVASCULAR: Precordial exam, nondisplaced. No heaves or pericardial thrills. Rate and rhythm, regular. Heart sounds, normal S1, normal S2. No S3, no gallop, no rub. Systolic murmur, not heard. Diastolic murmur, not heard. EXTREMITIES: No cyanosis, no edema. Peripheral pulses, full and equal in all extremities, except as noted. No bruits appreciated. ABDOMEN: Soft, nondistended. Normal aorta. No bruit. Nontender. No masses. Liver, nontender, no hepatomegaly. Spleen, nontender, no splenomegaly. MUSCULOSKELETAL: No joint tenderness. No joint swelling. No erythema. NEUROLOGICAL: Normal gait, normal strength, normal tone. SKIN: Warm and dry. OVERALL IMPRESSION: Possible endocarditis. We will proceed with transesophageal echocardiogram. The patient is intubated. We will do this while she is intubated. Further care depends upon findings of the echo. TRANSINT:[id number] Voice Confirmation ID: [id number] DOCUMENT ID: [id number] CONSULT REPORT [id number] RICHELLE SANCHEZ, GILBERT BENNETT at 0910 CC: [id number] DICTATION DATE: 06/08/17 1159 PLUG DRILL OPERATOR: 06/08/17 1244 ADM IN [facility] [address] [place] [address]
--- NOTE | ~2017-06-05 | TEE ---
PATIENT:RICHELLE CONNOLLY MEDICAL RECORD: [id number] LOCATION:[facility] D.230 AGE OF PATIENT: 56 ADMISSION DATE: 06/06/17 SEX: F REFERRING PHYSICIAN: INTERPRETING PHYSICIAN: GILBERT ADEN MD TRANSESOPHAGEAL ECHOCARDIOGRAM MONI CHARGE Y INDICATIONS: R/O VEGETATIONS PREMEDICATIONS: PATIENT'S RESPONSE PROCEDURE DOPPLER MEASUREMENTS: LVIT LA PA RA LVOT RVOT Asc. Ao AV Gradient Peak AV Mean AV Area MV Gradient Peak MV Mean MV Area INTERPRETATION: Doppler: 2-D: COLOR FLOW DOPPLER NORMAL SALINE STUDY: MISCELLANOUS: DIAGNOSIS: PLAN: Certified Nutritionist:1 Dr. Aden Seater Grinder: Jovana CONTE COMMENTS: DATE OF SERVICE: 06/08/2017 DATE OF SERVICE: 06/08/2017 Transesophageal echo evaluation of valvular structures for possible endocarditis. FINDINGS: 1. Left ventricular chamber size is within normal limits. Left ventricular TRANSESOPHAGEAL ECHOCARDIOGRAM REPORT [id number] RICHELLE CONNOLLY systolic function is normal. Overall ejection fraction is estimated at 60%. 2. Left atrium, right atrium and right ventricular chamber sizes are within normal limits. 3. Valvular structures: Aortic valve has mild calcification, no vegetations. No evidence of endocarditis. The mitral valve has moderate calcification, no vegetations, no evidence of endocarditis. 4. Tricuspid valve is structurally normal. OVERALL IMPRESSION: No evidence of vegetative endocarditis. TRANSINT:[id number] Voice Confirmation ID: [id number] DOCUMENT ID: [id number] at 1153 CC: [id number] DICTATION DATE: 06/08/17 1324 WASTEWATER TREATMENT PLANT SUPERVISOR: 06/09/17 0935 ADM IN [place] [id number]
[~2017-06-05 10:31] MED LIST changes: +ACETAMINOPHEN325 MG PO; +ACIDOPHILUS-PE1 EACH PO; +EMLA CREAM 30 G30 G1 TOPICAL; +FLUTICASONE PRO16 GM NASAL; +NYSTATIN ORAL SU5 ML PO; +OMEPRAZOLE20 M1 PO; +PROTONIX20 MG PO; +ZOCOR40 MG PO; +ZOVIRAX200 MG PO
[2017-06-05 12:28] LABS: BASOPHILS 0.2 % (0-2); EOSINOPHILS 0.3 % (0-7); IMMATURE GRANULOCYTES 0.5 % (0-5); LYMPHOCYTES 13.2 % (15-50); MCH 27.1 pg (26.0-34.0); MCHC 30.3 g/dL (31.0-37.0); MCV 89.4 fL (80.0-100.0); MEAN PLATELET VOLUME 11.6 fL (7.4-10.4); MONOCYTES 7.3 % (2-11); NEUTROPHILS 78.5 % (40-80); PLATELET COUNT 95 10x3/uL (130-400); RDW 15.2 % (11.5-14.5); WBC 9.5 10x3/uL (4.8-10.8)
[2017-06-05 12:45] LABS: APTT 63.7 SECONDS (22.8-39.4); INR 3.33 (0.85-1.17)
[2017-06-05 12:47] LABS: RBC 1.99 10x6/uL (4.00-5.40)
[2017-06-05 12:48] LABS: HEMATOCRIT 17.8 % (36.0-48.0); HEMOGLOBIN 5.4 g/dL (12-16)
[2017-06-05 13:03] LABS: ALBUMIN 2.1 g/dL (3.4-5.0); ALKALINE PHOSPHATASE 107 U/L (46-116); ALT (SGPT) 10 U/L (10-68); BILIRUBIN - TOTAL 1.04 mg/dL (0.2-1.3); CALC OSMOLALITY 293 mosm/kg (275-300); CALCIUM 7.9 mg/dL (8.5-10.1); CARBON DIOXIDE 24.3 mmol/L (21.0-32.0); CHLORIDE - SERUM 99 mmol/L (98-107); CREATININE - SERUM 7.9 mg/dL (0.6-1.3); GLUCOSE 114 mg/dL (74-106); PROTEIN - SERUM 5.2 g/dL (6.4-8.2); SODIUM 136 mmol/L (136-145); UREA NITROGEN 70 mg/dL (7-18); eGFR NON AFRICAN AMERICAN 6 mL/min (90-120)
[2017-06-05 13:22] LABS: CKMB 1.3 U/L (0.0-3.6); CREATINE KINASE 58 UL (21-215)
[2017-06-05 13:26] LABS: TROPONIN-I 0.065 ng/mL (0.000-0.060)
[2017-06-05 15:12] LABS: HEMATOCRIT 20.7 % (36.0-48.0)
[2017-06-05 15:17] LABS: HEMOGLOBIN 6.4 g/dL (12-16)
[2017-06-05 19:39] LABS: BASOPHILS 0.1 % (0-2); EOSINOPHILS 0.1 % (0-7); HEMATOCRIT 24.4 % (36.0-48.0); IMMATURE GRANULOCYTES 0.5 % (0-5); LYMPHOCYTES 9.7 % (15-50); MCH 27.3 pg (26.0-34.0); MCHC 31.6 g/dL (31.0-37.0); MEAN PLATELET VOLUME 11.3 fL (7.4-10.4); MONOCYTES 6.2 % (2-11); NEUTROPHILS 83.4 % (40-80)
[2017-06-05 19:40] LABS: HEMOGLOBIN 7.7 g/dL (12-16); MCV 86.5 fL (80.0-100.0); PLATELET COUNT 130 10x3/uL (130-400); RBC 2.82 10x6/uL (4.00-5.40); WBC 14.6 10x3/uL (4.8-10.8)
[2017-06-05 19:50] LABS: APTT 57.6 SECONDS (22.8-39.4); INR 2.1 (0.85-1.17)
[2017-06-05 19:51] LABS: ANION GAP 17.1 mmol/L (8-16); CALCIUM 7.9 mg/dL (8.5-10.1); CARBON DIOXIDE 24.1 mmol/L (21.0-32.0); CREATININE - SERUM 7.8 mg/dL (0.6-1.3); MAGNESIUM - SERUM 2.4 mg/dL (1.8-2.4); PHOSPHOROUS 6.1 mg/dL (2.5-4.9); POTASSIUM - SERUM 4.2 mmol/L (3.5-5.1)
[2017-06-06] VITALS (74 sets, daily range): BP systolic 72–116; BP diastolic 40–71; BMI 27.0; BMI 30.6
[2017-06-06 00:29] LABS: HEMOGLOBIN 8.5 g/dL (12-16)
[2017-06-06 06:07] LABS: BASOPHILS 0.1 % (0-2); EOSINOPHILS 0.1 % (0-7); HEMATOCRIT 22.8 % (36.0-48.0); HEMOGLOBIN 7.6 g/dL (12-16); IMMATURE GRANULOCYTES 0.6 % (0-5); LYMPHOCYTES 6.3 % (15-50); MCH 28.6 pg (26.0-34.0); MCHC 33.3 g/dL (31.0-37.0); MCV 85.7 fL (80.0-100.0); MEAN PLATELET VOLUME 10.3 fL (7.4-10.4); MONOCYTES 6.1 % (2-11); NEUTROPHILS 86.8 % (40-80); PLATELET COUNT 185 10x3/uL (130-400); RBC 2.66 10x6/uL (4.00-5.40); RDW 15.1 % (11.5-14.5); WBC 15.1 10x3/uL (4.8-10.8)
[2017-06-06 06:18] LABS: INR 1.96 (0.85-1.17); PROTIME 21.8 SECONDS (11.6-15.0)
[2017-06-06 06:31] LABS: ALBUMIN 2.3 g/dL (3.4-5.0); ANION GAP 17.9 mmol/L (8-16); BILIRUBIN - TOTAL 1.44 mg/dL (0.2-1.3); CALCIUM 7.7 mg/dL (8.5-10.1); CARBON DIOXIDE 25.8 mmol/L (21.0-32.0); CREATININE - SERUM 7.8 mg/dL (0.6-1.3); POTASSIUM - SERUM 4.7 mmol/L (3.5-5.1); PROTEIN - SERUM 5.7 g/dL (6.4-8.2); THYROID STIMULATING HORMONE 1.94 uIU/mL (0.36-3.74)
[2017-06-06] MEDS ORDERED: ACETAMINOPHEN325 MG PO (10:38)
[2017-06-06] MEDS ORDERED: CALCIUM 600+D T1 TA1 PO (10:42)
[2017-06-06] MEDS ORDERED: HYDROCODON-ACE1 EAC7 PO (10:44)
[2017-06-06 14:56] LABS: HEMATOCRIT 22.9 % (36.0-48.0); HEMOGLOBIN 7.7 g/dL (12-16)
[2017-06-06 22:01] LABS: PROTIME 17.8 SECONDS (11.6-15.0)
[2017-06-06 22:02] LABS: INR 1.52 (0.85-1.17)
[2017-06-06 23:18] LABS: HEMATOCRIT 23.7 % (36.0-48.0); HEMOGLOBIN 7.9 g/dL (12-16)
[2017-06-07] VITALS (95 sets, daily range): BP systolic 76–134; BP diastolic 28–97
[2017-06-07 05:54] LABS: HEMATOCRIT 26.8 % (36.0-48.0); HEMOGLOBIN 8.9 g/dL (12-16); MCHC 33.2 g/dL (31.0-37.0); MCV 84.3 fL (80.0-100.0); MEAN PLATELET VOLUME 10.6 fL (7.4-10.4); PLATELET COUNT 188 10x3/uL (130-400); RBC 3.18 10x6/uL (4.00-5.40); RDW 15.8 % (11.5-14.5); WBC 23.4 10x3/uL (4.8-10.8)
[2017-06-07 06:04] LABS: INR 1.38 (0.85-1.17); PROTIME 16.5 SECONDS (11.6-15.0)
[2017-06-07 06:24] LABS: LYMPHOCYTES 6 % (15-50); MONOCYTES 9 % (2-11); NEUTROPHILS 81 % (40-80); PLATELET ESTIMATE NORMAL
[2017-06-07 06:27] LABS: ALBUMIN 2.1 g/dL (3.4-5.0); ANION GAP 21.1 mmol/L (8-16); BILIRUBIN - TOTAL 1.3 mg/dL (0.2-1.3); CARBON DIOXIDE 22.3 mmol/L (21.0-32.0); CREATININE - SERUM 8.1 mg/dL (0.6-1.3); POTASSIUM - SERUM 5.4 mmol/L (3.5-5.1); PROTEIN - SERUM 5.4 g/dL (6.4-8.2)
[2017-06-07 14:34] LABS: HEMATOCRIT 25.1 % (36.0-48.0); HEMOGLOBIN 8.5 g/dL (12-16)
[2017-06-07 23:14] LABS: HEMATOCRIT 26.1 % (36.0-48.0); HEMOGLOBIN 8.7 g/dL (12-16)
[2017-06-08] VITALS (95 sets, daily range): BP systolic 84–126; BP diastolic 39–85
[2017-06-08 05:15] LABS: HEMATOCRIT 24.8 % (36.0-48.0); HEMOGLOBIN 8.4 g/dL (12-16)
[2017-06-08 09:09] LABS: BASOPHILS 0 % (0-2); EOSINOPHILS 0 % (0-7); HEMATOCRIT 25.2 % (36.0-48.0); HEMOGLOBIN 8.4 g/dL (12-16); IMMATURE GRANULOCYTES 0.5 % (0-5); LYMPHOCYTES 3.3 % (15-50); MCH 28.4 pg (26.0-34.0); MCHC 33.3 g/dL (31.0-37.0); MCV 85.1 fL (80.0-100.0); MEAN PLATELET VOLUME 10.2 fL (7.4-10.4); MONOCYTES 3.4 % (2-11); NEUTROPHILS 92.8 % (40-80); PLATELET COUNT 205 10x3/uL (130-400); RBC 2.96 10x6/uL (4.00-5.40); RDW 15.6 % (11.5-14.5); WBC 25.3 10x3/uL (4.8-10.8)
[2017-06-08 09:12] LABS: INR 1.29 (0.85-1.17); PROTIME 15.6 SECONDS (11.6-15.0)
[2017-06-08 09:20] LABS: ALBUMIN 2.3 g/dL (3.4-5.0); ANION GAP 21.8 mmol/L (8-16); BILIRUBIN - TOTAL 1.6 mg/dL (0.2-1.3); CREATININE - SERUM 8.8 mg/dL (0.6-1.3); POTASSIUM - SERUM 5.8 mmol/L (3.5-5.1)
[2017-06-08 09:22] LABS: CALCIUM 6.8 mg/dL (8.5-10.1)
[2017-06-08 14:45] LABS: HEMATOCRIT 27.1 % (36.0-48.0); HEMOGLOBIN 9.1 g/dL (12-16)
[2017-06-08 19:21] LABS: MACROPHAGES BF 5 %; MESOTHELIALS BF 3 %; NEUT - BF 86 %
[2017-06-08 22:08] LABS: HEMATOCRIT 24.9 % (36.0-48.0); HEMOGLOBIN 8.3 g/dL (12-16)
[2017-06-09] VITALS (70 sets, daily range): BP systolic 78–125; BP diastolic 46–79
[2017-06-09 05:10] LABS: BASOPHILS 0.1 % (0-2); EOSINOPHILS 0.3 % (0-7); HEMATOCRIT 28.4 % (36.0-48.0); HEMOGLOBIN 9.6 g/dL (12-16); IMMATURE GRANULOCYTES 0.2 % (0-5); LYMPHOCYTES 6.1 % (15-50); MCHC 33.8 g/dL (31.0-37.0); MCV 85.8 fL (80.0-100.0); MEAN PLATELET VOLUME 10.1 fL (7.4-10.4); MONOCYTES 6.6 % (2-11); NEUTROPHILS 86.7 % (40-80); PLATELET COUNT 188 10x3/uL (130-400); RBC 3.31 10x6/uL (4.00-5.40); RDW 15.5 % (11.5-14.5)
[2017-06-09 05:33] LABS: WBC 12.4 10x3/uL (4.8-10.8)
[2017-06-09 05:36] LABS: INR 1.26 (0.85-1.17); PROTIME 15.4 SECONDS (11.6-15.0)
[2017-06-09 05:48] LABS: ANION GAP 19.2 mmol/L (8-16); BILIRUBIN - TOTAL 2.55 mg/dL (0.2-1.3); CALCIUM 7.2 mg/dL (8.5-10.1); CARBON DIOXIDE 22.5 mmol/L (21.0-32.0); CREATININE - SERUM 6.9 mg/dL (0.6-1.3); PROTEIN - SERUM 5.6 g/dL (6.4-8.2); VANCOMYCIN - RANDOM 29.1 ug/mL (10.0-20.0)
[2017-06-09 05:49] LABS: POTASSIUM - SERUM 4.7 mmol/L (3.5-5.1)
[2017-06-09 06:40] LABS: BILIRUBIN - DIRECT 1.2 mg/dL (0.00-0.30); BILIRUBIN - INDIRECT 1.35 mg/dL (0.00-1.00)
[2017-06-09 14:17] LABS: HEMOGLOBIN 9.7 g/dL (12-16)
[2017-06-09 17:12] LABS: AFB SPECIMEN PROCESSING Concentration (())
[2017-06-09 23:20] LABS: HEMATOCRIT 29.2 % (36.0-48.0); HEMOGLOBIN 9.6 g/dL (12-16)
[2017-06-10] VITALS (93 sets, daily range): BP systolic 87–121; BP diastolic 53–91
[2017-06-10 04:58] LABS: BASOPHILS 0.1 % (0-2); EOSINOPHILS 0.7 % (0-7); HEMATOCRIT 29.6 % (36.0-48.0); HEMOGLOBIN 9.6 g/dL (12-16); IMMATURE GRANULOCYTES 0.4 % (0-5); LYMPHOCYTES 7.9 % (15-50); MCH 28.5 pg (26.0-34.0); MCHC 32.4 g/dL (31.0-37.0); MEAN PLATELET VOLUME 10.2 fL (7.4-10.4); MONOCYTES 6.4 % (2-11); NEUTROPHILS 84.5 % (40-80); PLATELET COUNT 175 10x3/uL (130-400); RBC 3.37 10x6/uL (4.00-5.40); RDW 16.3 % (11.5-14.5)
[2017-06-10 05:03] LABS: MCV 87.8 fL (80.0-100.0); WBC 8.1 10x3/uL (4.8-10.8)
[2017-06-10 05:26] LABS: ANION GAP 17.7 mmol/L (8-16); BILIRUBIN - TOTAL 2.47 mg/dL (0.2-1.3); CALCIUM 7.6 mg/dL (8.5-10.1); CARBON DIOXIDE 24.4 mmol/L (21.0-32.0); POTASSIUM - SERUM 4.1 mmol/L (3.5-5.1); PROTEIN - SERUM 5.7 g/dL (6.4-8.2); VANCOMYCIN - RANDOM 20.6 ug/mL (10.0-20.0)
[2017-06-10 10:19] LABS: FUNGUS STAIN Final report (())
[2017-06-10 15:31] LABS: HEMATOCRIT 29.2 % (36.0-48.0); HEMOGLOBIN 9.5 g/dL (12-16)
[2017-06-10 22:42] LABS: HEMATOCRIT 30.5 % (36.0-48.0)
[2017-06-11] VITALS (94 sets, daily range): BP systolic 82–129; BP diastolic 40–500
[2017-06-11 09:46] LABS: BASOPHILS 0.1 % (0-2); EOSINOPHILS 1.7 % (0-7); HEMOGLOBIN 9.6 g/dL (12-16); IMMATURE GRANULOCYTES 0.4 % (0-5); MCH 28.9 pg (26.0-34.0); MONOCYTES 6.4 % (2-11); NEUTROPHILS 85.4 % (40-80); PLATELET COUNT 163 10x3/uL (130-400); RBC 3.32 10x6/uL (4.00-5.40); RDW 16.9 % (11.5-14.5); WBC 7.5 10x3/uL (4.8-10.8)
[2017-06-11 09:53] LABS: MCV 90.4 fL (80.0-100.0)
[2017-06-11 10:06] LABS: ALBUMIN 1.9 g/dL (3.4-5.0); ANION GAP 15.2 mmol/L (8-16); BILIRUBIN - TOTAL 2.03 mg/dL (0.2-1.3); CALCIUM 8.1 mg/dL (8.5-10.1); CARBON DIOXIDE 26.3 mmol/L (21.0-32.0); POTASSIUM - SERUM 3.5 mmol/L (3.5-5.1); PROTEIN - SERUM 5.6 g/dL (6.4-8.2); VANCOMYCIN - RANDOM 26.4 ug/mL (10.0-20.0)
[2017-06-11 16:31] LABS: HEMATOCRIT 31.6 % (36.0-48.0); HEMOGLOBIN 10.1 g/dL (12-16)
[2017-06-12] VITALS (92 sets, daily range): BP systolic 77–124; BP diastolic 39–77
[2017-06-12 04:48] LABS: BASOPHILS 0.3 % (0-2); EOSINOPHILS 2.5 % (0-7); HEMOGLOBIN 9.8 g/dL (12-16); IMMATURE GRANULOCYTES 0.6 % (0-5); LYMPHOCYTES 7.2 % (15-50); MCH 28.7 pg (26.0-34.0); MCHC 31.6 g/dL (31.0-37.0); MCV 90.9 fL (80.0-100.0); MEAN PLATELET VOLUME 9.8 fL (7.4-10.4); MONOCYTES 7.9 % (2-11); NEUTROPHILS 81.5 % (40-80); PLATELET COUNT 155 10x3/uL (130-400); RBC 3.41 10x6/uL (4.00-5.40); RDW 17.5 % (11.5-14.5); WBC 6.8 10x3/uL (4.8-10.8)
[2017-06-12 05:01] LABS: ALBUMIN 1.8 g/dL (3.4-5.0); ANION GAP 14.9 mmol/L (8-16); BILIRUBIN - TOTAL 1.6 mg/dL (0.2-1.3); CALCIUM 7.7 mg/dL (8.5-10.1); CARBON DIOXIDE 27.4 mmol/L (21.0-32.0); CREATININE - SERUM 3.2 mg/dL (0.6-1.3); POTASSIUM - SERUM 3.3 mmol/L (3.5-5.1); PROTEIN - SERUM 5.6 g/dL (6.4-8.2); VANCOMYCIN - RANDOM 20.6 ug/mL (10.0-20.0)
[2017-06-13] VITALS (78 sets, daily range): BP systolic 65–1109; BP diastolic 45–263; Ht 175.3 cm; Wt 96.4 kg
[2017-06-13 04:18] LABS: BASOPHILS 0.3 % (0-2); EOSINOPHILS 4.2 % (0-7); HEMATOCRIT 29.3 % (36.0-48.0); HEMOGLOBIN 9.1 g/dL (12-16); IMMATURE GRANULOCYTES 0.5 % (0-5); LYMPHOCYTES 9.9 % (15-50); MCH 28.2 pg (26.0-34.0); MCHC 31.1 g/dL (31.0-37.0); MCV 90.7 fL (80.0-100.0); MEAN PLATELET VOLUME 10.1 fL (7.4-10.4); MONOCYTES 8.5 % (2-11); NEUTROPHILS 76.6 % (40-80); PLATELET COUNT 164 10x3/uL (130-400); RBC 3.23 10x6/uL (4.00-5.40); RDW 17.7 % (11.5-14.5); WBC 6.5 10x3/uL (4.8-10.8)
[2017-06-13 04:33] LABS: ALBUMIN 1.7 g/dL (3.4-5.0); BILIRUBIN - TOTAL 1.38 mg/dL (0.2-1.3); CALCIUM 8.1 mg/dL (8.5-10.1); CARBON DIOXIDE 27.4 mmol/L (21.0-32.0); PROTEIN - SERUM 5.4 g/dL (6.4-8.2)
[2017-06-13 04:35] LABS: ANION GAP 12.5 mmol/L (8-16); POTASSIUM - SERUM 3.9 mmol/L (3.5-5.1)
[2017-06-14] VITALS (76 sets, daily range): BP systolic 81–120; BP diastolic 42–67
[2017-06-14 04:54] LABS: BASOPHILS 0.2 % (0-2); EOSINOPHILS 1.5 % (0-7); HEMATOCRIT 31.7 % (36.0-48.0); HEMOGLOBIN 9.9 g/dL (12-16); IMMATURE GRANULOCYTES 1.2 % (0-5); LYMPHOCYTES 8.4 % (15-50); MCH 28.8 pg (26.0-34.0); MCHC 31.2 g/dL (31.0-37.0); MCV 92.2 fL (80.0-100.0); MEAN PLATELET VOLUME 10.1 fL (7.4-10.4); MONOCYTES 9.8 % (2-11); NEUTROPHILS 78.9 % (40-80); PLATELET COUNT 188 10x3/uL (130-400); RBC 3.44 10x6/uL (4.00-5.40); RDW 18.5 % (11.5-14.5); WBC 5.8 10x3/uL (4.8-10.8)
[2017-06-14 05:15] LABS: ALBUMIN 1.9 g/dL (3.4-5.0); BILIRUBIN - TOTAL 1.33 mg/dL (0.2-1.3); CALCIUM 8.4 mg/dL (8.5-10.1); CARBON DIOXIDE 27.3 mmol/L (21.0-32.0); CREATININE - SERUM 3.2 mg/dL (0.6-1.3); PROTEIN - SERUM 5.8 g/dL (6.4-8.2); VANCOMYCIN - RANDOM 20.3 ug/mL (10.0-20.0)
[2017-06-14 05:16] LABS: POTASSIUM - SERUM 3.3 mmol/L (3.5-5.1)
[2017-06-15] VITALS (26 sets, daily range): BP systolic 86–117; BP diastolic 42–61
[2017-06-15 07:27] LABS: BASOPHILS 0.4 % (0-2); EOSINOPHILS 2.9 % (0-7); HEMATOCRIT 29.6 % (36.0-48.0); HEMOGLOBIN 8.9 g/dL (12-16); IMMATURE GRANULOCYTES 1.3 % (0-5); LYMPHOCYTES 10.9 % (15-50); MCH 28.6 pg (26.0-34.0); MCHC 30.1 g/dL (31.0-37.0); MEAN PLATELET VOLUME 10.8 fL (7.4-10.4); MONOCYTES 9.7 % (2-11); NEUTROPHILS 74.8 % (40-80); PLATELET COUNT 203 10x3/uL (130-400); RBC 3.11 10x6/uL (4.00-5.40); WBC 5.5 10x3/uL (4.8-10.8)
[2017-06-15 07:48] LABS: ALBUMIN 1.9 g/dL (3.4-5.0); BILIRUBIN - TOTAL 1.3 mg/dL (0.2-1.3); CALCIUM 7.5 mg/dL (8.5-10.1); CARBON DIOXIDE 27.3 mmol/L (21.0-32.0); CREATININE - SERUM 2.8 mg/dL (0.6-1.3); PROTEIN - SERUM 5.1 g/dL (6.4-8.2)
[2017-06-15 07:50] LABS: MCV 95.2 fL (80.0-100.0)
[2017-06-15 07:54] LABS: ANION GAP 13.5 mmol/L (8-16); POTASSIUM - SERUM 3.8 mmol/L (3.5-5.1)
[2017-06-16] VITALS (25 sets, daily range): BP systolic 77–114; BP diastolic 42–70
[2017-06-16 05:44] LABS: BASOPHILS 0.3 % (0-2); EOSINOPHILS 2.2 % (0-7); HEMATOCRIT 32.1 % (36.0-48.0); HEMOGLOBIN 9.5 g/dL (12-16); IMMATURE GRANULOCYTES 1.5 % (0-5); LYMPHOCYTES 10.6 % (15-50); MCH 28.4 pg (26.0-34.0); MCHC 29.6 g/dL (31.0-37.0); MCV 96.1 fL (80.0-100.0); MEAN PLATELET VOLUME 10.2 fL (7.4-10.4); MONOCYTES 9.4 % (2-11); PLATELET COUNT 217 10x3/uL (130-400); RBC 3.34 10x6/uL (4.00-5.40); WBC 6.8 10x3/uL (4.8-10.8)
[2017-06-16 06:15] LABS: ALBUMIN 1.9 g/dL (3.4-5.0); ANION GAP 11.6 mmol/L (8-16); BILIRUBIN - TOTAL 1.4 mg/dL (0.2-1.3); CALCIUM 7.7 mg/dL (8.5-10.1); CARBON DIOXIDE 29.9 mmol/L (21.0-32.0); CREATININE - SERUM 2.6 mg/dL (0.6-1.3); MAGNESIUM - SERUM 1.9 mg/dL (1.8-2.4); POTASSIUM - SERUM 3.5 mmol/L (3.5-5.1); VANCOMYCIN - RANDOM 14.3 ug/mL (10.0-20.0)
[2017-06-17] VITALS (26 sets, daily range): BP systolic 91–130; BP diastolic 51–101
[2017-06-17 03:13] LABS: BASOPHILS 0.4 % (0-2); EOSINOPHILS 2.2 % (0-7); HEMATOCRIT 32.3 % (36.0-48.0); HEMOGLOBIN 9.7 g/dL (12-16); IMMATURE GRANULOCYTES 1.2 % (0-5); LYMPHOCYTES 9.1 % (15-50); MCV 96.4 fL (80.0-100.0); MEAN PLATELET VOLUME 9.8 fL (7.4-10.4); MONOCYTES 9.2 % (2-11); NEUTROPHILS 77.9 % (40-80); PLATELET COUNT 235 10x3/uL (130-400); RBC 3.35 10x6/uL (4.00-5.40); RDW 19.7 % (11.5-14.5); WBC 7.7 10x3/uL (4.8-10.8)
[2017-06-17 03:22] LABS: ALBUMIN 1.9 g/dL (3.4-5.0); ANION GAP 9.7 mmol/L (8-16); BILIRUBIN - TOTAL 1.39 mg/dL (0.2-1.3); CALCIUM 8.4 mg/dL (8.5-10.1); CARBON DIOXIDE 31.6 mmol/L (21.0-32.0); CREATININE - SERUM 2.4 mg/dL (0.6-1.3); MAGNESIUM - SERUM 1.9 mg/dL (1.8-2.4); POTASSIUM - SERUM 3.3 mmol/L (3.5-5.1); PROTEIN - SERUM 5.6 g/dL (6.4-8.2); VANCOMYCIN - RANDOM 25.4 ug/mL (10.0-20.0)
[2017-06-17 10:21] LABS: VIRAL - RESULT No virus isolated. (())
[2017-06-18] VITALS (24 sets, daily range): BP systolic 100–137; BP diastolic 52–74
[2017-06-18 04:37] LABS: BASOPHILS 0.2 % (0-2); EOSINOPHILS 1.4 % (0-7); HEMOGLOBIN 9.5 g/dL (12-16); IMMATURE GRANULOCYTES 0.7 % (0-5); LYMPHOCYTES 10.9 % (15-50); MCH 28.8 pg (26.0-34.0); MCHC 29.7 g/dL (31.0-37.0); MEAN PLATELET VOLUME 10.2 fL (7.4-10.4); MONOCYTES 8.9 % (2-11); NEUTROPHILS 77.9 % (40-80); PLATELET COUNT 234 10x3/uL (130-400); RDW 20.2 % (11.5-14.5); WBC 8.4 10x3/uL (4.8-10.8)
[2017-06-18 05:00] LABS: ALBUMIN 1.9 g/dL (3.4-5.0); ANION GAP 7.9 mmol/L (8-16); BILIRUBIN - TOTAL 1.44 mg/dL (0.2-1.3); CALCIUM 8.7 mg/dL (8.5-10.1); CARBON DIOXIDE 31.5 mmol/L (21.0-32.0); CREATININE - SERUM 2.5 mg/dL (0.6-1.3); MAGNESIUM - SERUM 2.1 mg/dL (1.8-2.4); POTASSIUM - SERUM 3.4 mmol/L (3.5-5.1); PROTEIN - SERUM 5.7 g/dL (6.4-8.2); VANCOMYCIN - RANDOM 27.6 ug/mL (10.0-20.0)
[2017-06-19] VITALS (24 sets, daily range): BP systolic 104–143; BP diastolic 52–95
[2017-06-19 05:37] LABS: BASOPHILS 0.2 % (0-2); EOSINOPHILS 1.6 % (0-7); HEMATOCRIT 30.2 % (36.0-48.0); HEMOGLOBIN 9.4 g/dL (12-16); IMMATURE GRANULOCYTES 0.8 % (0-5); LYMPHOCYTES 12.5 % (15-50); MCH 28.5 pg (26.0-34.0); MCHC 31.1 g/dL (31.0-37.0); MEAN PLATELET VOLUME 10.6 fL (7.4-10.4); MONOCYTES 11.2 % (2-11); NEUTROPHILS 73.7 % (40-80); RDW 16.3 % (11.5-14.5); WBC 8.8 10x3/uL (4.8-10.8)
[2017-06-19 05:44] LABS: MCV 91.5 fL (80.0-100.0); PLATELET COUNT 162 10x3/uL (130-400)
[2017-06-19 05:57] LABS: ALBUMIN 1.5 g/dL (3.4-5.0); BILIRUBIN - TOTAL 0.44 mg/dL (0.2-1.3); CARBON DIOXIDE 24.8 mmol/L (21.0-32.0); CREATININE - SERUM 2.5 mg/dL (0.6-1.3); MAGNESIUM - SERUM 1.9 mg/dL (1.8-2.4); PROTEIN - SERUM 5.6 g/dL (6.4-8.2); VANCOMYCIN - RANDOM 16.4 ug/mL (10.0-20.0)
[2017-06-19 06:00] LABS: ANION GAP 14.1 mmol/L (8-16); POTASSIUM - SERUM 2.9 mmol/L (3.5-5.1)
[2017-06-19 07:33] LABS: ANION GAP 8.9 mmol/L (8-16); CALCIUM 8.7 mg/dL (8.5-10.1); CARBON DIOXIDE 31.4 mmol/L (21.0-32.0); CREATININE - SERUM 2.6 mg/dL (0.6-1.3); POTASSIUM - SERUM 3.3 mmol/L (3.5-5.1)
[2017-06-20] VITALS (24 sets, daily range): BP systolic 107–142; BP diastolic 55–76
[2017-06-20 07:13] LABS: BASOPHILS 0.3 % (0-2); EOSINOPHILS 2.1 % (0-7); HEMATOCRIT 32.3 % (36.0-48.0); HEMOGLOBIN 9.5 g/dL (12-16); IMMATURE GRANULOCYTES 0.4 % (0-5); MCH 28.7 pg (26.0-34.0); MCHC 29.4 g/dL (31.0-37.0); MONOCYTES 8.3 % (2-11); NEUTROPHILS 76.9 % (40-80); RBC 3.31 10x6/uL (4.00-5.40); RDW 20.4 % (11.5-14.5)
[2017-06-20 07:34] LABS: BILIRUBIN - TOTAL 1.52 mg/dL (0.2-1.3); CALCIUM 8.8 mg/dL (8.5-10.1); CARBON DIOXIDE 29.3 mmol/L (21.0-32.0); MAGNESIUM - SERUM 2.2 mg/dL (1.8-2.4); PROTEIN - SERUM 5.8 g/dL (6.4-8.2); VANCOMYCIN - RANDOM 24.4 ug/mL (10.0-20.0)
[2017-06-20 07:35] LABS: MCV 97.6 fL (80.0-100.0); PLATELET COUNT 228 10x3/uL (130-400)
[2017-06-20 07:37] LABS: ANION GAP 10.6 mmol/L (8-16); CREATININE - SERUM 3.3 mg/dL (0.6-1.3); POTASSIUM - SERUM 3.9 mmol/L (3.5-5.1)
[2017-06-21] VITALS (25 sets, daily range): BP systolic 113–148; BP diastolic 62–86
[2017-06-21 07:18] LABS: ANION GAP 10.7 mmol/L (8-16); CALCIUM 8.9 mg/dL (8.5-10.1); CARBON DIOXIDE 29.8 mmol/L (21.0-32.0); CREATININE - SERUM 2.8 mg/dL (0.6-1.3)
[2017-06-21 07:22] LABS: POTASSIUM - SERUM 4.5 mmol/L (3.5-5.1)
[2017-06-21 07:29] LABS: BASOPHILS 0.3 % (0-2); EOSINOPHILS 1.9 % (0-7); HEMATOCRIT 33.6 % (36.0-48.0); IMMATURE GRANULOCYTES 0.4 % (0-5); LYMPHOCYTES 11.9 % (15-50); MCH 28.9 pg (26.0-34.0); MCHC 29.8 g/dL (31.0-37.0); MCV 97.1 fL (80.0-100.0); MEAN PLATELET VOLUME 10.1 fL (7.4-10.4); MONOCYTES 7.1 % (2-11); NEUTROPHILS 78.4 % (40-80); PLATELET COUNT 211 10x3/uL (130-400); RBC 3.46 10x6/uL (4.00-5.40); RDW 20.1 % (11.5-14.5); WBC 6.7 10x3/uL (4.8-10.8)
[2017-06-22] VITALS (24 sets, daily range): BP systolic 102–186; BP diastolic 57–116
[2017-06-22 04:41] LABS: BASOPHILS 0.3 % (0-2); EOSINOPHILS 1.5 % (0-7); HEMATOCRIT 32.3 % (36.0-48.0); HEMOGLOBIN 9.6 g/dL (12-16); IMMATURE GRANULOCYTES 0.2 % (0-5); LYMPHOCYTES 13.6 % (15-50); MCH 28.9 pg (26.0-34.0); MCHC 29.7 g/dL (31.0-37.0); MCV 97.3 fL (80.0-100.0); MEAN PLATELET VOLUME 9.8 fL (7.4-10.4); MONOCYTES 6.3 % (2-11); NEUTROPHILS 78.1 % (40-80); PLATELET COUNT 199 10x3/uL (130-400); RBC 3.32 10x6/uL (4.00-5.40); RDW 19.8 % (11.5-14.5); WBC 5.9 10x3/uL (4.8-10.8)
[2017-06-22 04:51] LABS: ANION GAP 12.1 mmol/L (8-16); CALCIUM 8.8 mg/dL (8.5-10.1); CARBON DIOXIDE 28.5 mmol/L (21.0-32.0); POTASSIUM - SERUM 4.6 mmol/L (3.5-5.1)
[2017-06-22 04:57] LABS: CREATININE - SERUM 3.8 mg/dL (0.6-1.3)
[2017-06-23] VITALS (24 sets, daily range): BP systolic 88–158; BP diastolic 58–114
[2017-06-23 05:12] LABS: BASOPHILS 0.6 % (0-2); HEMATOCRIT 35.9 % (36.0-48.0); HEMOGLOBIN 10.6 g/dL (12-16); IMMATURE GRANULOCYTES 0.2 % (0-5); MCH 28.8 pg (26.0-34.0); MCHC 29.5 g/dL (31.0-37.0); MCV 97.6 fL (80.0-100.0); MONOCYTES 6.3 % (2-11); NEUTROPHILS 77.9 % (40-80); PLATELET COUNT 185 10x3/uL (130-400); RBC 3.68 10x6/uL (4.00-5.40); RDW 19.6 % (11.5-14.5); WBC 5.4 10x3/uL (4.8-10.8)
[2017-06-23 05:29] LABS: ALBUMIN 2.2 g/dL (3.4-5.0); ANION GAP 11.3 mmol/L (8-16); BILIRUBIN - TOTAL 1.45 mg/dL (0.2-1.3); CALCIUM 9.3 mg/dL (8.5-10.1); CARBON DIOXIDE 29.9 mmol/L (21.0-32.0); CREATININE - SERUM 3.1 mg/dL (0.6-1.3); POTASSIUM - SERUM 4.2 mmol/L (3.5-5.1); PROTEIN - SERUM 6.4 g/dL (6.4-8.2)
[2017-06-24] VITALS (12 sets, daily range): BP systolic 95–133; BP diastolic 53–89
[2017-06-24 04:53] LABS: BASOPHILS 0.7 % (0-2); EOSINOPHILS 1.9 % (0-7); HEMATOCRIT 35.7 % (36.0-48.0); HEMOGLOBIN 10.8 g/dL (12-16); IMMATURE GRANULOCYTES 0.2 % (0-5); LYMPHOCYTES 14.3 % (15-50); MCH 29.1 pg (26.0-34.0); MCHC 30.3 g/dL (31.0-37.0); MCV 96.2 fL (80.0-100.0); MEAN PLATELET VOLUME 10.3 fL (7.4-10.4); MONOCYTES 7.8 % (2-11); NEUTROPHILS 75.1 % (40-80); PLATELET COUNT 183 10x3/uL (130-400); RBC 3.71 10x6/uL (4.00-5.40); RDW 19.7 % (11.5-14.5); WBC 5.4 10x3/uL (4.8-10.8)
[2017-06-24 05:10] LABS: CALCIUM 9.4 mg/dL (8.5-10.1); CARBON DIOXIDE 24.4 mmol/L (21.0-32.0)
[2017-06-24 05:12] LABS: CREATININE - SERUM 3.9 mg/dL (0.6-1.3)
[2017-06-24 05:13] LABS: ANION GAP 15.6 mmol/L (8-16)
[2017-06-24 13:30] LABS: APTT 30.1 SECONDS (22.8-39.4); INR 1.04 (0.85-1.17); PROTIME 13.2 SECONDS (11.6-15.0)
[2017-06-24 19:54] LABS: PROTEIN - BODY FLUID 2.9 G/DL
[2017-06-24 21:18] LABS: EOS BF 1 %; MACROPHAGES BF 1 %; NEUT - BF 37 %
[2017-06-25] VITALS: BP 97/53
[2017-06-25 04:00] VITALS: BP 93/50
[2017-06-25 09:47] VITALS: BP 90/54
[2017-06-25 12:42] VITALS: BP 104/60
[2017-06-25 18:13] VITALS: BP 106/64
[2017-06-25 21:35] VITALS: BP 101/61
[2017-06-26 01:24] VITALS: BP 93/53
[2017-06-26 06:30] VITALS: BP 99/59
[2017-06-26 07:06] LABS: BASOPHILS 0.4 % (0-2); EOSINOPHILS 2.7 % (0-7); HEMATOCRIT 34.6 % (36.0-48.0); HEMOGLOBIN 10.2 g/dL (12-16); IMMATURE GRANULOCYTES 0.2 % (0-5); LYMPHOCYTES 15.1 % (15-50); MCH 28.8 pg (26.0-34.0); MCHC 29.5 g/dL (31.0-37.0); MCV 97.7 fL (80.0-100.0); MEAN PLATELET VOLUME 10.5 fL (7.4-10.4); MONOCYTES 7.4 % (2-11); NEUTROPHILS 74.2 % (40-80); PLATELET COUNT 211 10x3/uL (130-400); RBC 3.54 10x6/uL (4.00-5.40); WBC 4.9 10x3/uL (4.8-10.8)
[2017-06-26 07:25] LABS: CARBON DIOXIDE 25.3 mmol/L (21.0-32.0); CREATININE - SERUM 4.3 mg/dL (0.6-1.3); POTASSIUM - SERUM 4.3 mmol/L (3.5-5.1)
[2017-06-26 09:10] VITALS: BP 127/77
[2017-06-26 12:08] LABS: AFB SPECIMEN PROCESSING Concentration (())
[2017-06-26 12:42] VITALS: BP 96/55
[2017-06-26 16:26] VITALS: BP 115/67
[2017-06-26 20:43] VITALS: BP 110/64
[2017-06-27 00:30] VITALS: BP 116/67
[2017-06-27 06:30] LABS: BASOPHILS 0.3 % (0-2); EOSINOPHILS 2.9 % (0-7); HEMATOCRIT 37.2 % (36.0-48.0); HEMOGLOBIN 11.1 g/dL (12-16); IMMATURE GRANULOCYTES 0.2 % (0-5); LYMPHOCYTES 14.8 % (15-50); MCH 29.1 pg (26.0-34.0); MCHC 29.8 g/dL (31.0-37.0); MCV 97.4 fL (80.0-100.0); MEAN PLATELET VOLUME 10.2 fL (7.4-10.4); NEUTROPHILS 74.8 % (40-80); PLATELET COUNT 228 10x3/uL (130-400); RBC 3.82 10x6/uL (4.00-5.40); RDW 20.3 % (11.5-14.5); WBC 5.9 10x3/uL (4.8-10.8)
[2017-06-27 06:39] LABS: ANION GAP 11.8 mmol/L (8-16); CALCIUM 8.9 mg/dL (8.5-10.1); CARBON DIOXIDE 28.5 mmol/L (21.0-32.0); CREATININE - SERUM 5.2 mg/dL (0.6-1.3); POTASSIUM - SERUM 4.3 mmol/L (3.5-5.1)
[2017-06-27 09:19] VITALS: BP 148/74
[2017-06-27 15:32] VITALS: BP 128/55
[2017-06-27 19:00] VITALS: BP 112/62
[2017-06-28 04:00] VITALS: BP 137/73
[2017-06-28 06:03] LABS: BASOPHILS 0.2 % (0-2); EOSINOPHILS 4.1 % (0-7); HEMATOCRIT 38.2 % (36.0-48.0); HEMOGLOBIN 11.3 g/dL (12-16); IMMATURE GRANULOCYTES 0.6 % (0-5); LYMPHOCYTES 17.1 % (15-50); MCH 29.1 pg (26.0-34.0); MCHC 29.6 g/dL (31.0-37.0); MCV 98.5 fL (80.0-100.0); MEAN PLATELET VOLUME 10.7 fL (7.4-10.4); MONOCYTES 7.8 % (2-11); NEUTROPHILS 70.2 % (40-80); PLATELET COUNT 202 10x3/uL (130-400); RBC 3.88 10x6/uL (4.00-5.40); RDW 20.5 % (11.5-14.5); WBC 5.4 10x3/uL (4.8-10.8)
[2017-06-28 06:31] LABS: ANION GAP 11.1 mmol/L (8-16); CALCIUM 9.2 mg/dL (8.5-10.1); CARBON DIOXIDE 30.9 mmol/L (21.0-32.0); CREATININE - SERUM 4.1 mg/dL (0.6-1.3)
[2017-06-28 08:14] VITALS: BP 141/63
[2017-06-28 11:53] VITALS: BP 152/70
[2017-06-28] MEDS ORDERED: PULMICORT0.5 MG/21 UPD (13:40)
[2017-06-29 10:22] LABS: FUNGUS STAIN Final report (())
[2017-07-06 07:32] LABS: FUNGUS MYCOLOGY CULTURE Final report (())
[2017-07-25 13:16] LABS: FUNGUS MYCOLOGY CULTURE Final report (())
[2017-08-03 14:48] LABS: ACID FAST CULTURE Negative (()); ACID FAST SMEAR Negative (())
[2017-08-16 17:13] LABS: ACID FAST CULTURE Negative (()); ACID FAST SMEAR Negative (())
== END 2017-06-28 16:04 | DRG 853 ==
LOC: D.ER 10:31 → D.EDHOLD 14:21 → D.ER 14:21 → D.EDHOLD 15:49 → D.ICU 06-06 05:19 → D.ER 06-06 05:19 → D.ICU 06-06 05:20 → D.M2 06-06 05:21 → D.ICU 06-06 05:21 → D.M2 06-24 15:59
PROVIDERS: Emergency Medicine; Family Medicine; General Practice; Internal Medicine; Internal Medicine Gastroenterology; Internal Medicine Nephrology; Internal Medicine Pulmonary Disease; Surgery
PROC: 06HM33Z Insertion of Infusion Device into Right Femoral Vein, Percutaneous Approach (ICD-10-PCS; 2017-06-05)
PROC: 5A1D70Z Performance of Urinary Filtration, Intermittent, Less than 6 Hours Per Day (ICD-10-PCS; 2017-06-06)
PROC: 5A1955Z Respiratory Ventilation, Greater than 96 Consecutive Hours (ICD-10-PCS; principal; 2017-06-08)
PROC: 0BH17EZ Insertion of Endotracheal Airway into Trachea, Via Natural or Artificial Opening (ICD-10-PCS; 2017-06-08)
PROC: 0B9F8ZX Drainage of Right Lower Lung Lobe, Via Natural or Artificial Opening Endoscopic, Diagnostic (ICD-10-PCS; 2017-06-09)
PROC: 0DH63UZ Insertion of Feeding Device into Stomach, Percutaneous Approach (ICD-10-PCS; 2017-06-24)
PROC: 0W9B3ZZ Drainage of Left Pleural Cavity, Percutaneous Approach (ICD-10-PCS; 2017-06-24)
DX: A41.9 Sepsis, unspecified organism (principal); R65.21 Severe sepsis with septic shock; J18.9 Pneumonia, unspecified organism; R57.1 Hypovolemic shock; J96.21 Acute and chronic respiratory failure with hypoxia; N18.6 End stage renal disease; K72.00 Acute and subacute hepatic failure without coma; I50.31 Acute diastolic (congestive) heart failure; G93.41 Metabolic encephalopathy; I82.C11 Acute embolism and thrombosis of right internal jugular vein; D62 Acute posthemorrhagic anemia; N25.81 Secondary hyperparathyroidism of renal origin; T17.590A Other foreign object in bronchus causing asphyxiation, initial encounter; J98.11 Atelectasis; E87.1 Hypo-osmolality and hyponatremia; D69.6 Thrombocytopenia, unspecified; Z66 Do not resuscitate; E87.5 Hyperkalemia; D63.1 Anemia in chronic kidney disease; E78.5 Hyperlipidemia, unspecified; I95.89 Other hypotension; K80.50 Calculus of bile duct without cholangitis or cholecystitis without obstruction; S30.1XXA Contusion of abdominal wall, initial encounter; X58.XXXA Exposure to other specified factors, initial encounter; E87.6 Hypokalemia; N25.0 Renal osteodystrophy

== ENCOUNTER → 2018-11-14 09:56 | Outpatient (CLI) | payer MEDICARE ==
[2017-06-13 12:00] VITALS: BMI 30.6
[~2018-11-14 09:56] MED LIST changes: +CALCIUM 600+D T1 TA1 PO; +PULMICORT0.5 MG/21 UPD
== END | disposition home or self-care (01) ==
LOC: D.RAD 09:56
PROVIDERS: ATTEND Internal Medicine Nephrology
DX: M54.5 Low back pain (principal)

== ENCOUNTER → 2018-12-05 09:26 | Outpatient (CLI) | payer MEDICARE ==
[2017-06-13 12:00] VITALS: BMI 30.6
== END | disposition home or self-care (01) ==
LOC: D.MRI 11-28 11:00
PROVIDERS: ATTEND Nurse Practitioner Family
DX: M54.5 Low back pain (principal); M54.6 Pain in thoracic spine

== ENCOUNTER 2020-06-30 14:06 | Inpatient (IN) | payer MEDICARE ==
[~2020-06-30] VITALS: Ht 175.3 cm; Wt 117.7 kg
--- NOTE | ~2020-06-30 | OP ---
PATIENT NAME: RICHELLE SANCHEZ MEDICAL RECORD: [id number] :56 LOCATION:D.M2 D.2120 ADMISSION DATE:07/01/20 SURGEON: VICTORINO DA SILVA MD DATE OF OPERATION: 07/01/2020 REFERRING PHYSICIAN: Deana Araya MD PREOPERATIVE DIAGNOSIS: End-stage renal disease, dependent on hemodialysis and recurrent thrombosis of AV graft. POSTOPERATIVE DIAGNOSIS: End-stage renal disease, dependent on hemodialysis and recurrent thrombosis of AV graft. OPERATIONS PERFORMED: Ultrasound and fluoroscopic-guided insertion of a left internal jugular tunneled Hemosplit dialysis catheter and this included performance of superior vena cavogram. SURGEON: Victorino Da Silva MD ANESTHESIA: Local and TIVA per Dr. Khanna. PREOPERATIVE NOTE: Ms. Sanchez is a 59-year-old white female patient with end-stage renal disease, who also is quite thrombophilia and has clotted numerous dialysis accesses. She has clotted her most recent access now just a day or two after it was last treated for thrombosis at [facility]. She needs to dialyze and she was taken to the operating room now to insert a tunneled central dialysis catheter. DESCRIPTION OF PROCEDURE: Under TIVA, the patient was placed in supine position, prepped and draped in a sterile manner. The right internal jugular vein was occluded. On ultrasound, the left internal jugular vein was patent by ultrasound. The vein was of normal caliber and fully compressible. Under local anesthesia, I made a small incision at the base of the neck and inserted a micropuncture needle and guidewire under continuous ultrasound guidance. The guidewire advanced into the right brachiocephalic vein. 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 With considerable difficulty, I was then unable to manipulate guidewires and catheters eventually placing an Amplatz wire in the inferior vena cava. I chose a 23-cm Hemosplit catheter and brought this in through separate lateral infraclavicular stab incision and inserted it through a peel-away introducer over the Amplatz wire. Still it had difficulty reaching around the angulation and down into the superior vena cava, but we were eventually successful with the Hemosplit down into the cavoatrial junction. It functioned well both lumens returned blood easily with aspiration and it was flushed easily with saline and heparin lock solution, clamped and capped. The patient's wound was closed with interrupted inverted 3-0 Vicryl and Dermabond glue Maxorb AG and dressed with Tegaderm and Cavilon. The catheter near the exit site was sutured to the skin with 2-0 Prolene and the exit site then dressed with a Biopatch and a standard CVL adhesive dressing. At this point, the patient was stable and was taken to the recovery room. Blood loss during the operation was about 5 cc, none was replaced. Sponges, OPERATIVE REPORT [id number] RICHELLE SANCHEZ instruments, and needles were accounted for. No drain was used. TRANSINT:[id number] Voice Confirmation ID: [id number] DOCUMENT ID: [id number] VICTORINO DA SILVA MD CC: DEANA ARAYA MD and KENZIE BERMUDEZ MD [id number] DICTATION DATE: 07/18/20 1214 LABEL DESIGNER: 07/18/202132 DIS IN 07/17/20 [facility] [address] [place] [address]
[2020-06-30] MEDS ORDERED: FLUDROCORTISON0.1 MG PO (14:13)
[2020-06-30 14:38] LABS: BASOPHILS 0.3 % (0-2); EOSINOPHILS 3.1 % (0-7); HEMATOCRIT 44.5 % (36.0-48.0); HEMOGLOBIN 13.3 g/dL (12-16); IMMATURE GRANULOCYTES 0.3 % (0-5); LYMPHOCYTE ABS# 1.49 10x3/uL (1.18-3.74); LYMPHOCYTES 18.8 % (15-50); MCH 25.9 pg (26.0-34.0); MCHC 29.9 g/dL (31.0-37.0); MCV 86.6 fL (80.0-100.0); MEAN PLATELET VOLUME 9.6 fL (7.4-10.4); MONOCYTES 7.1 % (2-11); NEUTROPHILS 70.4 % (40-80); PLATELET COUNT 174 10x3/uL (130-400); RBC 5.14 10x6/uL (4.00-5.40); RDW 17.8 % (11.5-14.5); WBC 7.9 10x3/uL (4.8-10.8)
[2020-06-30 15:12] LABS: ALBUMIN 3.4 g/dL (3.4-5.0); ALKALINE PHOSPHATASE 230 U/L (30-120); ALT (SGPT) 15 U/L (10-68); BILIRUBIN - TOTAL 0.56 mg/dL (0.2-1.3); CALC OSMOLALITY 295 mosm/kg (275-300); CARBON DIOXIDE 21.2 mmol/L (21.0-32.0); CHLORIDE - SERUM 98 mmol/L (98-107); CKMB 2.7 U/L (0.0-3.6); CREATINE KINASE 98 UL (21-215); CREATININE - SERUM 14.5 mg/dL (0.6-1.3); GLUCOSE 133 mg/dL (74-106); MAGNESIUM - SERUM 2.4 mg/dL (1.8-2.4); PROTEIN - SERUM 7.7 g/dL (6.4-8.2); SODIUM 136 mmol/L (136-145); TROPONIN-I 0.025 ng/mL (0.000-0.060); UREA NITROGEN 73 mg/dL (7-18); eGFR NON AFRICAN AMERICAN 3 mL/min (90-120)
[2020-06-30 15:16] LABS: CALCIUM 5.8 mg/dL (8.5-10.1)
[2020-06-30 15:20] LABS: POTASSIUM - SERUM 6.4 mmol/L (3.5-5.1)
[2020-06-30 16:06] LABS: INR 1.24 (0.85-1.17); PROTIME 14.4 SECONDS (11.6-15.0)
[2020-06-30] MEDS ORDERED: RENVELA800 MG PO (18:37)
[2020-06-30] MEDS ORDERED: LANOXIN125 MCG PO (18:37)
[2020-06-30] MEDS ORDERED: GABAPENTIN100 MG PO (18:38)
[2020-06-30] MEDS ORDERED: ASPIRIN81 MG PO (18:38)
[2020-06-30] MEDS ORDERED: ELIQUIS2.5 MG PO (18:38)
[2020-06-30] MEDS ORDERED: SYNTHROID137 MCG PO (18:39)
[2020-06-30] MEDS ORDERED: CELEXA20 MG PO (18:40)
[2020-06-30] MEDS ORDERED: NEURONTIN 300300 MG (18:40)
[2020-06-30] MEDS ORDERED: PHENERGAN25 M1 PO (18:42)
[2020-06-30] MEDS ORDERED: HYDROCODON-ACE1 EAC7 PO (18:42)
[2020-06-30] MEDS ORDERED: XANAX0.5 MG PO (18:43)
[2020-06-30] MEDS ORDERED: ULTRAM50 MG PO (18:44)
[2020-06-30] MEDS ORDERED: AMBIEN10 MG PO (18:45)
--- NOTE | 2020-06-30 19:30 | NUR ---
PT IN BED, AAO X 3, RESP EVEN AND UNLABORED, NO DISTRESS NOTED, CL IN REACH, SR UP X 2.
[2020-06-30 20:00] VITALS: BP 112/52
[2020-06-30 22:51] VITALS: BP 99/55
--- NOTE | 2020-07-01 03:02 | NUR ---
I have reviewed this patient and I concur with the Shift Assessment completed by the Licensed Practical Nurse today this shift.
[2020-07-01 05:38] VITALS: BP 101/61
[2020-07-01 07:32] LABS: INR 1.14 (0.85-1.17); PROTIME 13.5 SECONDS (11.6-15.0)
[2020-07-01 07:38] LABS: BASOPHILS 0.1 % (0-2); EOSINOPHILS 3.4 % (0-7); HEMATOCRIT 40.6 % (36.0-48.0); HEMOGLOBIN 12.3 g/dL (12-16); IMMATURE GRANULOCYTES 0.1 % (0-5); LYMPHOCYTE ABS# 1.49 10x3/uL (1.18-3.74); LYMPHOCYTES 14.9 % (15-50); MCH 26.1 pg (26.0-34.0); MCHC 30.3 g/dL (31.0-37.0); MEAN PLATELET VOLUME 9.4 fL (7.4-10.4); MONOCYTES 6.1 % (2-11); NEUTROPHIL ABS# 7.54 10x3/uL (1.56-6.13); NEUTROPHILS 75.4 % (40-80); PLATELET COUNT 168 10x3/uL (130-400); RBC 4.72 10x6/uL (4.00-5.40); RDW 17.7 % (11.5-14.5)
[2020-07-01 07:42] LABS: ALBUMIN 3.5 g/dL (3.4-5.0); BILIRUBIN - TOTAL 0.49 mg/dL (0.2-1.3); CREATININE - SERUM 15.3 mg/dL (0.6-1.3); MAGNESIUM - SERUM 2.2 mg/dL (1.8-2.4); PHOSPHOROUS 8.7 mg/dL (2.5-4.9); PROTEIN - SERUM 7.3 g/dL (6.4-8.2)
[2020-07-01 07:54] LABS: ANION GAP 26.5 mmol/L (8-16)
[2020-07-01 07:55] LABS: POTASSIUM - SERUM 6.5 mmol/L (3.5-5.1)
[2020-07-01 07:56] LABS: CALCIUM 5.4 mg/dL (8.5-10.1)
--- NOTE | 2020-07-01 09:56 | NUR ---
CALLED CRITICAL K 6.5 AND CA 5.4 TO ABIOLA HANSON. RECIEVED ORDER FOR ALBUTEROL UPDRAFT, INSULIN 10 IV AND D50 AMP. ORDERED BUT NOT GIVEN YET BECAUSE HAD TO WAIT ON INSULIN FROM PHARMACY AND THEN SURGERY CAME TO GET PATIENT.
--- NOTE | 2020-07-01 10:57 | NUR ---
PATIENT WENT FOR SX AT THE BEGINING OF THE SHIFT. BEDSIDE REPORT COMPLETED.
[2020-07-01 11:07] VITALS: BP 144/47
[2020-07-01 13:59] VITALS: BMI 29.1
[2020-07-01 16:56] VITALS: BP 90/53
--- NOTE | 2020-07-01 19:30 | NUR ---
PT IN BED, AAO X 3, RESP EVEN AND UNLABORED, NO DISTRESS NOTED, PT C/O PAIN WHERE HEMOSPLIT WAS PLACED TODAY, RENAL CALLED FOR PAIN MED, CL IN REACH, SR UP XS 2.
[2020-07-01 20:00] VITALS: BP 128/66
[2020-07-02] VITALS (8 sets, daily range): BP systolic 76–153; BP diastolic 42–95
--- NOTE | 2020-07-02 04:14 | NUR ---
I have reviewed this patient and I concur with the Shift Assessment completed by the Licensed Practical Nurse today this shift.
--- NOTE | 2020-07-02 10:41 | NUR ---
NURSE CLEANS PATIENT'S STOMA, CHANGES WAFER AND PLACES A NEW BAG FOR PATIENT. SHE IS ALSO COMPLAINING OF SOB.NURSE TALKS WITH DANIELLE HANSON AND HE ORDERS ALBUTEROL UPDRAFTS BID PRN. NURSE CALLS RESPIRATORY TO COME TO LOOK AT PATIENT. PATIENT WILL BE TAKEN TO DIALYSIS WELL.
--- NOTE | 2020-07-02 11:17 | NUR ---
PATIENT OFF FLOOR FOR DIALYSIS
[2020-07-02 12:19] LABS: BASOPHILS 0.1 % (0-2); EOSINOPHILS 1.5 % (0-7); HEMATOCRIT 33.3 % (36.0-48.0); IMMATURE GRANULOCYTES 0.3 % (0-5); LYMPHOCYTE ABS# 0.67 10x3/uL (1.18-3.74); LYMPHOCYTES 6.8 % (15-50); MCH 25.6 pg (26.0-34.0); MCHC 29.4 g/dL (31.0-37.0); MCV 86.9 fL (80.0-100.0); MEAN PLATELET VOLUME 9.9 fL (7.4-10.4); MONOCYTES 10.1 % (2-11); NEUTROPHIL ABS# 7.94 10x3/uL (1.56-6.13); NEUTROPHILS 81.2 % (40-80); RBC 3.83 10x6/uL (4.00-5.40); RDW 17.5 % (11.5-14.5); WBC 9.8 10x3/uL (4.8-10.8)
[2020-07-02 12:23] LABS: BILIRUBIN - TOTAL 0.69 mg/dL (0.2-1.3); MAGNESIUM - SERUM 2.1 mg/dL (1.8-2.4); PHOSPHOROUS 6.8 mg/dL (2.5-4.9)
[2020-07-02 12:25] LABS: ANION GAP 17.1 mmol/L (8-16); CARBON DIOXIDE 25.9 mmol/L (21.0-32.0); CREATININE - SERUM 9.4 mg/dL (0.6-1.3)
[2020-07-02 12:27] LABS: CALCIUM 6.3 mg/dL (8.5-10.1)
--- NOTE | 2020-07-02 12:32 | NUR ---
NURSE REPORTS CRITICAL CALCIUM TO MARGIE SANTOS. NO ORDERS
[2020-07-02 12:46] LABS: HEMOGLOBIN 9.8 g/dL (12-16); PLATELET COUNT 126 10x3/uL (130-400)
--- NOTE | 2020-07-02 16:34 | NUR ---
NURSE TALKS WITH DONNA. SANTOS ABOUT PATIENT 'S BP. CHEST XRAY HAS BEEN ORDERED. WAITNG ON RESULTS
--- NOTE | 2020-07-02 18:19 | NUR ---
NURSE DOES NOT SEE ANY GOOD VEINS TO STICK FOR HER A NEW IV AT THIS TIME
--- NOTE | 2020-07-02 19:30 | NUR ---
PT IN BED, AAO X 3, RESP EVEN AND UNLABROED, O DISTRESS NOTED, CL IN REACH, SR UP X 2.
--- NOTE | 2020-07-03 02:27 | NUR ---
I have reviewed this patient and I concur with the Shift Assessment completed by the Licensed Practical Nurse today this shift.
[2020-07-03 04:00] VITALS: BP 90/50
[2020-07-03 07:16] LABS: ALBUMIN 3.1 g/dL (3.4-5.0); ALKALINE PHOSPHATASE 172 U/L (30-120); ALT (SGPT) 9 U/L (10-68); CALC OSMOLALITY 279 mosm/kg (275-300); CARBON DIOXIDE 24.6 mmol/L (21.0-32.0); CHLORIDE - SERUM 96 mmol/L (98-107); CREATININE - SERUM 10.3 mg/dL (0.6-1.3); GLUCOSE 105 mg/dL (74-106); PHOSPHOROUS 6.8 mg/dL (2.5-4.9); POTASSIUM - SERUM 4.8 mmol/L (3.5-5.1); PROTEIN - SERUM 7.2 g/dL (6.4-8.2); SODIUM 134 mmol/L (136-145); UREA NITROGEN 46 mg/dL (7-18); eGFR NON AFRICAN AMERICAN 4 mL/min (90-120)
[2020-07-03 07:22] LABS: BASOPHILS 0.2 % (0-2); EOSINOPHILS 4.1 % (0-7); HEMATOCRIT 32.3 % (36.0-48.0); HEMOGLOBIN 9.6 g/dL (12-16); IMMATURE GRANULOCYTES 0.3 % (0-5); LYMPHOCYTE ABS# 1.03 10x3/uL (1.18-3.74); LYMPHOCYTES 10.5 % (15-50); MCH 25.9 pg (26.0-34.0); MCHC 29.7 g/dL (31.0-37.0); MCV 87.1 fL (80.0-100.0); MEAN PLATELET VOLUME 9.8 fL (7.4-10.4); NEUTROPHIL ABS# 7.47 10x3/uL (1.56-6.13); NEUTROPHILS 75.9 % (40-80); PLATELET COUNT 144 10x3/uL (130-400); RBC 3.71 10x6/uL (4.00-5.40); RDW 17.5 % (11.5-14.5); WBC 9.8 10x3/uL (4.8-10.8)
[2020-07-03 07:24] LABS: CALCIUM 5.8 mg/dL (8.5-10.1); TROPONIN-I < 0.017 ng/mL (0.000-0.060)
[2020-07-03 09:57] VITALS: BP 139/79
--- NOTE | 2020-07-03 13:31 | NUR ---
Nutrition Follow-up: Ate 100% of breakfast. HD today. Diet: Renal No new wt; last wt: 197# (07/01) Labs noted: Na 134, K+ 4.8, BUN 46, Cre 10.3, GFR 4, Ca 5.8, PO4 6.8, Alb 3.1 Meds noted: Albumin, Tums -RD will follow up within 5-7 days if pt still admitted.
[2020-07-03] MEDS ORDERED: ZOCOR10 MG PO (14:58)
[2020-07-03] MEDS ORDERED: PROTONIX20 MG PO (15:35)
[2020-07-03] MEDS ORDERED: PROZAC20 MG PO (15:38)
[2020-07-03 17:28] VITALS: BP 139/83
--- NOTE | 2020-07-03 19:30 | NUR ---
PT IN BED, AAO X 3, RESP EVEN AND UNLABORED, NO DISTRESS NOTED, CL IN REACH, SR UP X 2.
--- NOTE | 2020-07-04 02:27 | NUR ---
I have reviewed this patient and I concur with the Shift Assessment completed by the Licensed Practical Nurse today this shift.
[2020-07-04 04:20] VITALS: BP 96/59
--- NOTE | 2020-07-04 07:00 | NUR ---
Lying in bed, awake/alert/oriented, t/r self ad ioana, using a purewick that is patent and draining clear yellow urine to cdb in ample amt, cath care provided with daily bath and prn, cont of bowel with use of bsc/bedpan ad ioana, pericare provided with daily bath and prn, denies pain/other discomfort at this time, call light/phone/water within reach, no s/s of acute distress observed.
[2020-07-04 08:39] VITALS: BP 127/56
[2020-07-04 11:24] VITALS: BP 113/48
--- NOTE | 2020-07-04 11:50 | NUR ---
Off unit for dialysis at this time.
[2020-07-04 12:43] LABS: BASOPHILS 0.1 % (0-2); EOSINOPHILS 3.7 % (0-7); HEMATOCRIT 31.8 % (36.0-48.0); HEMOGLOBIN 9.5 g/dL (12-16); IMMATURE GRANULOCYTES 0.5 % (0-5); LYMPHOCYTES 7.6 % (15-50); MCH 25.9 pg (26.0-34.0); MCHC 29.9 g/dL (31.0-37.0); MCV 86.6 fL (80.0-100.0); MEAN PLATELET VOLUME 9.4 fL (7.4-10.4); MONOCYTES 6.7 % (2-11); NEUTROPHIL ABS# 6.41 10x3/uL (1.56-6.13); NEUTROPHILS 81.4 % (40-80); RBC 3.67 10x6/uL (4.00-5.40); RDW 17.4 % (11.5-14.5); WBC 7.9 10x3/uL (4.8-10.8)
[2020-07-04 12:46] LABS: PLATELET COUNT 177 10x3/uL (130-400)
[2020-07-04 12:49] LABS: ALBUMIN 3.1 g/dL (3.4-5.0); ANION GAP 20.8 mmol/L (8-16); BILIRUBIN - TOTAL 0.56 mg/dL (0.2-1.3); CARBON DIOXIDE 23.7 mmol/L (21.0-32.0); CREATININE - SERUM 11.9 mg/dL (0.6-1.3); MAGNESIUM - SERUM 2.4 mg/dL (1.8-2.4); PHOSPHOROUS 8.2 mg/dL (2.5-4.9); POTASSIUM - SERUM 5.5 mmol/L (3.5-5.1); PROTEIN - SERUM 7.6 g/dL (6.4-8.2)
[2020-07-04 12:53] LABS: CALCIUM 5.6 mg/dL (8.5-10.1)
--- NOTE | 2020-07-04 14:50 | NUR ---
Returned from dialysis, were only able to remove 2000 mL d/t BP dropping, VS 97.8, 21, 98%, 77, 119/64; call light/phone/water within reach, no s/s of acute distress observed.
--- NOTE | 2020-07-04 19:15 | NUR ---
PT SITTING ON SIDE OF BED, AWAKE ALERT NO DISTRESS NOTED WILLC ONTINUE TO MONITOR
--- NOTE | 2020-07-04 20:00 | NUR ---
PT REQUESTING BUPRENEX FOR PAIN, PT WITHOU PIV AND ONLY HAS LEFT HEMOSPLIT. SPOKE TO DR NORRIS ORDERS DO NOT USE HEMOSPLIT CHNAGE BUPRENEX TO IM
[2020-07-04 20:29] VITALS: BP 105/59
--- NOTE | 2020-07-04 21:12 | NUR ---
MEDS PASSED. NO S/S OF DISTRESS. AAOX4. SN ASSISTED WITH COLOSTOMY BAG AND APPLICATION. DENIES ANY OTHER NEEDS OR CONCERNS. CLIR BED IN LOWEST POSITION. WILL CONT TO MONITOR.
--- NOTE | 2020-07-05 00:30 | NUR ---
20 GAUGE PIV PLACED TO LEFT FA, PER SHAMIR RN VO OK TO USE LUE PT NEEDS CT WITH CONTRAST, PT TOLERATED WELL NO DISTRESS NOTED COLOSTOMY BAG CHANGED, MOD AMT HORTENCIA-BROWN SOFT STOOL NOTED TO OLD OSTOMY BAG
[2020-07-05 00:46] VITALS: BP 92/53
[2020-07-05 05:36] LABS: BASOPHILS 0.3 % (0-2); EOSINOPHILS 5.9 % (0-7); HEMATOCRIT 32.2 % (36.0-48.0); HEMOGLOBIN 9.4 g/dL (12-16); IMMATURE GRANULOCYTES 0.5 % (0-5); LYMPHOCYTE ABS# 0.76 10x3/uL (1.18-3.74); LYMPHOCYTES 11.4 % (15-50); MCH 25.5 pg (26.0-34.0); MCHC 29.2 g/dL (31.0-37.0); MCV 87.3 fL (80.0-100.0); MEAN PLATELET VOLUME 9.3 fL (7.4-10.4); MONOCYTES 8.3 % (2-11); NEUTROPHILS 73.6 % (40-80); PLATELET COUNT 194 10x3/uL (130-400); RBC 3.69 10x6/uL (4.00-5.40); RDW 17.6 % (11.5-14.5); WBC 6.7 10x3/uL (4.8-10.8)
[2020-07-05 05:53] VITALS: BP 89/50
[2020-07-05 06:19] LABS: ANION GAP 16.4 mmol/L (8-16); BILIRUBIN - TOTAL 0.56 mg/dL (0.2-1.3); CARBON DIOXIDE 27.3 mmol/L (21.0-32.0); MAGNESIUM - SERUM 2.2 mg/dL (1.8-2.4); POTASSIUM - SERUM 4.7 mmol/L (3.5-5.1); PROTEIN - SERUM 7.1 g/dL (6.4-8.2)
[2020-07-05 06:20] LABS: CALCIUM 6.1 mg/dL (8.5-10.1); PHOSPHOROUS 5.8 mg/dL (2.5-4.9)
[2020-07-05 08:20] VITALS: BP 96/50
--- NOTE | 2020-07-05 11:43 | NUR ---
IN BED. DENIES NEEDS AT THIS TIME. BED LOW POSITION, CALL LIGHT IN REACH. WILL CONTINUE TO MONITOR.
[2020-07-05 12:32] VITALS: BP 83/47
[2020-07-05 15:50] VITALS: BP 92/47
--- NOTE | 2020-07-05 19:15 | NUR ---
RECEIVED PATIENT SITTING UP IN BED. ASSESSMENT COMPKETE. NO S/S OF DISTRESS. AAOX4. REPORTS MILD PAIN TO BACK, DENIES THE NEED FOR ANY PAIN MEDICATION. SN INSTRUCTED ON REPOSITIONING TO HELP EASE BACK PAIN. DENIES ANY OTHER NEEDS OR CONCERNS AT THIS TIME. CLIR, BED IN LOWEST POSITION. WILL CONT TO MONITOR
[2020-07-05 20:30] VITALS: BP 75/40
--- NOTE | 2020-07-06 | NUR ---
SLEEPING SUPINE, HOB ELEVATED. RR EVEN AND NONLABORED. CLIR, BED IN LOWEST POSITION. WILL CONT TO MONITOR
[2020-07-06 00:30] VITALS: BP 98/51
[2020-07-06 04:30] VITALS: BP 104/61
--- NOTE | 2020-07-06 07:00 | NUR ---
SITTING UP ON SIDE OF BED, AWAKE/ALERT/ORIENTED, T/R SELF AD ENMANEUL, CONT OF B/B WITH BRPs PER SELF AD ENMANUEL, C/O DULL RT. CHEST PAIN RATED 6/10, MEDICATED ORDERED (SEE MAR), CALL LIGHT/PHONE/WATER WITHIN REACH, NO S/S OF ACUTE DISTRESS OBSERVED.
[2020-07-06 07:25] LABS: BASOPHILS 0.1 % (0-2); EOSINOPHILS 5.1 % (0-7); HEMATOCRIT 33.7 % (36.0-48.0); HEMOGLOBIN 9.6 g/dL (12-16); IMMATURE GRANULOCYTES 0.6 % (0-5); LYMPHOCYTE ABS# 1.17 10x3/uL (1.18-3.74); LYMPHOCYTES 16.1 % (15-50); MCH 25.3 pg (26.0-34.0); MCHC 28.5 g/dL (31.0-37.0); MCV 88.7 fL (80.0-100.0); MEAN PLATELET VOLUME 9.2 fL (7.4-10.4); MONOCYTES 10.1 % (2-11); NEUTROPHIL ABS# 4.93 10x3/uL (1.56-6.13); PLATELET COUNT 227 10x3/uL (130-400); RDW 17.5 % (11.5-14.5); WBC 7.3 10x3/uL (4.8-10.8)
[2020-07-06 07:50] LABS: ALBUMIN 3.3 g/dL (3.4-5.0); BILIRUBIN - TOTAL 0.58 mg/dL (0.2-1.3); CARBON DIOXIDE 24.5 mmol/L (21.0-32.0); CREATININE - SERUM 10.8 mg/dL (0.6-1.3); MAGNESIUM - SERUM 2.2 mg/dL (1.8-2.4)
[2020-07-06 07:54] LABS: ANION GAP 22.2 mmol/L (8-16); PHOSPHOROUS 7.6 mg/dL (2.5-4.9); POTASSIUM - SERUM 5.7 mmol/L (3.5-5.1)
[2020-07-06 07:56] LABS: CALCIUM 5.6 mg/dL (8.5-10.1)
--- NOTE | 2020-07-06 08:01 | NUR ---
LAB CALLED CRITICAL LOW CALCIUM, CALLED ABIOLA HANSON AND REPORTED, WAITING FOR ORDERS.
[2020-07-06 08:26] VITALS: BP 96/61
[2020-07-06 13:21] VITALS: BP 111/63
[2020-07-06 20:00] VITALS: BP 137/72
--- NOTE | 2020-07-06 20:00 | NUR ---
ASSESMENT COMPLETE. NO S/S OF DISTRESS, AAOX4. REPORTS PAIN TO RT SIDE. WILL MEDICATE PER EMAR. MEDS PASSED. SN SPENT TIEM WITH FAMILY ANSWERING QUESTIONS REALTED TO PROCEDURES SCHEDULED FOR TOMORRW. DENIES ANY OTHER NEEDS OR CONCERNS. CLIR, BED IN LOWEST POSITION. WILL CONT TO MONITOR
[2020-07-07] VITALS (39 sets, daily range): BP systolic 71–123; BP diastolic 28–75
--- NOTE | 2020-07-07 00:51 | NUR ---
PT SLEEPING IN ROOM. RR EVEN AND NONLABORED. NO S/S OF DISTRESS. CLIR. BED IN LOWEST POSITION. WILL CONT TO MONITOR.
--- NOTE | 2020-07-07 09:00 | NUR ---
PATIENT PRE OP'D AND TAKEN BACK FOR SURGERY AT THIS TIME. PATIENT HAS FAMILY IN ROOM.
[2020-07-07 09:01] LABS: ALBUMIN 3.4 g/dL (3.4-5.0); ANION GAP 21.2 mmol/L (8-16); BILIRUBIN - TOTAL 0.63 mg/dL (0.2-1.3); CARBON DIOXIDE 23.8 mmol/L (21.0-32.0); CREATININE - SERUM 9.5 mg/dL (0.6-1.3); MAGNESIUM - SERUM 2.2 mg/dL (1.8-2.4); PROTEIN - SERUM 7.1 g/dL (6.4-8.2)
[2020-07-07 09:03] LABS: CALCIUM 6.1 mg/dL (8.5-10.1)
[2020-07-07 09:40] LABS: BASOPHILS 0.1 % (0-2); EOSINOPHILS 3.8 % (0-7); HEMATOCRIT 32.9 % (36.0-48.0); HEMOGLOBIN 9.4 g/dL (12-16); IMMATURE GRANULOCYTES 0.4 % (0-5); LYMPHOCYTE ABS# 0.86 10x3/uL (1.18-3.74); LYMPHOCYTES 12.5 % (15-50); MCH 25.3 pg (26.0-34.0); MCHC 28.6 g/dL (31.0-37.0); MCV 88.4 fL (80.0-100.0); MEAN PLATELET VOLUME 8.9 fL (7.4-10.4); MONOCYTES 8.6 % (2-11); NEUTROPHIL ABS# 5.12 10x3/uL (1.56-6.13); NEUTROPHILS 74.6 % (40-80); PLATELET COUNT 216 10x3/uL (130-400); RBC 3.72 10x6/uL (4.00-5.40); RDW 17.5 % (11.5-14.5); WBC 6.9 10x3/uL (4.8-10.8)
--- NOTE | 2020-07-07 12:19 | NUR ---
CVL AND ARTERIAL LINE PLACED BY ANESTHESIA IN RIGHT GROIN, TWORLEY.
--- NOTE | 2020-07-07 18:30 | NUR ---
CALL RECEIVED FROM ANDI HSIEH. PT'S DAUGTHER. PROVIDED PT'S FULL NAME AND . SHE WAS PROVIDED WITH PASSCODE. BRIEF UP DATE GIVEN. PT CONTINUES ON JUNIOR TO MAINTAIN BLOOD PRESSURE. PT IS COMFORTABLE AT THIS TIME. VISITATION TIMES GIVEN.
--- NOTE | 2020-07-07 21:15 | NUR ---
DR CABRERA MADE AWARE OF JUNIOR MAXED AND B/P AT OR BELOW DESIRED RANGE. RECEIVED ORDERS FOR ABG, RESULTS REPORTED AND RECEIVED ORDERS FOR 1 AMP CALCIUM CL AND 1 UNIT PRBC, AND START LEVOPHED IF NEEDED TO KEEP MAP >55. DR HAMLIN CALLED AND REPORTED PT ON FENTANYL EPIDURAL DUE TO FENTANYL DRIP ORDERED. DRIP D/C'D AND RECEIVED ORDERS FOR VERSED 1-2MG Q2HPRN FOR SEDATION.
--- NOTE | 2020-07-07 23:45 | NUR ---
PT HAVING SEIZURES WITH HX. DR CABRERA CALLED AND RECEIVED ORDER 1MG ATIVAN IV. ATIVAN GIVEN.
[2020-07-08] VITALS (93 sets, daily range): BP systolic 54–126; BP diastolic 25–60
[2020-07-08 05:05] LABS: BASOPHILS 0.2 % (0-2); EOSINOPHILS 0.6 % (0-7); HEMATOCRIT 35.6 % (36.0-48.0); IMMATURE GRANULOCYTES 0.5 % (0-5); LYMPHOCYTE ABS# 0.78 10x3/uL (1.18-3.74); LYMPHOCYTES 7.9 % (15-50); MCHC 30.9 g/dL (31.0-37.0); MCV 87.5 fL (80.0-100.0); MEAN PLATELET VOLUME 9.1 fL (7.4-10.4); MONOCYTES 7.4 % (2-11); NEUTROPHIL ABS# 8.22 10x3/uL (1.56-6.13); NEUTROPHILS 83.4 % (40-80); PLATELET COUNT 233 10x3/uL (130-400); RBC 4.07 10x6/uL (4.00-5.40); RDW 16.5 % (11.5-14.5)
[2020-07-08 05:10] LABS: WBC 9.9 10x3/uL (4.8-10.8)
[2020-07-08 05:20] LABS: ANION GAP 20.7 mmol/L (8-16); BILIRUBIN - TOTAL 0.87 mg/dL (0.2-1.3); CARBON DIOXIDE 20.4 mmol/L (21.0-32.0); CREATININE - SERUM 10.1 mg/dL (0.6-1.3); MAGNESIUM - SERUM 1.9 mg/dL (1.8-2.4); POTASSIUM - SERUM 5.1 mmol/L (3.5-5.1)
[2020-07-08 05:24] LABS: ALBUMIN 2.4 g/dL (3.4-5.0); CALCIUM 5.7 mg/dL (8.5-10.1)
--- NOTE | 2020-07-08 06:20 | NUR ---
RECEIVED CRITICAL CALCIUM OF 5.7. ABG OBTAINED FOR IONIZED CALCIUM. DR CABRERA MADE AWARE, NO ORDERS AT THIS TIME.
--- NOTE | 2020-07-08 07:00 | NUR ---
RECEIVED BEDSIDE REPORT ON PATIENT AND ASSUMED CARE. PATIENT ON VENT, AWAKENS AND FOLLOWS COMMANDS. RESTRAINTS IN PLACE. JOJO AND SCD IN PLACE. OTT CATH IN PLACE, ANURIC WITH STAT LOCK. IV 20 GA TO LEFT FA NSL. HEMISPLIT TO RIGHT SUBCLAVIAN IN PLACE, DRESSING C/D/I. CVL TO RIGHT GROIN, DRESSING C/D/I, INFUSING PLASMOLYTE AT 10 ML/HR, NEOSYNEPHRINE AT 0.9 MCG/KG/MIN (24.3 ML/HR), LEVOPHED AT 0.1 MCG/KG/MIN (39 ML/HR) AND ZINACEF AT 12.8 ML/HR. CHEST TUBE TO RIGHT SIDE TO 20 CM WALL SUCTION, NO AIR LEAK NOTED AT PRESENT, A - 0 ML, P - 10 ML OF BLOODY DRAINAGE NOTED. BBS - CLEAR, DIMINISHED IN BASES, HYPOACTIVE BOWEL SOUNDS X 4, CM - SR RATE 66. HEAD TO TOE ASSESSMENT COMPLETED.
--- NOTE | 2020-07-08 07:10 | NUR ---
DR. NORRIS AT ROOM UPDATED AND EXAMINES PATEINT. ORDERS 1 GM CALCIUM CHLORIDE IVPB.
--- NOTE | 2020-07-08 09:20 | NUR ---
DR. CABRERA AT ROOM UPDATED AND EXAMINES PATIENT. OK TO DC OTT CATH AND TO STOP LEVOPHED GTT. DR. HAMLIN AT ROOM TO START SBT FOR POSSIBLE EXTUBATION.
--- NOTE | 2020-07-08 09:30 | NUR ---
DR. HAMLIN AT ROOM PATIENT NOT TOLERATING SBT, RR ELEVATED ADN BP DECREASED TO 54/25, LEVOPHED GTT RESTARTED. PLACED BACK ON RATE. DR. HAMLIN STATES WILL ATTEMPT AGAIN THIS AFTERNOON.
--- NOTE | 2020-07-08 10:15 | NUR ---
Nutrition Reassessment/Follow-up: POD 1 thoracotomy. Intubated. Discussed in IDT rounding; possible extubation today. Diet: NPO Wt: 217# (07/08); 186.2# (07/01)Adj. BW: 163# Labs noted: K+ 5.1, Glu 109, Ca 5.7, Alb 2.4 Meds reviewed Est needs: 6493-4468 kcal/day (30-35 kcal/kg adj BW) 90-95 g protein/day (1.2-1.3 g/kg adj BW) Fluid: 1000 mL + UOP -If pt remains intubated, rec initiate TF within 24 hrs if medically feasible. - follow-up: 07/09
--- NOTE | 2020-07-08 11:00 | NUR ---
REASSESSMENT COMPLETED. VSS.
--- NOTE | 2020-07-08 12:16 | NUR ---
TOLERATING DIALYSIS WELL. VSS.
--- NOTE | 2020-07-08 13:26 | NUR ---
PATIENTS DAUGHTER CALLED AND PROVIDED PASSWORD, UPDATED ON PATIENTS CONDITION AND QUESTIONS ANSWERED.
--- NOTE | 2020-07-08 13:47 | NUR ---
DIALYSIS COMPLETE 2 LITERS REMOVED, TOLERATED WELL.
--- NOTE | 2020-07-08 14:06 | NUR ---
BLOOD CULTURES DRAWN AND SENT TO LAB. SPUTUM CULTURE OBTAINED AND SENT TO LAB.
--- NOTE | 2020-07-08 14:18 | NUR ---
PATIENT STARTED ON SBT.
--- NOTE | 2020-07-08 14:47 | NUR ---
PATIENT TOLERATING SBT, VSS.
--- NOTE | 2020-07-08 15:09 | NUR ---
REASSESSMENT COMPLETE. VSS. SBT CONTINUING, TOLERATING WELL.
--- NOTE | 2020-07-08 15:43 | NUR ---
PATIENT EXTUBATED AT 1530 HRS PER ORDER BY RT AND PLACED ON NC. ORAL CARE PROVIDED. VSS. RESTRAINTS DISCONTINUED.
--- NOTE | 2020-07-08 16:23 | OP ---
PATIENT NAME: RICHELLE CONNOLLY MEDICAL RECORD: [id number] :56 LOCATION:D.[facility] D.CV03 ADMISSION DATE:07/01/20 SURGEON: ANURAG CABRERA MD DATE OF OPERATION: 07/07/2020 SURGEON: Anurag Cabrera MD PROCEDURES PERFORMED: 1. Right thoracotomy with evacuation of hemothorax. 2. Total decortication. 3. Repair several air leaks right upper and middle lobe. 4. Bronchoscopy. PREOPERATIVE DIAGNOSIS: Hemothorax, status post dialysis access catheter placement. POSTOPERATIVE DIAGNOSIS: Hemothorax, status post dialysis access catheter placement plus dense intrapleural adhesions, right lung and chronic renal failure with dialysis. ANESTHESIA: Double lumen general endotracheal anesthesia. ESTIMATED BLOOD LOSS: 12 00 cc, 1 liter of hemothorax. TRANSFUSIONS: Two packed red blood cells, 1 platelets, and 500 Cell Saver. COMPLICATIONS: None. SPECIMENS: Hematoma fluid for culture and pleural peel for pathology. CONDITION: Stable. DISPOSITION: ICU. OPERATIVE FINDINGS: There were dense adhesions limiting the access into the chest at the fifth interspace, so we moved inferiorly to the seventh interspace. We were able to enter and carefully approach anteriorly by enlarging the thoracotomy incision anteriorly and drained the hematoma, eventually able to decorticate the entire lung and repair several air leaks and one opening in small branch of the pulmonary artery. After irrigation, there were minimal air leaks and Progel was used. The lung appeared to reexpand normally. Bronchoscopy with no endobronchial lesions and minimal amount of mucus, small air leak on positive pressure ventilation with significant respiratory acidosis, taken to ICU, ventilated, and for possible dialysis due to hyperkalemia. INDICATION: Large right hemothorax with significant dyspnea. PROCEDURE IN DETAIL: The patient was brought to the operating suite. Double lumen general endotracheal anesthesia was obtained and femoral arterial and venous catheters were placed by anesthesia. The patient was carefully turned to the left lateral decubitus position with appropriate padding. The right posterolateral thoracotomy incision was made. Subcutaneous tissue divided with electrocautery. Latissimus muscle was divided to allow access anteriorly and the serratus muscle was retracted anteriorly. The fifth interspace was opened. OPERATIVE REPORT [id number] RICHELLE CONNOLLY A small section of the rib was taken posteriorly, but there was dense fusion of the pleura at this site. Therefore, two spaces inferiorly the intercostals were again divided. Pleural cavity was entered, working posteriorly and then anteriorly, the fluid collection was entered. It was typical old blood. No active bleeding was noted. Dense adhesions to the apex were taken down and the entire lung was decorticated. Thorough irrigation was undertaken. Several sutures were used for air leaks and one for bleeding from a small pulmonary artery branch. With the lung fully reexpanded chest tubes were placed apically and inferiorly. Pericostal sutures were used to close both of the thoracic openings running muscle layers times 2 subcutaneous and skin clips. The patient was then reintubated with a single lumen tube supine position and bronchoscopy performed. The patient to ICU. TRANSINT:[id number] Voice Confirmation ID: [id number] DOCUMENT ID: [id number] ANURAG CABRERA MD at 1623 CC: PATIENCE HAMLIN MD, DEANA NORRIS MD and JESUS YEN [id number] DICTATION DATE: 07/07/20 1542 RISK PROFESSIONAL: 07/07/20 2324 ADM IN [facility] [id number] [place] [address]
--- NOTE | 2020-07-08 17:12 | NUR ---
PATIENTS DAUGHTER AT ROOM UPDATED AND QUESTIONS ANSWERED, VISITS WITH PATIENT.
--- NOTE | 2020-07-08 23:21 | NUR ---
DAUGHTER UPDATED AT 2024. PT CODE WAS OBTAINED TO VERIFY IDENTITY. QUESTIONS ANSWERED AND VERBALIZED UNDERSTANDING. POC WAS DISCUSSED AT LENGTH WITH BOTH PT AND DAUGHTER. SON CALLED SHORTLY AFTER TO GET VISITING TIMES. QUESTIONS ANSWERED AND VERBALIZED UNDERSTANDING. WILL CONT TO MONITOR CLOSELY.
[2020-07-09] VITALS (83 sets, daily range): BP systolic 48–181; BP diastolic 22–160
[2020-07-09 05:10] LABS: BASOPHILS 0.2 % (0-2); EOSINOPHILS 1.3 % (0-7); HEMATOCRIT 35.7 % (36.0-48.0); IMMATURE GRANULOCYTES 0.5 % (0-5); LYMPHOCYTE ABS# 0.84 10x3/uL (1.18-3.74); MCHC 30.8 g/dL (31.0-37.0); MCV 87.5 fL (80.0-100.0); MEAN PLATELET VOLUME 8.9 fL (7.4-10.4); MONOCYTES 8.6 % (2-11); NEUTROPHIL ABS# 9.95 10x3/uL (1.56-6.13); NEUTROPHILS 82.4 % (40-80); PLATELET COUNT 216 10x3/uL (130-400); RBC 4.08 10x6/uL (4.00-5.40); RDW 16.5 % (11.5-14.5); WBC 12.1 10x3/uL (4.8-10.8)
[2020-07-09 05:23] LABS: ALBUMIN 2.2 g/dL (3.4-5.0); ANION GAP 18.3 mmol/L (8-16); BILIRUBIN - TOTAL 0.83 mg/dL (0.2-1.3); CARBON DIOXIDE 22.5 mmol/L (21.0-32.0); CREATININE - SERUM 8.6 mg/dL (0.6-1.3); MAGNESIUM - SERUM 1.9 mg/dL (1.8-2.4); POTASSIUM - SERUM 4.8 mmol/L (3.5-5.1); PROTEIN - SERUM 6.3 g/dL (6.4-8.2)
[2020-07-09 05:25] LABS: CALCIUM 6.4 mg/dL (8.5-10.1)
--- NOTE | 2020-07-09 10:59 | NUR ---
Nutrition Reassessment/Follow-up: POD 2. Extubated yesterday. HD yesterday (-2L). Tolerated clears this AM. Discussed in IDT rounds; ok to advance diet per Dr. Mosquera. Diet: Clear Liquid Wt: 228# (07/09); 197# (07/01)Adj. BW: 165.8# Labs noted: K+ 4.8, Ca 6.4, Alb 2.2 Meds noted: Colace, Tums, Protonix Est needs: 7150-3215 kcal/day (30-35 kcal/kg adjusted BW) 90-100 g protein/day (1.2-1.3 g/kg adjusted BW) Fluid: 1000 mL + UOP -Advance to renal diet per Dr. Mosquera. -Encourage PO intake and honor food preferences within diet restrictions. -Offer Nepro with meals. -RD follow-up: 07/11
--- NOTE | 2020-07-09 14:47 | NUR ---
PT HYPOTENSIVE, SYSTOLIC 60'S NONSYMPOTMATIC WITH A MAP IN THE 30'S. SHE STATES BP IS NORMALLY LOW, ALERT AND ORIENTED. ANSWERS APPROPIATE QUESTIONS. INFORMED DR CABRERA, NO NEW ORDERS.
--- NOTE | 2020-07-09 21:59 | NUR ---
CVL AND MARIE DRESSING TO RIGHT GROIN CHANGED PER PROTOCOL.
[2020-07-10] VITALS (79 sets, daily range): BP systolic 70–137; BP diastolic 35–87
[2020-07-10 06:02] LABS: BASOPHILS 0.2 % (0-2); EOSINOPHILS 3.1 % (0-7); HEMATOCRIT 33.7 % (36.0-48.0); IMMATURE GRANULOCYTES 0.4 % (0-5); LYMPHOCYTE ABS# 0.84 10x3/uL (1.18-3.74); LYMPHOCYTES 8.3 % (15-50); MCH 26.6 pg (26.0-34.0); MCHC 29.7 g/dL (31.0-37.0); MEAN PLATELET VOLUME 9.5 fL (7.4-10.4); MONOCYTES 7.5 % (2-11); NEUTROPHILS 80.5 % (40-80); PLATELET COUNT 210 10x3/uL (130-400); RBC 3.76 10x6/uL (4.00-5.40); RDW 16.7 % (11.5-14.5); WBC 10.1 10x3/uL (4.8-10.8)
[2020-07-10 06:11] LABS: MCV 89.6 fL (80.0-100.0)
[2020-07-10 06:19] LABS: ALBUMIN 1.9 g/dL (3.4-5.0); ANION GAP 19.2 mmol/L (8-16); BILIRUBIN - TOTAL 0.57 mg/dL (0.2-1.3); CARBON DIOXIDE 21.2 mmol/L (21.0-32.0); CREATININE - SERUM 9.3 mg/dL (0.6-1.3); DIGOXIN 0.82 ng/mL (0.90-2.00); POTASSIUM - SERUM 5.4 mmol/L (3.5-5.1)
[2020-07-10 06:20] LABS: CALCIUM 5.5 mg/dL (8.5-10.1)
--- NOTE | 2020-07-10 09:42 | NUR ---
0700 PT RECIEVED ALERT AND ORIENTED VSS DENIES ALL NEEDS, [address] DUARTE NURSE AND BOBBIN STRIPPER, WEANING LEVO
--- NOTE | 2020-07-10 10:50 | NUR ---
Nutrition Follow-up: POD 3 thoracotomy. Tolerating diet. Fair PO intake this AM. Denies N/V/C/D, chewing/swallowing difficulties. HD today. Diet: Renal PO intake: 100% x 3 yesterday; ~50% this AM WT: 228# (07/09) Last BM: 07/09 Labs noted: Na 135, K+ 5.4, Glu 114, Ca 5.5, Alb 1.9 Meds noted: Colace, Tums, Calcitriol, Protonix, Miralax, Humulin, calcium chloride (x1 this AM) -Encourage PO intake and honor food preferences within diet restrictions. -Offer Nepro with meals. -RD follow-up: 07/14
--- NOTE | 2020-07-10 13:07 | NUR ---
SPOKE WITH TIMOTEO IN PHARMACY FOR MELISSA
--- NOTE | 2020-07-10 15:45 | NUR ---
DIALYSIS NURSE AT BEDSIDE
--- NOTE | 2020-07-10 17:18 | NUR ---
DIALYSIS STOPPED PER DIALYSIS NURSE AND CATHFLO ADMINISTERED PER MILES DIALYSIS NURSE, DR CABRERA AWARE
--- NOTE | 2020-07-10 22:44 | NUR ---
DIALYSIS COORDINATOR: [facility] MWF @ 6:20AM. [place].
[2020-07-11] VITALS (22 sets, daily range): BP systolic 80–134; BP diastolic 6–76
[2020-07-11 03:56] LABS: BASOPHILS 0.2 % (0-2); EOSINOPHILS 3.4 % (0-7); HEMATOCRIT 27.9 % (36.0-48.0); HEMOGLOBIN 8.2 g/dL (12-16); IMMATURE GRANULOCYTES 0.5 % (0-5); LYMPHOCYTE ABS# 0.56 10x3/uL (1.18-3.74); LYMPHOCYTES 9.4 % (15-50); MCH 26.4 pg (26.0-34.0); MCHC 29.4 g/dL (31.0-37.0); MCV 89.7 fL (80.0-100.0); MEAN PLATELET VOLUME 9.8 fL (7.4-10.4); MONOCYTES 8.6 % (2-11); NEUTROPHIL ABS# 4.63 10x3/uL (1.56-6.13); NEUTROPHILS 77.9 % (40-80); PLATELET COUNT 179 10x3/uL (130-400); RBC 3.11 10x6/uL (4.00-5.40); RDW 16.6 % (11.5-14.5); WBC 5.9 10x3/uL (4.8-10.8)
[2020-07-11 04:06] LABS: CARBON DIOXIDE 18.2 mmol/L (21.0-32.0); CREATININE - SERUM 7.8 mg/dL (0.6-1.3); MAGNESIUM - SERUM 1.8 mg/dL (1.8-2.4)
[2020-07-11 04:08] LABS: ANION GAP 19.1 mmol/L (8-16); CALCIUM 4.9 mg/dL (8.5-10.1); POTASSIUM - SERUM 4.3 mmol/L (3.5-5.1)
--- NOTE | 2020-07-11 12:53 | NUR ---
0745-DR CABRERA AT BEDSIDE-EPIDURAL BUTTON PUSHED-EXPLAINED TO PT CHEST TUBES READY TO REMOVE-SAME DONE BY DR [id number] GAUZE AND STERILE DRG APPLIED-DR CABRERA INFORMED OF PLAN FOR DIALYSIS THIS AM-R FEM LINE ORDERED OUT-REQUESTED TO USE DIALYSIS CATHETER ACCESS DURING DIALYSIS FOR NEOSYNEPHRINE GTT TO MAINTAIN MEAN BP >55 WHILE ON DIALYSIS-DR NORRIS AT BEDSIDE AND MADE AWARE OF CURRENT DIRECTION FOR FEM CENTRAL LINE-NO FURTHER ORDERS-R FEM LINE D/C-HEMOSTASIS MAINTAINED-R FEM MARIE REMOVED WITH TIP INTACT-PER POLICY-PRESSURE A
--- NOTE | 2020-07-11 18:45 | NUR ---
1130-DIALYSIS IN PROGRESS-NEOSYNEPHRINE IV STARTED AT 5MCG-TO KEEP MEAN>60 ON DIALYSIS 1215-OSTOMY BAG EMPTIED AND CLEANED 1330-DIALYSIS STOPPED -NOTED BY DIALYSIS NURSE BLOOD CLOT AT PULL ACCESS AND BY FILTER- 1600-R PERIPHERAL IV 20 G -LAB DRAWN FOR CA CHECK 1800-RESTING QUIETLY
[2020-07-12] VITALS (24 sets, daily range): BP systolic 74–118; BP diastolic 27–57
[2020-07-12 04:39] LABS: BASOPHILS 0.4 % (0-2); HEMATOCRIT 33.7 % (36.0-48.0); HEMOGLOBIN 9.9 g/dL (12-16); IMMATURE GRANULOCYTES 0.6 % (0-5); LYMPHOCYTE ABS# 0.76 10x3/uL (1.18-3.74); LYMPHOCYTES 11.2 % (15-50); MCH 26.8 pg (26.0-34.0); MCHC 29.4 g/dL (31.0-37.0); MCV 91.1 fL (80.0-100.0); MEAN PLATELET VOLUME 9.7 fL (7.4-10.4); MONOCYTES 7.4 % (2-11); NEUTROPHIL ABS# 5.17 10x3/uL (1.56-6.13); NEUTROPHILS 76.4 % (40-80); PLATELET COUNT 189 10x3/uL (130-400); RDW 16.6 % (11.5-14.5); WBC 6.8 10x3/uL (4.8-10.8)
[2020-07-12 05:00] LABS: ANION GAP 19.4 mmol/L (8-16); CARBON DIOXIDE 20.1 mmol/L (21.0-32.0); CREATININE - SERUM 7.9 mg/dL (0.6-1.3); PHOSPHOROUS 5.5 mg/dL (2.5-4.9); POTASSIUM - SERUM 4.5 mmol/L (3.5-5.1)
--- NOTE | 2020-07-12 08:19 | NUR ---
PT RESPONDED EASILY TO VERBAL -REQUESTED TO SLEEP LONGER -SR ON MONITOR-92%-RESP REG AND EVEN-NIBP 106/47
--- NOTE | 2020-07-12 11:06 | NUR ---
DIALYSIS SET UP IN PROGRESS
--- NOTE | 2020-07-12 13:18 | NUR ---
DIALYSIS REMAINS IN PROGRESS-PT RESTING WITH EYES CLOSED
[2020-07-13] VITALS (12 sets, daily range): BP systolic 83–120; BP diastolic 34–101; Ht 175.3 cm; Wt 117.7 kg
[2020-07-13 04:54] LABS: BASOPHILS 0.3 % (0-2); EOSINOPHILS 3.9 % (0-7); HEMATOCRIT 32.4 % (36.0-48.0); HEMOGLOBIN 9.4 g/dL (12-16); IMMATURE GRANULOCYTES 0.5 % (0-5); LYMPHOCYTE ABS# 0.83 10x3/uL (1.18-3.74); LYMPHOCYTES 14.2 % (15-50); MCH 26.4 pg (26.0-34.0); MEAN PLATELET VOLUME 10.2 fL (7.4-10.4); MONOCYTES 8.4 % (2-11); NEUTROPHIL ABS# 4.24 10x3/uL (1.56-6.13); NEUTROPHILS 72.7 % (40-80); PLATELET COUNT 210 10x3/uL (130-400); RBC 3.56 10x6/uL (4.00-5.40); RDW 16.5 % (11.5-14.5); WBC 5.8 10x3/uL (4.8-10.8)
[2020-07-13 05:07] LABS: ANION GAP 16.6 mmol/L (8-16); CARBON DIOXIDE 24.5 mmol/L (21.0-32.0); CREATININE - SERUM 7.2 mg/dL (0.6-1.3); PHOSPHOROUS 4.4 mg/dL (2.5-4.9); POTASSIUM - SERUM 4.1 mmol/L (3.5-5.1)
[2020-07-13 05:14] LABS: CALCIUM 6.7 mg/dL (8.5-10.1)
--- NOTE | 2020-07-13 10:13 | NUR ---
AMBULATED WITH PHYSICAL THERAPY TO BED
--- NOTE | 2020-07-13 14:06 | NUR ---
ARRIVE TO ROOM VIA WHEELCHAIR FROM CVICU. ALERT AND ORIENTED X4. ABULATES TO BED WITH MINIMAL ASSISTANCE. RT SIDE BACK INCISION INÉS INTACT. CONTINUE PAIN MANAGEMENT ORDERED. SCDs ON. CONTINUE PLAN OF CARE AND SAFETY PRECAUTIONS.
--- NOTE | 2020-07-13 20:00 | NUR ---
INITIAL ROUNDS AND ASSESSMENT COMPLETED. PT RESTING IN BED. ALERT/ORIENTED. O2 @ 2L/NC WITH NONLABORED RESPIRATIONS. IV TO RIGHT WRIST SLAINE LOCKED. LEFT CHEST WALL AVF THAT IS CURRENTLY NOT BEING USED. COLOSTOMY PATENT TO LEFT SIDE OF ABDOMEN. RESERVE LEFT ARM FOR THE AVF. CALL LIGHT IN REACH.
--- NOTE | 2020-07-14 02:41 | NUR ---
RESTING WITH NO DISTRESS. SR PER TELEMETRY. CALL LIGHT IN REACH.
--- NOTE | 2020-07-14 04:48 | NUR ---
PT RESTING WITH EYES CLOSED. RESP EVEN AND REGULAR. SR UP X2, CALL LIGHT WITHIN REACH.
[2020-07-14 06:08] LABS: BASOPHILS 0.2 % (0-2); EOSINOPHILS 3.7 % (0-7); HEMATOCRIT 35.5 % (36.0-48.0); HEMOGLOBIN 10.2 g/dL (12-16); IMMATURE GRANULOCYTES 0.9 % (0-5); LYMPHOCYTES 18.6 % (15-50); MCH 26.3 pg (26.0-34.0); MCHC 28.7 g/dL (31.0-37.0); MCV 91.5 fL (80.0-100.0); MEAN PLATELET VOLUME 10.3 fL (7.4-10.4); MONOCYTES 6.7 % (2-11); NEUTROPHIL ABS# 3.75 10x3/uL (1.56-6.13); NEUTROPHILS 69.9 % (40-80); PLATELET COUNT 220 10x3/uL (130-400); RBC 3.88 10x6/uL (4.00-5.40); RDW 16.7 % (11.5-14.5); WBC 5.4 10x3/uL (4.8-10.8)
[2020-07-14 06:31] LABS: ALBUMIN 2.4 g/dL (3.4-5.0); ANION GAP 15.1 mmol/L (8-16); BILIRUBIN - TOTAL 0.47 mg/dL (0.2-1.3); CARBON DIOXIDE 25.8 mmol/L (21.0-32.0); CREATININE - SERUM 8.4 mg/dL (0.6-1.3); POTASSIUM - SERUM 3.9 mmol/L (3.5-5.1); PROTEIN - SERUM 6.5 g/dL (6.4-8.2)
[2020-07-14 06:36] LABS: CALCIUM 6.7 mg/dL (8.5-10.1); PHOSPHOROUS 5.8 mg/dL (2.5-4.9)
--- NOTE | 2020-07-14 07:20 | NUR ---
RECIEVE REPORT. SITTING UP ON SIDE OF BED. SCDs ON LT LEG. ALERT AND ORIENTED X4. DENIES ANY NEEDS. CONTINUE PAIN MANAGEMENT ORDERED. CONTINUE PLAN OF CARE AND SAFETY PRECAUTIONS.
[2020-07-14 08:58] VITALS: BP 92/60
--- NOTE | 2020-07-14 13:31 | NUR ---
Nutrition Reassessment/Follow-up: POD 7 thoracotomy. Pt reports good appetite/PO intake. Denies N/V/C/D. HD MWF. Diet: Renal WT: 259# (07/13); 217# (07/08)Adj BW: 173.5# Last BM: 07/13 Labs noted: K+ 3.9, Ca 6.7, PO4 5.8, Alb 2.4 Meds noted: Calcitriol, Colace, Tums, Phenergan, Protonix, Miralax, Humulin Est needs: 6049-6501 kcal/day (30-35 kcal/kg adj BW) 95-105 g protein/day (1.2-1.3 g/kg adj BW) Fluid: 1000 mL + UOP -Encourage PO intake and honor food preferences within diet restrictions. -RD will follow up within 7 days if pt still admitted.
--- NOTE | 2020-07-14 19:45 | NUR ---
REPORT RECEIVED, WILL CONT POC. PT UP ON SIDE OF BED, A&O. NO S/S OF DISTRESS OBSERVED. PT ON BREATHING TREATMENT CURRENTLY. RR EVEN & UNLABORED. BED LOCKED AND LOWERED, CL IN REACH. ASSESSMENT COMPLETED AT THIS TIME.
[2020-07-14 20:00] VITALS: BP 128/74
[2020-07-15 04:00] VITALS: BP 108/50
--- NOTE | 2020-07-15 04:34 | MORECARE ---
CASE MANAGEMENT DISCHARGE SUMMARY PATIENT: RICHELLE CONNOLLY UNIT: [id number] ADM DATE: 07/01/20 AGE: 59 : 56 SEX: F ROOM/BED: D.2121 AUTHOR: FROY,DOC PHYSICIAN: REFERRING PHYSICIAN: KARAN ELIZABETH MD DATE OF SERVICE: 07/15/20 Case Management Discharge Planning Summary CT Patient Name: RICHELLE CONNOLLY Attending MD : SARAH ELIZABETH, Medical Record: [id number] Encounter : [id number] Facility : [address] [place] [address] Admission Date : 113:15 Center Discharge Date : [address] [place] [address] Date of : DC Plan ID : [id number] Age/Sex/Martia : 59/ F/S Printed on : 07/15/20 4:33 CT DCP Review Details Anticipated D/C: Expected LOS : Case Status : INITIATED - Initial Reviewe: [id number] - Argelia Scott Initial Review: 06/30/2020 Planned Disposi: 01 - Home or Self Care (Routine Discharge) Final Discharge: - Final Reviewer : : Final Review : DCP Focus Questions & Answers DCP Screen High Risk Factors: Hosp related to CHF, COPD, DM, End Stage Ds, CVA, CA DCP Evaluation Patient's ability to cope with chronic illness d. No chronic illness Would patient like to participate in any Care Not applicable Coordination programs (if applicable): Mental health screen: No mental health history DCP Re-evaluation Would patient like to participate in any Care Not applicable Coordination programs (if applicable): [facility] RICHELLE CONNOLLY MR#: [id number] /Age/Sex/[id number]-[id number] //F /S Attending Physician Name: GLENN [id number] Patient Account:[id number] [facility] Page -1 of 1 All edits/amendments must be made on the electronic document DICTATION DATE: 07/15/20432 COLOR CHECKER: INNA 07/15/20432 RPT#: [id number] DC DATE: STATUS: ADM IN [facility] [address] [place] [address] END OF REPORT
--- NOTE | 2020-07-15 04:45 | MORECARE ---
CASE MANAGEMENT DISCHARGE SUMMARY PATIENT: RICHELLE CONNOLLY UNIT: [id number] ADM DATE: 07/01/20 AGE: 59 : 56 SEX: F ROOM/BED: D.2301 AUTHOR: FROY,DOC PHYSICIAN: REFERRING PHYSICIAN: KARAN ELIZABETH MD DATE OF SERVICE: 07/15/20 Case Management Discharge Planning Summary CT Patient Name: RICHELLE CONNOLLY Attending MD : SARAH ELIZABETH, Medical Record: [id number] Encounter : [id number] Facility : [address] [place] [address] Medical Admission Date : 113:15 Center Discharge Date : [address] [place] [address] Date of : DC Plan ID : [id number] Age/Sex/Martia : 59/ F/S Printed on : 07/15/20 4:44 CT DCP Review Details Anticipated D/C: Expected LOS : Case Status : INITIATED - Initial Reviewe: [id number] - Argelia Scott Initial Review: 06/30/2020 Planned Disposi: 01 - Home or Self Care (Routine Discharge) Final Discharge: - Final Reviewer : : Final Review : Comments CT Entered Date Type Reviewer 07/15/20 4:34 CT Discharge Planning Argelia Scott Comment CM spoke with patient to complete initial dc planning assessment. CM educated patient on the CM role and verbal consent given by patient to complete assessment. Patient lives at home with family. Patient is independent. At discharge patient plans to return home and feels this is a safe discharge. CM discussed availability of home health, rehab services, and medical equipment. Patient has home 02 concentrator but no portable. She doesn't know who DME provder is. Patient may need walk test for portable 02. Patient has dialysis MWF and [facility] provides transportation there.Patient will have family to transport home. Patient denied known discharge needs at this time. CM will continue to follow and will assist as needed with dc plans/needs. DCP Focus Questions & Answers DCP Screen High Risk Factors: Hosp related to CHF, COPD, DM, End Stage Ds, CVA, CA DCP Evaluation Patient's current cognitive status: *Oriented to person, place, situation, time and present Patient's ability to cope with chronic illness b. Minimal (2 - 3 ED visits in 6 mos., limited financial resources, occasionally misses appts.) Does the patient have the ability to pay for or Yes attain post discharge needs / services? Functional screen assessment: Basic needs can adequately be met by self Family / Caregiver's ability to cope with chronic a. Adequate (ability to meet patient's illness: medical needs, ensures patient attends medical appts.) Physical Status: Independent with ADL's Is there a likelihood that the patient will No require additional services to return to the preadmission environment? Living Arrangements: Home with Extended Family Partial Dependence, assistance required for: Ambulation / Mobility Results of this evaluation have been discussed Patient with: Patient with capacity for self-care or can be Yes cared for in same environment as prior to hospitalization? Baseline cognitive status: *Oriented to person, place, situation, time and present Medication Management: Patient states can afford medications Pharmacy name(s): [facility] Does Patient have transportation to get home and Yes to follow-up medical appointments when discharged from the hospital? Would patient like to participate in any Care Not applicable Coordination programs (if applicable): Equipment in use: Walker - Rolling Equipment in use: Ostomy Supplies Equipment in use: Home Oxygen with Nasal Cannula Mental health screen: No mental health history Resources / Services in place: Dialysis - facility hemodialysis Contact information for resources in use: [facility] [phone] DCP Re-evaluation Would patient like to participate in any Care Not applicable Coordination programs (if applicable): [facility] RICHELLE CONNOLLY MR#: [id number] /Age/Sex/Upgphr5-Nbq-68 //F /S Attending Physician Name: Sumeet [id number] Patient Account:[id number] [facility] Page -1 of 1 All edits/amendments must be made on the electronic document DICTATION DATE: 07/15/20443 PREPRESS PROOFER: INNA 07/15/20443 RPT#: [id number] DC DATE: STATUS: ADM IN [facility] [address] [place] [address] END OF REPORT
[2020-07-15 06:34] LABS: BASOPHILS 0.4 % (0-2); EOSINOPHILS 3.4 % (0-7); HEMATOCRIT 35.1 % (36.0-48.0); HEMOGLOBIN 9.9 g/dL (12-16); IMMATURE GRANULOCYTES 1.1 % (0-5); LYMPHOCYTE ABS# 0.95 10x3/uL (1.18-3.74); LYMPHOCYTES 17.1 % (15-50); MCH 26.1 pg (26.0-34.0); MCHC 28.2 g/dL (31.0-37.0); MCV 92.4 fL (80.0-100.0); MEAN PLATELET VOLUME 10.6 fL (7.4-10.4); MONOCYTES 6.3 % (2-11); NEUTROPHIL ABS# 3.99 10x3/uL (1.56-6.13); NEUTROPHILS 71.7 % (40-80); PLATELET COUNT 188 10x3/uL (130-400); RDW 16.8 % (11.5-14.5); WBC 5.6 10x3/uL (4.8-10.8)
[2020-07-15 06:46] LABS: ALBUMIN 2.6 g/dL (3.4-5.0); ANION GAP 15.1 mmol/L (8-16); BILIRUBIN - TOTAL 0.55 mg/dL (0.2-1.3); CARBON DIOXIDE 25.5 mmol/L (21.0-32.0); CREATININE - SERUM 6.9 mg/dL (0.6-1.3); PHOSPHOROUS 4.7 mg/dL (2.5-4.9); POTASSIUM - SERUM 3.6 mmol/L (3.5-5.1)
[2020-07-15 06:49] LABS: CALCIUM 6.7 mg/dL (8.5-10.1)
--- NOTE | 2020-07-15 07:20 | NUR ---
ALERT AND ORIENTED X4. SITTING UP IN BED. COLOSTOMY BAG LEAKING. COLOSTOMY BAG REPLACED. DENIES ANY NEEDS. CONTINUE PLAN OF CARE AND SAFETY PRECAUTIONS.
[2020-07-15 07:28] VITALS: BP 108/50
[2020-07-15 15:00] VITALS: BP 108/60
--- NOTE | 2020-07-15 19:12 | NUR ---
ASSESSMENT COMPLETE, PT A&O. SITTING UP ON SIDE OF BED. RESPERATIONS NON LABORED, O2 AT 2 LITERS VIA NC. IV TO RIGHT ARM SL. SITE CLEAN AND DRY. INCISION WITH INÉS TO RIGHT BACK/SIDE OPEN TO AIR, NO DRAINAGE NOTED. LEFT IJ HEMOSPLIT, DRSG INTACT. LEFT ABD COLOSTOMY, BAG CHANGED EARLIER BY DAY SHIFT NURSE. PT ASKING FOR PAIN MEDICATION, STATED THAT AFTER HER SHOWER SHE IS "STARTING TO HURT A BIT" INFORMED PT THAT I WILL BE BACK SHORTLY WITH HER MEDICATIONS.
--- NOTE | 2020-07-15 19:28 | NUR ---
HS MEDS GIVEN WITH FRESH ICE WATER. NORCO 1 TAB GIVEN FOR C/O PAIN TO INCISION.
[2020-07-15 20:00] VITALS: BP 173/74
--- NOTE | 2020-07-15 22:42 | NUR ---
NORCO 1 TAB GIVEN AT PT REQUEST FOR C/O INCISIONAL PAIN, RATES PAIN AT A 6 ON PAIN SCALE.
--- NOTE | 2020-07-15 22:45 | NUR ---
UNABLE TO GET READING ON TELEMETRY, TELEMERTY STICKERS HAVE BEEN CHANGED OUT SEVERAL TIMES ON PT, BOX LIGHTS UP LIKE EVERY LEAD IS ATTACHED CORRECTLY, HOWEVER THERE IS NO READING ON TELEMERTY SCREEN, M.Lane. STATED THAT THE BOX ITS SELF WAS CHANGED OUT EARLIER TODAY, SYSTEM SOFTWARE DEVELOPER AT BED SIDE RIGHT NOW CHANGING OUT WIRES ON TELEMETRY BOX TO SEE IF THAT WILL MAKE A DIFFERENCE.
[2020-07-16] VITALS: BP 117/34
[2020-07-16 04:00] VITALS: BP 109/54
--- NOTE | 2020-07-16 05:44 | NUR ---
I have reviewed this patient and I concur with the Shift Assessment completed by the Licensed Practical Nurse today this shift.
[2020-07-16 07:08] LABS: ALBUMIN 2.4 g/dL (3.4-5.0); ANION GAP 16.9 mmol/L (8-16); BILIRUBIN - TOTAL 0.74 mg/dL (0.2-1.3); CARBON DIOXIDE 24.8 mmol/L (21.0-32.0); CREATININE - SERUM 8.5 mg/dL (0.6-1.3); PHOSPHOROUS 5.1 mg/dL (2.5-4.9); POTASSIUM - SERUM 3.7 mmol/L (3.5-5.1); PROTEIN - SERUM 6.2 g/dL (6.4-8.2)
--- NOTE | 2020-07-16 07:10 | NUR ---
RECEIVE SHIFT REPORT. RESTING IN BED. DENIES ANY NEEDS AT THIS TIME. STATES SHE FEELS GOOD THIS MORNING. CALL LIGHT IN REACH. WILL CONTINUE POC AND SAFETY PRECAUTIONS.
[2020-07-16 07:18] LABS: BASOPHILS 0.3 % (0-2); HEMATOCRIT 30.9 % (36.0-48.0); HEMOGLOBIN 8.8 g/dL (12-16); IMMATURE GRANULOCYTES 0.8 % (0-5); LYMPHOCYTE ABS# 1.09 10x3/uL (1.18-3.74); LYMPHOCYTES 18.1 % (15-50); MCHC 28.5 g/dL (31.0-37.0); MCV 91.4 fL (80.0-100.0); MEAN PLATELET VOLUME 10.4 fL (7.4-10.4); MONOCYTES 8.8 % (2-11); PLATELET COUNT 225 10x3/uL (130-400); RBC 3.38 10x6/uL (4.00-5.40); RDW 16.8 % (11.5-14.5)
[2020-07-16 07:41] LABS: CALCIUM 6.5 mg/dL (8.5-10.1)
[2020-07-16 08:12] VITALS: BP 133/43
--- NOTE | 2020-07-16 11:02 | NUR ---
DOWN TO DIALYSIS VIA BED.
[2020-07-16 12:16] VITALS: BP 138/82
--- NOTE | 2020-07-16 13:41 | NUR ---
OT NOTE: PT OUT FOR DIALYSIS DURING ATTEMPTED OT EVAL. WILL TRY AGAIN TOMORROW. PETERSON CAMP, OTR/L
--- NOTE | 2020-07-16 14:50 | NUR ---
REHAB PRESCREEN ORDER RECEIVED. PT STILL HAS AN OT EVAL PENDING. TODAY LOOKS TO BE HER DIALYSIS DAY. AFTER DISCUSSING HER WITH MY BUCKLE ATTACHER, IT IS FELT SHE WOULD BE A GOOD CANDIDATE FOR REHAB. I WILL START ENTERING HER SCREEN, AND WE SHOULD BE ABLE TO ACCEPT HER TOMORROW ONCE ALL THE APPROVALS ARE IN PLACE. THANK YOU FOR THIS REFERRAL. SYBIL FERMIN RN CLINICAL LIAISON, INPATIENT REHAB.
--- NOTE | 2020-07-16 15:45 | NUR ---
RETURN FROM DIALYSIS
[2020-07-16 16:06] VITALS: BP 130/72
[2020-07-16 20:00] VITALS: BP 119/51
--- NOTE | 2020-07-17 03:43 | NUR ---
I have reviewed this patient and I concur with the Shift Assessment completed by the Licensed Practical Nurse today this shift.
[2020-07-17 04:00] VITALS: BP 149/43
--- NOTE | 2020-07-17 07:13 | NUR ---
RECEIVE SHIFT REPORT. RESTING IN BED WITH EYES CLOSED. AROUSES TO VOICE. DENIES ANY NEEDS AT THIS TIME. AWAITING REHAB PLACEMENT. WILL CONTINUE POC AND SAFETY PRECAUTIONS.
[2020-07-17 08:00] VITALS: BP 109/52
[2020-07-17 08:05] LABS: ALBUMIN 2.6 g/dL (3.4-5.0); BILIRUBIN - TOTAL 0.68 mg/dL (0.2-1.3); CARBON DIOXIDE 30.8 mmol/L (21.0-32.0); CREATININE - SERUM 6.4 mg/dL (0.6-1.3); POTASSIUM - SERUM 3.8 mmol/L (3.5-5.1); PROTEIN - SERUM 6.2 g/dL (6.4-8.2)
[2020-07-17 08:06] LABS: CALCIUM 6.8 mg/dL (8.5-10.1)
--- NOTE | 2020-07-17 10:46 | NUR ---
AFTER SPEAKING WITH THERAPY, PT AMBULATED 300 FT WITH MIN ASSIST. SHE IS INDEPENDENT IN SELF CARE, AND UNFORTUNATELY IS TOO HIGH FUNCTIONING FOR INPATIENT REHAB. THIS INFORMATION HAS BEEN DISCUSSED WITH JOSY HANSON, LUBA LEAL RN CM, AND BAILEE GILL RN MUNITIONS HANDLER SUPERVISOR DURING IDG. THANK YOU AGAIN FOR THE REFERRAL. SYBIL FERMIN RN CLINICAL LIAISON, INPATIENT REHAB.
--- NOTE | 2020-07-17 14:00 | NUR ---
COLOSTOMY BAG CHANGED PER PATIENT REQUEST. TELEMETRY OFF. HEMOSPLIT DRESSING CHANGED. DISCHARGE INSTRUCTIONS GIVEN VERBALLY AND HANDOUTS PROVIDED. [facility] CALLED FOR DISCHARGE.
--- NOTE | 2020-07-17 14:47 | NUR ---
TAKEN DOWN TO ED ENTRANCE VIA WHEELCHAIR. REMAINS FREE FROM INJURY.
--- NOTE | 2020-07-17 23:22 | MORECARE ---
CASE MANAGEMENT DISCHARGE SUMMARY PATIENT: RICHELLE CONNOLLY UNIT: [id number] ADM DATE: 07/01/20 AGE: 59 : 56 SEX: F ROOM/BED: D.8253 AUTHOR: FROY,DOC PHYSICIAN: REFERRING PHYSICIAN: KARAN ELIZABETH MD DATE OF SERVICE: 07/17/20 Case Management Discharge Planning Summary COMMENTS ENTERED DATE: 07/15/20 4:34 CT COMMENT TYPE: Discharge Planning REVIEWER: Argelia Scott CM spoke with patient to complete initial dc planning assessment. CM educated patient on the CM role and verbal consent given by patient to complete assessment. Patient lives at home with family. Patient is independent. At discharge patient plans to return home and feels this is a safe discharge. CM discussed availability of home health, rehab services, and medical equipment. Patient has home 02 concentrator but no portable. She doesn't know who DME provder is. Patient may need walk test for portable 02. Patient has dialysis MWF and [facility] provides transportation there.Patient will have family to transport home. Patient denied known discharge needs at this time. CM will continue to follow and will assist as needed with dc plans/needs. DCP REVIEW SUMMARY ANTICIPATED D/C DATE: EXPECTED LOS : CASE STATUS: DCP Initiated INITIAL REVIEW: 06/30/2020 INITIAL REVIEWER: Argelia Scott FINAL DISCHARGE DISPOSITION: : FINAL REVIEWER: FINAL REVIEW DATE: DCP Focus Questions & Answers DCP Screen QUESTION: ANSWER High Risk Factors: : Hosp related to CHF, COPD, DM, End Stage Ds, CVA, CA DCP Evaluation QUESTION: ANSWER Patient's current cognitive status: : *Oriented to person, place, situation, time and present Patient's ability to cope with chronic illness : b. Minimal (2 - 3 ED visits in 6 mos., limited financial resources, occasionally misses appts.) Does the patient have the ability to pay for or attain post discharge needs / services? : Yes Functional screen assessment: : Basic needs can adequately be met by self Family / Caregiver's ability to cope with chronic illness: : a. Adequate (ability to meet patient's medical needs, ensures patient attends medical appts.) Physical Status: : Independent with ADL's Is there a likelihood that the patient will require additional services to return to the preadmission environment? : No Living Arrangements: : Home with Extended Family Partial Dependence, assistance required for: : Ambulation / Mobility Results of this evaluation have been discussed with: : Patient Patient with capacity for self-care or can be cared for in same environment as prior to hospitalization? : Yes Baseline cognitive status: : *Oriented to person, place, situation, time and present Medication Management: : Patient states can afford medications Pharmacy name(s): : [facility] Does Patient have transportation to get home and to follow-up medical appointments when discharged from the hospital? : Yes Would patient like to participate in any Care Coordination programs (if applicable): : Not applicable Equipment in use: : Walker - Rolling Equipment in use: : Ostomy Supplies Equipment in use: : Home Oxygen with Nasal Cannula Mental health screen: : No mental health history Resources / Services in place: : Dialysis - facility hemodialysis Contact information for resources in use: : [facility] [phone] DCP Re-evaluation QUESTION: ANSWER Would patient like to participate in any Care Coordination programs (if applicable): : Not applicable PATIENT: RICHELLE CONNOLLY ENCOUNTER: [id number] MEDICAL RECORD#: [id number] ADMISSION DATE: 07/01/2020 DISCHARGE DATE: 07/17/2020 ATTENDING MD: GLENN ELIZABETH : AGE: 59 MARITAL STATUS: S DC PLAN ID: [id number] FACILITY: [facility] PRINTED ON: 07/17/20 23:22 CT All edits/amendments must be made on the electronic document DICTATION DATE: 07/17/202320 CLOTH EXAMINER HAND: INNA 07/17/202320 RPT#: [id number] DC DATE:07/17/20 STATUS: DIS IN [facility] [address] [place] [address] END OF REPORT
== END 2020-07-17 14:47 | disposition home or self-care (01) | DRG 981 ==
LOC: D.ER 14:06 → D.M2 16:23 → OBSVTIME 16:23 → D.M2 16:23 → D.CVICU 07-01 13:15 → D.M2 07-13 13:57
PROVIDERS: Emergency Medicine; Family Medicine; Internal Medicine Nephrology; Thoracic Surgery (Cardiothoracic Vascular Surgery); ADMIT Family Medicine; ATTEND Family Medicine
PROC: 05HM33Z Insertion of Infusion Device into Right Internal Jugular Vein, Percutaneous Approach (ICD-10-PCS; 2020-07-01)
PROC: 0BQ Respiratory System, Repair (ICD-10-PCS; 2020-07-07)
PROC: 0W990ZZ Drainage of Right Pleural Cavity, Open Approach (ICD-10-PCS; 2020-07-07)
PROC: 0BNK0ZZ Release Right Lung, Open Approach (ICD-10-PCS; principal; 2020-07-07 09:54)
DX: T82.818A Embolism due to vascular prosthetic devices, implants and grafts, initial encounter (principal); N18.6 End stage renal disease; I50.33 Acute on chronic diastolic (congestive) heart failure; J96.01 Acute respiratory failure with hypoxia; J96.02 Acute respiratory failure with hypercapnia; I70.92 Chronic total occlusion of artery of the extremities; D68.69 Other thrombophilia; J94.2 Hemothorax; J95.812 Postprocedural air leak; D62 Acute posthemorrhagic anemia; R04.89 Hemorrhage from other sites in respiratory passages; I48.91 Unspecified atrial fibrillation; Z99.2 Dependence on renal dialysis; I95.89 Other hypotension; D63.1 Anemia in chronic kidney disease; E83.51 Hypocalcemia; E87.5 Hyperkalemia; E87.70 Fluid overload, unspecified

== ENCOUNTER → 2020-07-22 10:16 | Outpatient (CLI) | payer MEDICARE ==
[2020-07-13 23:28] VITALS: BMI 38.3
[~2020-07-22 10:16] MED LIST changes: +AMBIEN10 MG PO; +ASPIRIN81 MG PO; +CELEXA20 MG PO; +ELIQUIS2.5 MG PO; +FLUDROCORTISON0.1 MG PO; +GABAPENTIN100 MG PO; +NEURONTIN 300300 MG; +PHENERGAN25 M1 PO; +PROZAC20 MG PO; +SYNTHROID137 MCG PO; +XANAX0.5 MG PO; +ZOCOR10 MG PO
== END | disposition home or self-care (01) ==
LOC: D.RAD 10:16
PROVIDERS: ATTEND Thoracic Surgery (Cardiothoracic Vascular Surgery)
DX: Z98.890 Other specified postprocedural states (principal)

== ENCOUNTER → 2020-08-27 13:08 | Outpatient (CLI) | payer MEDICARE ==
[2020-07-13 23:28] VITALS: BMI 38.3
== END | disposition home or self-care (01) ==
LOC: D.RAD 13:08
PROVIDERS: ATTEND Thoracic Surgery (Cardiothoracic Vascular Surgery)
DX: Z98.890 Other specified postprocedural states (principal)